=== PATIENT | male | born 1945 | race Caucasian/White ===

== ENCOUNTER 2016-08-04 18:03 | Inpatient (IN) | payer MEDICARE, OTHER ==
[2016-08-04] VITALS (7 sets, daily range): BP systolic 109–143; BP diastolic 49–89
[~2016-08-04] VITALS: Ht 188 cm; Wt 109.8 kg
[~2016-08-04 18:03] MED LIST: AMIO200T50 PO; AMIO400T5 PO; AMOX-355 PO; ASP325TEC PO; ASPI-983 PO; ATOR80TA PO; ATOR80TA76 PO; CALC-787 PO; CALC-9 PO; CEPH500T PO; CLOP75TA PO; CLOP75TA28 PO; DCS100C PO; DIGO250T PO; DIGO250T15 PO; DILT180C84 PO; DLT240CCR PO; DRON400T2 PO; FRSM40T PO; FURO40TA4 PO; FURO80TA3 PO; GLIM2TAB PO; GLIM4TAB PO; HYDR-3720 PO; HYDR-3820 PO; HYDR1TAB86 PO; KCL10CCR PO; KCL20TCR PO; LEVO150T6 PO; LISI-552 PO; LISI10TA PO; LSNP20T PO; LVT.15T PO; MAGN250T7 PO; MAGN400T6 PO; METF-380 PO; METF1000 PO; METF500T8 PO; METFOR850T PO; METH5TAB86 PO; METO-272 PO; METO50TA7 PO; MORP30CA16 PO; NEBI5TAB8 PO; OMEG-109 PO; OMEG100010 PO; PANT40SU PO; PANT40TA PO; PANT40TA3 PO; PGLT30T PO; POTA20TA8 PO; PRAM1.5T4 PO; PRAM1.5T5 PO; PRAM1TAB3 PO; PRAM1TAB5 PO; RIVA20TA2 PO; ROPI2TAB28 PO; ROPI4TAB21 PO; ROPI4TAB3 PO; SITA100T PO; TRAZ-28 PO; VENL37.513 PO; WARF-47 PO; WARF2TAB6 PO; WARF3TAB PO; WARF3TAB6 PO; WARF4TAB PO; WARF4TAB7 PO; WRF2T PO
--- OUTSIDE RECORDS SUMMARY | 2016-08-04 18:08 | XMS REPORT | Continuity of Care Document ---
Author Author [facility] Organization [facility] Address Unknown Phone Unavailable Care Team Providers Care Paramedic Supervisor Name Role Phone DEYA DENNEY MD PCP Insurance Providers Payer Name Policy Number Subscriber Name Relationship [employer] [id number] Lorna Guzman 19 Self / Same As Patient [employer] [id number] Lorna Guzman Self / Same As Patient Advance Directives Directive Response Recorded Date/Time Advance Directives No 07/08/16 9:45am Health Care Power of Assessment Technician No 07/08/16 9:45am Organ Donor No 07/08/16 9:45am Resuscitation Status DNR-Pt Request 07/08/16 9:45am Problems Active Problems Medical Problem Onset Date Status CHF Unknown Acute COPD Unknown Acute Diabetic ulcer of ankle Unknown Acute Hypoxia Unknown Acute Pneumonia Unknown Acute Supratherapeutic INR Unknown Acute atrial fibrillation with rapid ventricular respons Unknown Acute atrial fibrillation with rapid ventricular respons Unknown Acute Medications Current Home Medications Medication Dose Units Route Directions Days/Qty Instructions Start Date Calcium Carbonate/Vitamin D3 1 Each 1 Tab Oral Daily 11/22/12 Sitagliptin Phosphate 100 Mg 100 Mg Oral Bedtime 11/22/12 Lisinopril 20 Mg 20 Mg Oral Daily 02/26/16 Metoprolol Succinate 50 Mg 50 Mg Oral Daily 02/26/16 Glimepiride 4 Mg 4 Mg Oral Daily 02/26/16 [place]-3 Fatty Acids/Fish Oil 1 Each 1,200 Mg Oral Daily 04/07/16 Pantoprazole Sodium 40 Mg 40 Mg Oral Daily 04/07/16 Furosemide 40 Mg 80 Mg Oral Daily TAKES 2 (40 MG) TABLETS 04/07/16 Pramipexole Di-Hcl 1.5 Mg 1.5 Mg Oral Bedtime 04/07/16 Levothyroxine Sodium 150 Mcg 150 Mcg Oral Daily 04/07/16 Potassium Chloride 20 Meq 20 Meq Oral Twice A Day 04/07/16 Atorvastatin Calcium 80 Mg 80 Mg Oral Bedtime 04/07/16 Hydrocodone/Acetaminophen 1 Each 1 Tab Oral Every 6 Hours as needed for Pain 04/07/16 Trazodone Hcl 50 Mg 50 Mg Oral Bedtime 07/03/16 Warfarin Sodium 3 Mg 3 Mg Oral Daily 07/05/16 Aspirin 81 Mg 81 Mg Oral Daily 07/05/16 Metformin Hcl 500 Mg 500 Mg Oral Daily@07 90 07/13/16 Methylphenidate Hcl 5 Mg 5 Mg Oral Twice A Day 60 07/13/16 Past Home Medications Medication Directions Ordered Status Levothyroxine Sodium (Levothroid) 150 Mcg Tablet, 150 Mcg Oral Bedtime Discontinued Warfarin Sodium 2 Mg Tab, 2 Mg Oral Daily 10/07/10 Discontinued Metformin Hcl (Glucophage) 850 Mg Tablet, 1 Each Oral Twice A Day With Meals 10/07/10 Discontinued Furosemide (Lasix) 40 Mg Tablet, 1 Each Oral Daily 10/07/10 Discontinued Potassium Chloride 10 Meq Tablet.sa, 10 Meq Oral Daily 10/07/10 Discontinued Lisinopril (Zestril) 10 Mg Tablet, 10 Mg Oral Daily 10/07/10 Discontinued Furosemide (Lasix) 80 Mg Tablet, 80 Mg Oral Daily 10/12/10 Discontinued Metformin Hcl (Glucophage) 1,000 Mg Tablet, 1000 Mg Oral Twice A Day Discontinued Potassium Chloride 20 Meq Tab, 20 Meq Oral Twice A Day 10/12/10 Discontinued Aspirin 325 Mg Tabec, 325 Mg Oral Daily 10/12/10 Discontinued Atorvastatin Calcium 80 Mg Tablet, 80 Mg Oral Bedtime 10/12/10 Discontinued Clopidogrel Bisulfate 75 Mg Tablet, 75 Mg Oral Daily 10/12/10 Discontinued [place]-3/Dha/Epa/Fish Oil 1,000 Mg Capsule, 1000 Mg Oral Twice A Day 10/12/10 Discontinued Pantoprazole Sodium 40 Mg Suspdr.pkt, 40 Mg Oral Daily 10/12/10 Discontinued Pramipexole Di-Hcl 1 Mg Tablet, 1 Mg Oral Bedtime 10/12/10 Discontinued Sitagliptin Phosphate 100 Mg Tablet, 100 Mg Oral Daily 03/07/11 Discontinued Amiodarone Hcl 200 Mg Tab, 200 Mg Oral Daily 06/28/12 Discontinued Furosemide 40 Mg Tab, 80 Mg Oral Daily 06/28/12 Discontinued Pramipexole Di-Hcl 1 Mg Tablet, 1 Mg Oral Daily 06/28/12 Discontinued Nebivolol Hcl 5 Mg Tablet, 5 Mg Oral Daily 06/28/12 Discontinued Calcium Citrate/Vitamin D3 1 Each Tablet, 600 Mg Oral Twice A Day 06/28/12 Discontinued Lisinopril 20 Mg Tab, 20 Mg Oral Bedtime 11/22/12 Discontinued Potassium Chloride 20 Meq Tabsr, 20 Meq Oral Twice A Day 11/22/12 Discontinued Pantoprazole Sodium 40 Mg Tablet.dr, 40 Mg Oral Bedtime 11/22/12 Discontinued Magnesium Oxide 250 Mg Tablet, 250 Mg Oral Daily 11/22/12 Discontinued Glimepiride 4 Mg Tablet, 4 Mg Oral Daily 11/22/12 Discontinued Pramipexole Di-Hcl 1 Mg Tablet, 1 Mg Oral Daily 11/22/12 Discontinued Acetaminophen/Hydrocodone Bitart (Lortab) 1 Each Tablet, 10-500 Mg Oral Twice A Day as needed 11/22/12 Discontinued Furosemide 40 Mg Tab, 80 Mg Oral Daily 12/14/12 Discontinued Rivaroxaban 20 Mg Tablet, 20 Mg Oral Daily 12/14/12 Discontinued Nebivolol Hcl 5 Mg Tablet, 1 Each Oral Daily 12/14/12 Discontinued Dronedarone Hydrochloride 400 Mg Tablet, 400 Mg Oral Twice A Day 12/14/12 Discontinued Ropinirole Hcl 2 Mg Tab.er.24h, 2 Mg Oral Hsprn 12/14/12 Discontinued Glimepiride 2 Mg Tablet, 4 Mg Oral Bedtime 08/19/13 Discontinued Warfarin Sodium 3 Mg Tablet, 3 Mg Oral Daily 08/19/13 Discontinued Ropinirole Hcl 4 Mg Tab.er.24h, 2 Mg Oral Bedtime 08/19/13 Discontinued Morphine Sulfate 30 Mg Cap.er.pel, 30 Mg Oral Bedtime 08/19/13 Discontinued Venlafaxine Hcl 37.5 Mg Tablet, 37.5 Mg Oral Daily 08/19/13 Discontinued Nebivolol Hcl 5 Mg Tablet, 1 Each Oral Daily 08/20/13 Discontinued Diltiazem Hcl 240 Mg Cap.sr.24h, 240 Mg Oral Daily@0900 08/22/13 Discontinued Digoxin 250 Mcg Tablet, 0.25 Mg Oral Daily 08/22/13 Discontinued Hydrocodone Bit/Acetaminophen 1 Each Tablet, 1 Each Oral Every 6 Hours as needed for Pain 09/01/13 Discontinued Docusate Sodium 100 Mg Capsule, 200 Mg Oral Daily for Shortness Of Breath Discontinued Warfarin Sodium 4 Mg Tablet, 4 Mg Oral Daily 09/04/13 Discontinued Nebivolol Hcl 5 Mg Tablet, 5 Mg Oral Bedtime 10/09/13 Discontinued Digoxin (Lanoxin) 250 Mcg Tablet, 250 Mcg Oral Bedtime 10/09/13 Discontinued Warfarin Sodium 4 Mg Tablet, 4 Mg Oral Bedtime 10/09/13 Discontinued Ropinirole Hcl 4 Mg Tablet, 2-4 Mg Oral Twice A Day as needed for Restlessness 10/17/13 Discontinued Acetaminophen/Hydrocodone Bitart ([place]) 1 Each Tablet, 1 Tab Oral Every 6 Hours as needed for Pain 10/17/13 Discontinued Warfarin Sodium 2 Mg Tablet, 2 Mg Oral Daily 10/17/13 Discontinued Glimepiride 4 Mg Tablet, 4 Mg Oral Bedtime 10/17/13 Discontinued Docusate Sodium 100 Mg Capsule, 200 Mg Oral Twice A Day 10/17/13 Discontinued Magnesium Oxide 400 Mg Tablet, 1 Each Oral Daily 04/13/14 Discontinued Pramipexole Di-Hcl 1.5 Mg Tablet, 1.5 Mg Oral Bedtime 04/13/14 Discontinued Warfarin Sodium 4 Mg Tablet, 4 Mg Oral Daily 04/13/14 Discontinued Warfarin Sodium 2 Mg Tablet, 2 Mg Oral As Directed 04/13/14 Discontinued Warfarin Sodium 3 Mg Tablet, 3 Mg Oral As Directed 04/13/14 Discontinued Warfarin Sodium 3 Mg Tablet, 3 Mg Oral As Directed 04/13/14 Discontinued Nebivolol Hcl 5 Mg Tablet, 10 Mg Oral Bedtime 04/15/14 Discontinued Ropinirole Hcl 4 Mg Tablet, 4 Mg Oral 02/26/16 Discontinued Cephalexin 500 Mg Tablet, 500 Mg Oral Three Times A Day 02/26/16 Discontinued Warfarin Sodium 3 Mg Tablet, 3 Mg Oral Daily 04/07/16 Discontinued Metformin Hcl 1,000 Mg Tablet, 1000 Mg Oral Twice A Day 04/07/16 Discontinued Clopidogrel Bisulfate 75 Mg Tablet, 75 Mg Oral Daily 04/08/16 Discontinued Aspirin 81 Mg Tablet.dr, 81 Mg Oral Daily 04/08/16 Discontinued Warfarin Sodium 2 Mg Tablet, 2 Mg Oral As Directed 07/03/16 Discontinued Metformin Hcl 1,000 Mg Tablet, 1000 Mg Oral Twice Daily After Meals 07/03/16 Discontinued Warfarin Sodium 3 Mg Tablet, 3 Mg Oral Daily 07/03/16 Discontinued Diltiazem Hcl 180 Mg Cap.er.24h, 180 Mg Oral Daily 07/04/16 Discontinued Amoxicillin/Potassium Clav 1 Each Tablet, 1 Each Oral Twice A Day 07/04/16 Discontinued Amoxicillin/Potassium Clav 1 Each Tablet, 1 Tab Oral Twice A Day 07/05/16 Discontinued Clopidogrel Bisulfate 75 Mg Tablet, 75 Mg Oral Daily 07/05/16 Discontinued Diltiazem Hcl 180 Mg Cap.er.24h, 180 Mg Oral Daily 07/05/16 Discontinued Social History Social History Problem Response Recorded Date/Time Alcohol Use Denies Use 02/26/2016 9:35pm Recreational Drug Use No 02/26/2016 9:35pm Recent Foreign Travel No 04/13/2014 6:00am Recent Infectious Disease Exposure No 04/13/2014 6:00am Hospitalization with Isolation Denies 04/15/2014 1:23pm Sexually Transmitted Disease No 07/05/2016 3:29pm HIV/AIDS No 07/05/2016 3:29pm Type Used Cigars 07/13/2016 4:33pm Recent Hopitalizations No 07/05/2016 3:29pm Sexually Transmitted Disease No 07/05/2016 3:29pm Hospitalization with Isolation Denies 04/15/2014 1:23pm Hospital Discharge Instructions No hospital discharge instructions. Plan of Care Discharge Date 07/13/16 4:33pm Disposition 01 HOME, SELF-CARE Instructions/Education Provided COPD Including Emphysema (DC) Exacerbation of COPD Prescriptions See Medication Section Referrals DEYA DENNEY MD (Unspecified) - 07/19/16 Address: [address] [place] [address] [address] [place] [address] [phone] Reason(s) for Referral: CALL DR DENNEY OFFICE FOR APPOINTMENT ON TUESDAY Additional Instructions/Education TAKE FIRST DOSE RITALIN WHEN YOU GET UP, TAKE SECOND DOES 4-5 HOURS LATER CONTINUE OXYGEN AT 3 LITERS PER NC FOLLOW UP TUESDAY Care Plan and Goals Functional Status Query Response Date Recorded Patient Orientation Person Place Time Situation July 12, 2016 2:30pm Patient Orientation Person Place Time Situation July 13, 2016 4:33pm Comprehension Ability Understands Concepts July 13, 2016 8:31am Allergies, Adverse Reactions, Alerts No known allergies. Immunizations No immunization records. Vital Signs Acute Vital Signs Vital Response Date/Time Temperature (Fahrenheit) 97.0 degrees F (97.6 - 99.5) 07/13/2016 4:31pm Temperature (Calculated Celsius) 36.68607 degrees C (36.4 - 37.5) 07/13/2016 8:00am Temperature Source Tympanic 07/13/2016 4:31pm Pulse Rate (adult) 92 bpm (60 - 90) 07/13/2016 4:31pm Respiratory Rate 19 bpm (12 - 24) 07/13/2016 4:31pm O2 Sat by Pulse Oximetry 97 % (88 - 100) 07/13/2016 4:31pm Blood Pressure 131/61 mm Hg 07/13/2016 4:31pm Blood Pressure Mean 84 mm Hg 07/13/2016 8:00am Pain Numeric Pain Scale 0-No Pain 07/13/2016 4:31pm Height (Feet) 6 feet 07/05/2016 3:28pm Height (Inches) 2.00 inches 07/05/2016 3:28pm Height (Calculated Centimeters) 187.103073 cm 07/05/2016 3:28pm Weight (Pounds) 227 pounds 07/05/2016 3:28pm Weight (Ounces) 8.0 oz 07/05/2016 3:28pm Weight (Calculated Grams) 934372.27 gm 07/05/2016 3:28pm Weight (Calculated Kilograms) 103.898885 kilograms 07/05/2016 3:28pm Calculated BMI 29.2 07/05/2016 3:28pm Capillary Refill Capillary Refill Less Than 3 Seconds 07/02/2016 9:03pm Results Laboratory Results Test Name Result Units Flags Reference Collection Date/Time Result Date/ Time Comments White Blood Count 7.6 10^3/uL 4.3-11.0 07/04/2016 5:10am 07/04/2016 5: 22am Red Blood Count 3.27 10^6/uL L 4.35-5.85 07/04/2016 5:10am 07/04/2016 5: 22am Hemoglobin 9.4 G/DL L 13.3-17.7 07/04/2016 5:10am 07/04/2016 5:22am Hematocrit 29 % L 40-54 07/04/2016 5:10am 07/04/2016 5:22am Mean Corpuscular Volume 89 FL 80-99 07/04/2016 5:07/04/2016 5: 22am Mean Corpuscular Hemoglobin 29 PG 25-34 07/04/2016 5:07/04/2016 5: 22am Mean Corpuscular Hemoglobin Concent 32 G/DL 32-36 07/04/2016 5: 5:22am Red Cell Distribution Width 19.0 % H 10.0-14.5 07/04/2016 5:2015 5:22am Platelet Count 212 10^3/uL 130-400 07/04/2016 5:07/04/2016 5:22am Mean Platelet Volume 10.0 FL 7.4-10.4 07/04/2016 5:07/04/2016 5: 22am Neutrophils (%) (Auto) 86 % H 42-75 07/04/2016 5:07/04/2016 5:22am Lymphocytes (%) (Auto) 6 % L 12-44 07/04/2016 5:07/04/2016 5:22am Monocytes (%) (Auto) 7 % 0-12 07/04/2016 5:07/04/2016 5:22am Eosinophils (%) (Auto) 1 % 0-10 07/04/2016 5:07/04/2016 5:22am Basophils (%) (Auto) 0 % 0-10 07/04/2016 5:07/04/2016 5:22am Neutrophils # (Auto) 6.6 X 10^3 1.8-7.8 07/04/2016 5:07/04/2016 5: 22am Lymphocytes # (Auto) 0.4 X 10^3 L 1.0-4.0 07/04/2016 5:07/04/2016 5: 22am Monocytes # (Auto) 0.5 X 10^3 0.0-1.0 07/04/2016 5:07/04/2016 5: 22am Eosinophils # (Auto) 0.1 10^3/uL 0.0-0.3 07/04/2016 5:07/04/2016 5 :22am Basophils # (Auto) 0.0 10^3/uL 0.0-0.1 07/04/2016 5:10am 07/04/2016 5: 22am Neutrophils % (Manual) 84 % 07/02/2016 9:10pm 07/02/2016 9:41pm Band Neutrophils 0 % 07/02/2016 9:10pm 07/02/2016 9:41pm Lymphocytes % (Manual) 74 % 07/02/2016 9:10pm 07/02/2016 9:41pm Monocytes % (Manual) 6 % 07/02/2016 9:10pm 07/02/2016 9:41pm Eosinophils % (Manual) 3 % 07/02/2016 9:10pm 07/02/2016 9:41pm Basophils % (Manual) 0 % 07/02/2016 9:10pm 07/02/2016 9:41pm Blood Morphology Comment NORMAL 07/02/2016 9:10pm 07/02/2016 9: 41pm Prothrombin Time 18.2 SEC H 12.2-14.7 07/04/2016 5:10am 07/04/2016 5: 34am INR Comment 1.5 H 0.8-1.4 07/04/2016 5:10am 07/04/2016 5:34am INTERPRETIVE DATA SUGGESTED THERAPEUTIC RANGE FOR INR'S: VENOUS THROMBOSIS, PULMONARY EMBOLISM, OR PREVENTION OF SYSTEMIC EMBOLISM (EG. IN ATRIAL FIBRILLATION): 2.0 - 3.0 MECHANICAL PROSTHETIC HEART VALVES: 2.5 - 3.5* *NOTE: INR'S UP TO 4.5 MAY BE NECESSARY IN SELECTED GROUPS OF HIGH RISK PATIENTS. [employer] CONSENSUS CONFERENCE ON ANTITHROMBOTIC THERAPY (2000). Activated Partial Thromboplast Time 38 SEC H 24-35 07/02/2016 9:10pm 9:33pm Urine Color YELLOW 07/02/2016 9:03pm 07/02/2016 9:32pm Urine Clarity CLEAR 07/02/2016 9:03pm 07/02/2016 9:32pm Urine pH 6 5-9 07/02/2016 9:03pm 07/02/2016 9:32pm Urine Specific Umbarger 1.015 * 1.016-1.022 07/02/2016 9:03pm 2015 9:32pm Urine Protein NEGATIVE NEGATIVE 07/02/2016 9:03pm 07/02/2016 9:32pm Urine Glucose (UA) NEGATIVE NEGATIVE 07/02/2016 9:03pm 07/02/2016 9: 32pm Urine RBC (Auto) NEGATIVE NEGATIVE 07/02/2016 9:03pm 07/02/2016 9: 32pm Urine Ketones NEGATIVE NEGATIVE 07/02/2016 9:03pm 07/02/2016 9:32pm Urine Nitrite NEGATIVE NEGATIVE 07/02/2016 9:03pm 07/02/2016 9:32pm Urine Bilirubin NEGATIVE NEGATIVE 07/02/2016 9:03pm 07/02/2016 9: 32pm Urine Urobilinogen NORMAL MG/DL NORMAL 07/02/2016 9:03pm 07/02/2016 9: 32pm Urine Leukocyte Esterase NEGATIVE NEGATIVE 07/02/2016 9:03pm 2015 9:32pm Urine RBC NONE /HPF 07/02/2016 9:03pm 07/02/2016 9:32pm Urine WBC NONE /HPF 07/02/2016 9:03pm 07/02/2016 9:32pm Urine Bacteria NONE /HPF 07/02/2016 9:03pm 07/02/2016 9:32pm Urine Squamous Epithelial Cells 0-2 /HPF 07/02/2016 9:03pm 2015 9:32pm Urine Crystals NONE /LPF 07/02/2016 9:03pm 07/02/2016 9:32pm Urine Casts NONE /LPF 07/02/2016 9:03pm 07/02/2016 9:32pm Urine Mucus NEGATIVE /LPF 07/02/2016 9:03pm 07/02/2016 9:32pm Urine Culture Indicated NO 07/02/2016 9:03pm 07/02/2016 9:32pm Sodium Level 135 MMOL/L 135-145 07/04/2016 5:10am 07/04/2016 5:42am Potassium Level 3.7 MMOL/L 3.6-5.0 07/04/2016 5:10am 07/04/2016 5:42am Chloride Level 102 MMOL/L 98-107 07/04/2016 5:10am 07/04/2016 5:42am Carbon Dioxide Level 24 MMOL/L 21-32 07/04/2016 5:10am 07/04/2016 5: 42am Anion Gap 9 MMOL/L 5-14 07/04/2016 5:10am 07/04/2016 5:42am Blood Urea Nitrogen 26 MG/DL H 7-18 07/04/2016 5:10am 07/04/2016 5:42am Creatinine 1.23 MG/DL 0.60-1.30 07/04/2016 5:10am 07/04/2016 5:42am BUN/Creatinine Ratio 21 07/04/2016 5:10am 07/04/2016 5:42am Estimat Glomerular Filtration Rate 58 07/04/2016 5:10am 07/04/2016 5:42am GFR INTERPRETIVE DATA UNITS FOR ESTIMATED GFR (eGFR): mL/min/1.73 M2 REFERENCE RANGE FOR ESTIMATED GFR (eGFR) eGFR NORMAL eGFR >60 MODERATELY DECREASED eGFR 30-59 SEVERLY DECREASED eGFR 15-29 KIDNEY FAILURE <15 (OR DIALYSIS) Glucose Level 212 MG/DL H 70-105 07/04/2016 5:10am 07/04/2016 5:42am Glucometer 173 MG/DL H 70-110 07/03/2016 5:10pm 07/03/2016 5:48pm Calcium Level 8.3 MG/DL L 8.5-10.1 07/04/2016 5:10am 07/04/2016 5:42am Phosphorus Level 3.4 MG/DL 2.3-4.7 07/03/2016 3:40am 07/03/2016 5:02am Magnesium Level 1.8 MG/DL 1.8-2.4 07/03/2016 3:40am 07/03/2016 5:02am Total Bilirubin 0.8 MG/DL 0.1-1.0 07/04/2016 5:10am 07/04/2016 5:42am Alkaline Phosphatase 79 U/L 40-136 07/04/2016 5:10am 07/04/2016 5:42am Aspartate Amino Transf (AST/SGOT) 14 U/L 5-34 07/04/2016 5:10am 2015 5:42am Alanine Aminotransferase (ALT/SGPT) 15 U/L 0-55 07/04/2016 5:10am 07/04 5:42am Total Creatine Kinase 160 U/L 30-200 07/02/2016 9:10pm 07/02/2016 9: 43pm Creatine Kinase MB 4.4 NG/ML <6.6 07/02/2016 9:10pm 07/02/2016 9:55pm Troponin I < 0.30 NG/ML <0.30 07/02/2016 9:10pm 07/02/2016 9:55pm B-Type Natriuretic Peptide 780.4 PG/ML H <100.0 07/02/2016 9:10pm 2015 9:58pm Total Protein 5.7 G/DL L 6.4-8.2 07/04/2016 5:10am 07/04/2016 5:42am Albumin 3.2 G/DL 3.2-4.5 07/04/2016 5:10am 07/04/2016 5:42am Lactic Acid Level 1.4 MMOL/L 0.5-2.0 07/02/2016 9:10pm 07/02/2016 9: 38pm Thyroid Stimulating Hormone (TSH) 1.08 UIU/ML 0.35-4.94 07/04/2016 5: 10am 07/04/2016 6:04am TSH [place] Testing 1.98 UIU/ML 0.35-4.94 07/02/2016 9:10pm 07/02/2016 10:03pm Arterial Blood pH 7.41 7.37-7.43 07/02/2016 10:30pm 07/02/2016 10: 43pm Arterial Blood Partial Pressure CO2 36 MMHG 35-45 07/02/2016 10:30pm 10:43pm Arterial Blood Partial Pressure O2 70 MMHG L 79-93 07/02/2016 10:30pm 10:43pm Arterial Blood HCO3 22 MMOL/L L 23-27 07/02/2016 10:30pm 07/02/2016 10: 43pm Arterial Blood Total CO2 23.4 MMOL/L 21.0-31.0 07/02/2016 10:30pm 07/02 10:43pm Arterial Blood Base Excess -2.2 MMOL/L -2.5-2.5 07/02/2016 10:30pm 10:43pm Arterial Blood Oxygen Saturation 95 % 94-100 07/02/2016 10:30pm 2015 10:43pm Blood Gas Puncture Site RT BRACH 07/02/2016 10:30pm 07/02/2016 10: 43pm Efe Test YES-POS 07/02/2016 10:30pm 07/02/2016 10:43pm Blood Gas Inspired Oxygen 4L 07/02/2016 10:30pm 07/02/2016 10:43pm Blood Gas Ventilator Setting NO 07/02/2016 10:30pm 07/02/2016 10: 43pm Blood Gas Patient Temperature 98.0 07/02/2016 10:30pm 07/02/2016 10 :43pm Pending Laboratory Results Test Name Collection Date/Time Microbiology Results Procedure Source Result Collection Date/Time Result Date/Time Blood Culture Peripheral, Rt Hand No growth 07/02/2016 9:49pm 07/03/2016 4: 27pm Blood Culture Peripheral, Not Otherwise Specified No growth 07/02/2016 9: 10pm 07/03/2016 4:27pm MRSA Screen Nasal MRSA not isolated 07/02/2016 11:35pm 07/04/2016 9:52am Procedures Procedure Status Date Provider(s) Tracing only of electrocardiogram Completed 07/02/16 ALEXANDER PETIT DO Tracing only of electrocardiogram Completed 07/02/16 CHARLA NICOLE DO Color Doppler echocardiography Active 07/03/16 FAWN IRENE MD [facility] FAC CCDS Tracing only of electrocardiogram Completed 07/03/16 FAWN IRENE MD [facility] FACC CCDS Encounters Encounter Location Arrival/Admit Date Discharge/Depart Date Attending Provider Discharged Inpatient [facility] 07/08/16 8:36am 4:33pm DEYA DENNEY MD Discharged Inpatient [facility] 07/05/16 2:45pm 8:36am DEYA DENNEY MD Discharged Inpatient [facility] 07/02/16 10:10pm 4:15pm DEYA DENNEY MD
[2016-08-04] MEDS ORDERED: RT-ALBUTEROL/IPRATROPIUM 3 ML (DUONEB) VIAL ONE (18:11)
[2016-08-04] MEDS ORDERED: methylPREDNISolone 125 MG (Solu-MEDROL) VIAL IVP ONE (18:30)
[2016-08-04] MEDS ORDERED: RT-ALBUTEROL/IPRATROPIUM 3 ML (DUONEB) VIAL INH ONE (18:30)
[2016-08-04] MEDS ORDERED: DILTIAZEM 25 MG/5 ML INJ (CARDIZEM) VIAL IVP ONE (18:30)
[2016-08-04 18:36] LABS: BASOPHILS % (AUTO) 0 % (0-10); EOSINOPHILS % (AUTO) 0 % (0-10); LYMPHOCYTES # (AUTO) 0.4 X 10^3 (1.0-4.0); LYMPHOCYTES % (AUTO) 3 % (12-44); MEAN CORPUSCULAR HEMOGLOBIN 29 PG (25-34); MEAN CORPUSCULAR HGB CONC 31 G/DL (32-36); MEAN CORPUSCULAR VOLUME 92 FL (80-99); MEAN PLATELET VOLUME 10.8 FL (7.4-10.4); MONOCYTES # (AUTO) 0.8 X 10^3 (0.0-1.0); MONOCYTES % (AUTO) 6 % (0-12); NEUTROPHILS # (AUTO) 12.9 X 10^3 (1.8-7.8); NEUTROPHILS % (AUTO) 91 % (42-75); PLATELET COUNT 237 10^3/uL (130-400); RED BLOOD COUNT 3.41 10^6/uL (4.35-5.85); RED CELL DISTRIBUTION WIDTH 19.7 % (10.0-14.5); WHITE BLOOD COUNT 14.3 10^3/uL (4.3-11.0)
[2016-08-04] MEDS: DILTIAZEM DRIP 100 MG in SODIUM CHLORIDE (ADD-VANTAGE) 100 ML IV SCH (18:40)
[2016-08-04 18:50] LABS: INR 2.2 (0.8-1.4); PROTHROMBIN TIME PATIENT 24.6 SEC (12.2-14.7)
[2016-08-04 19:01] LABS: ALBUMIN 3.6 G/DL (3.2-4.5); BILIRUBIN,TOTAL 1.4 MG/DL (0.1-1.0); CALCIUM 8.3 MG/DL (8.5-10.1); CREATININE SERUM 1.46 MG/DL (0.60-1.30); POTASSIUM 4.4 MMOL/L (3.6-5.0); TOTAL PROTEIN 6.6 G/DL (6.4-8.2); hs C REACTIVE PROTEIN 4.31 MG/DL (0.00-0.50)
[2016-08-04 19:08] LABS: BASOPHILS % (MANUAL) 1 %; LYMPHOCYTES % (MANUAL) 4 %; NEUTROPHILS % (MANUAL) 88 %
[2016-08-04 19:09] LABS: CRENATED RBC MODERATE; HYPOCHROMASIA MODERATE; POLYCHROMASIA SLIGHT
[2016-08-04 19:42] LABS: BILIRUBIN,URINE NEGATIVE (NEGATIVE); KETONES,URINE NEGATIVE (NEGATIVE); LEUKOCYTE ESTERASE ,URINE NEGATIVE (NEGATIVE); NITRITE,URINE NEGATIVE (NEGATIVE); PH,URINE 5 (5-9); PROTEIN,URINE NEGATIVE (NEGATIVE); UROBILINOGEN,URINE NORMAL (NORMAL)
--- NOTE | 2016-08-04 19:44 | Diagnostic Imaging Report ---
INDICATION: Difficulty breathing. EXAMINATION: Single view of the chest was obtained. COMPARISON: testicular blood present versus 07/04/16. FINDINGS: Five lobe interstitial edema has progressed from prior. There is mild cardiomegaly, increased. There is distention of the upper lobe pulmonary vessels with small bilateral pleural effusions, greater left. IMPRESSION: Worsened failure pattern with increased edema, venous hypertension and bilateral pleural effusions. Dictated by: Dictated on workstation # [id number]
[2016-08-04 19:52] LABS: SQUAMOUS EPITHELIAL CELL,UR RARE /HPF
[2016-08-04] MEDS ORDERED: FUROSEMIDE 40 MG/4 ML INJ (LASIX) IVP ONE (20:00)
[2016-08-04] MEDS ORDERED: CEFEPIME INJECTION 2,000 MG in NORMAL SALINE (BAXTER MINI) 50 ML IV ONE (20:15)
[2016-08-04] MEDS ORDERED: NORMAL SALINE (BAXTER MINI) 50 ML IV ONE (20:24)
[2016-08-04] MEDS ORDERED: CEFEPIME HCL 2 GM (MAXIPIME) VIAL ONE (20:24)
--- NOTE | 2016-08-04 20:25 | ED General ---
General Stated Complaint: SOA Nursing Triage Note: PT'S STEP-DAUGHTER STATES THAT THE PT GOT A BREATHING MACHINE ABOUT A MONTH AGO , HAS BEEN ON 3 LPM, LAST FEW DAYS HAD TO MOVE IT TO 4 LPM AND THE PT STILL FEELS SOB. LABORED BREATHING ON ARRIVAL. Nursing Sepsis Screen: Possible Sepsis Risk Source of Information: Patient, Family, Old Records Exam Limitations: No Limitations History of Present Illness Time Seen by Provider: 18:10 Initial Comments This 70-year-old gentleman with multiple health problems presents to the emergency room in respiratory distress. He was recently admitted for COPD exacerbation with cor pulmonale. He appears to have atrial fibrillation with RVR and is very tight and wheezing. He denies any recent fever. He has been doing nebulizer treatments at home approximately every 4 hours. He reports severe dyspnea on exertion. His primary care providers Dr. Garcia and his ad operations intern is Dr. Treviño. See prior notes from recent admission for more details. Allergies and Home Medications Allergies Coded Allergies: No Known Drug Allergies (Unverified , 07/05/16) Home Medications Aspirin 81 Mg Tablet.dr 81 MG PO DAILY (Reported) Atorvastatin Calcium 80 Mg Tablet 80 MG PO HS (Reported) Calcium Carbonate/Vitamin D3 1 Each Tablet 1 TAB PO DAILY (Reported) Furosemide 40 Mg Tablet 80 MG PO DAILY (Reported) TAKES 2 (40 MG) TABLETS Glimepiride 4 Mg Tablet 4 MG PO DAILY (Reported) Hydrocodone/Acetaminophen 1 Each Tablet 1 TAB PO Q6H PRN PRN PAIN (Reported) Levothyroxine Sodium 150 Mcg Tablet 150 MCG PO DAILY (Reported) Lisinopril 20 Mg Tablet 20 MG PO DAILY (Reported) Metformin HCl 500 Mg Tab.er.24h #90 500 MG PO DAILY@07 Prescribed by: DEYA GARCIA on 07/13/16 1042 Methylphenidate HCl 5 Mg Tablet #60 5 MG PO BID Prescribed by: DEYA GARCIA on 07/13/16 1042 Metoprolol Succinate 50 Mg Tab.er.24h 50 MG PO DAILY (Reported) [place]-3 Fatty Acids/Fish Oil 1 Each Capsule 1,200 MG PO DAILY (Reported) Pantoprazole Sodium 40 Mg Tablet.dr 40 MG PO DAILY (Reported) Potassium Chloride 20 Meq Tab.er.prt 20 MEQ PO BID (Reported) Pramipexole Di-HCl 1.5 Mg Tablet 1.5 MG PO HS (Reported) Sitagliptin Phosphate 100 Mg Tablet 100 MG PO HS (Reported) Trazodone HCl 50 Mg Tablet 50 MG PO HS (Reported) Warfarin Sodium 3 Mg Tablet 3 MG PO DAILY (Reported) Constitutional: no symptoms reported EENTM: other (congestion) Respiratory: see HPI Cardiovascular: see HPI Gastrointestinal: no symptoms reported Genitourinary: no symptoms reported Musculoskeletal: no symptoms reported Skin: no symptoms reported Psychiatric/Neurological: No Symptoms Reported Hematologic/Lymphatic: No Symptoms Reported Past Qlqpvhs-Urbbwe-Wpowgj Hx Patient Social History Alcohol Use: Denies Use Recreational Drug Use: No Smoking Status: Former Smoker Type Used: Cigars Recent Foreign Travel: No Contact w/Someone Who Travel: No Recent Infectious Disease Expo: No Recent Hopitalizations: Yes (SINUS INFECTION 07/2016) Physical Abuse Screen: No Sexual Abuse: No Immunizations Up To Date Tetanus Booster (TDap): Unknown PED Vaccines UTD: No Date of Pneumonia Vaccine: Jul 22, 2013 Date of Influenza Vaccine: Jun 01, 2016 Seasonal Allergies Seasonal Allergies: No Surgeries HX Surgeries: Yes (HEART STENTS) Surgeries: Coronary Stent Respiratory Hx Respiratory Disorders: Yes Respiratory Disorders: COPD Cardiovascular Hx Cardiac Disorders: Yes (STENTS) Cardiac Disorders: Atrial Fibrillation, Chronic Edema/Swelling, Coronary Artery Disease, High Cholesterol, Hypertension Neurological Hx Neurological Disorders: Yes Neurological Disorders: Dementia Reproductive System Hx Reproductive Disorders: No Sexually Transmitted Disease: No HIV/AIDS: No Genitourinary Hx Genitourinary Disorders: No Gastrointestinal Hx Gastrointestinal Disorders: No Musculoskeletal Hx Musculoskeletal Disorders: Yes (RESTLESS LEG SYNDROME) Endocrine Hx Endocrine Disorders: Yes Endocrine Disorders: Hypothyroidsim, Diabetes, Non-Insulin dep HEENT HX ENT Disorders: Yes (WEARS GLASSES TO READ) Hearing Impairment: Denies Cancer Hx Cancer: No Psychosocial Hx Psychiatric Problems: No Integumentary HX Skin/Integumentary Disorder: No Blood Transfusions Hx Blood Disorders: No Family Medical History Significant Family History: Heart Disease, Diabetes, Hypertension Family Medial History: Congestive heart failure 03 FATHER Family history: Arthritis 03 FATHER 03 MOTHER 09 BROTHER 09 SISTER Family history: Hypertension 03 FATHER History of - respiratory disease 03 FATHER 03 MOTHER 09 SISTER No Family History of: Abdominal aortic aneurysm Alcoholism Cancer Family history: Alzheimer's disease Family history: Asthma Family history: Breast disease Family history: Cardiovascular disease Family history: Diabetes mellitus Family history: Gastrointestinal disease Family history: Thyroid disorder Heart disease Kidney disease Myocardial infarction Parkinson's disease Psychotic disorder Seizure disorder Physical Exam Vital Signs Vital Sign - Last 12Hours 08/04/16 18:19 Temp 98.5 Pulse 133 Resp 26 B/P 135/89 Pulse Ox 91 O2 Delivery Nasal Cannula O2 Flow Rate 4 Capillary Refill : Greater Than 3 Seconds General Appearance: WD/WN Moderate Distress HEENT: PERRL/EOMI Normal ENT Inspection Neck: Normal Inspection Respiratory: Accessory Muscle UseNo Crackles, Respiratory Distress Wheezing ( very tight wheezing throughout) Cardiovascular: Irregularly Irregular Tachycardia Other (pitting edema of the lower extremities) Gastrointestinal: Normal Bowel Sounds Non Tender Soft Extremity: Swelling Other (pitting edema of the lower extremities bilaterally with chronic skin changes) Neurologic/Psychiatric: Alert Oriented x3 No Motor/Sensory Deficits Normal Mood/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 control counselor II-XII Norm as Tested Skin: Normal Color Warm/Dry Progress/Results/Core Measures Results/Orders Lab Results Laboratory Tests Test 08/04/16 18:15 08/04/16 19:24 08/05/16 03:48 Range/Units Acanthocytes SLIGHT Activated Partial Thromboplast Time 40 H 24-35 SEC Alanine Aminotransferase (ALT/SGPT) 25 0-55 U/L Albumin 3.6 3.2-4.5 G/DL Alkaline Phosphatase 93 40-136 U/L Anion Gap 10 5-14 MMOL/L Aspartate Amino Transf (AST/SGOT) 24 5-34 U/L B-Type Natriuretic Peptide 909.8 H <100.0 PG/ML BUN/Creatinine Ratio 18 Basophils # (Auto) 0.0 0.0 0.0-0.1 10^3/uL Basophils % (Manual) 1 % Basophils (%) (Auto) 0 0 0-10 % Blood Urea Nitrogen 27 H 7-18 MG/DL C-Reactive Protein High Sensitivity 4.31 H 0.00-0.50 MG/DL Calcium Level 8.3 L 8.5-10.1 MG/DL Carbon Dioxide Level 20 L 21-32 MMOL/L Chloride Level 102 98-107 MMOL/L Creatinine 1.46 H 0.60-1.30 MG/DL Crenated Cell MODERATE Eosinophils # (Auto) 0.0 0.0 0.0-0.3 10^3/uL Eosinophils (%) (Auto) 0 0 0-10 % Estimat Glomerular Filtration Rate 48 Free Thyroxine 1.16 0.70-1.48 NG/DL Glucose Level 287 H 70-105 MG/DL Hematocrit 31 L 28 L 40-54 % Hemoglobin 9.8 L 8.9 L 13.3-17.7 G/DL Hypochromasia MODERATE INR Comment 2.2 H 0.8-1.4 Lactic Acid Level 1.5 0.5-2.0 MMOL/L Lymphocytes # (Auto) 0.4 L 0.3 L 1.0-4.0 X 10^3 Lymphocytes % (Manual) 4 % Lymphocytes (%) (Auto) 3 L 2 L 12-44 % Mean Corpuscular Hemoglobin 29 29 25-34 PG Mean Corpuscular Hemoglobin Concent 31 L 31 L 32-36 G/DL Mean Corpuscular Volume 92 91 80-99 FL Mean Platelet Volume 10.8 H 11.0 H 7.4-10.4 FL Monocytes # (Auto) 0.8 0.2 0.0-1.0 X 10^3 Monocytes % (Manual) 7 % Monocytes (%) (Auto) 6 2 0-12 % Neutrophils # (Auto) 12.9 H 10.7 H 1.8-7.8 X 10^3 Neutrophils % (Manual) 88 % Neutrophils (%) (Auto) 91 H 96 H 42-75 % Platelet Count 237 216 130-400 10^3/uL Polychromasia SLIGHT Potassium Level 4.4 3.6-5.0 MMOL/L Prothrombin Time 24.6 H 12.2-14.7 SEC Red Blood Count 3.41 L 3.10 L 4.35-5.85 10^6/uL Red Cell Distribution Width 19.7 H 19.4 H 10.0-14.5 % Sodium Level 132 L 135-145 MMOL/L Thyroid Stimulating Hormone (TSH) 2.39 0.35-4.94 UIU/ML Total Bilirubin 1.4 H 0.1-1.0 MG/DL Total Protein 6.6 6.4-8.2 G/DL White Blood Count 14.3 H 11.1 H 4.3-11.0 10^3/uL Urine Bacteria NONE /HPF Urine Bilirubin NEGATIVE NEGATIVE Urine Casts NONE /LPF Urine Clarity CLEAR Urine Color YELLOW Urine Crystals NONE /LPF Urine Culture Indicated NO Urine Glucose (UA) 1+ H NEGATIVE Urine Ketones NEGATIVE NEGATIVE Urine Leukocyte Esterase NEGATIVE NEGATIVE Urine Mucus NEGATIVE /LPF Urine Nitrite NEGATIVE NEGATIVE Urine Protein NEGATIVE NEGATIVE Urine RBC NONE /HPF Urine RBC (Auto) NEGATIVE NEGATIVE Urine Specific [place] 1.010 L 1.016-1.022 Urine Squamous Epithelial Cells RARE /HPF Urine Urobilinogen NORMAL NORMAL MG/DL Urine WBC NONE /HPF Urine pH 5 5-9 My Orders Orders-EM SPANN MD Albuterol/Ipra Inhalation Soln (Duoneb I (08/04/16 18:30) Svn Sm Volume Nebulizer Rt-Rfs (08/04/16 18:17) Methylprednisolone Sod Succ (Solu-Medrol (08/04/16 18:30) Albuterol/Ipra Inhalation Soln (Duoneb I (08/04/16 18:11) Cbc With Automated Diff (08/04/16 18:18) Comprehensive Metabolic Panel (08/04/16 18:18) Lactic Acid Analyzer (08/04/16 18:18) Blood Culture (08/04/16 18:18) Sputum Culture (08/04/16 18:18) Ua Culture If Indicated (08/04/16 18:18) Protime With Inr (08/04/16 18:18) Partial Thromboplastin Time (08/04/16 18:18) Chest 1 View, Ap/Pa Only (08/04/16 18:18) O2 (08/04/16 18:18) Saline Lock/Iv-Start (08/04/16 18:18) Saline Lock/Iv-Start (08/04/16 18:18) Vital Signs Adult Sepsis Patie Q1HR (08/04/16 18:18) BNP (08/04/16 18:18) Hs C Reactive Protein (08/04/16 18:18) Diltiazem Injection (Cardizem Injection) (08/04/16 18:30) Sodium Chloride (Ad... W/Diltiazem Drip (08/04/16 18:30) Manual Differential (08/04/16 18:15) Furosemide Injection (Lasix Injection) (08/04/16 20:00) Cefepime Injection (Maxipime Injection) (08/04/16 20:15) Thyroid Stimulating Hormone (08/04/16 20:18) Free T4 (Free Thyroxine) (08/04/16 20:18) Cefepime Injection (Maxipime Injection) (08/04/16 20:24) Normal Saline ([place] Mini) (Ns ([place] (08/04/16 20:24) Medications Given in ED Current Medications Medications Dose Ordered Sig/Rina Route Start Time Stop Time Status Last Admin Dose Admin Albuterol/ Ipratropium 3 ml ONCE ONCE INH 08/04/16 18:30 08/04/16 18:31 DC 08/04/16 18:50 3 ML Cefepime HCl/ Sodium Chloride 50 ml @ 100 mls/hr ONCE ONCE IV 08/04/16 20:15 08/04/16 20:45 DC 08/04/16 20:33 100 MLS/HR Diltiazem HCl 10 mg ONCE ONCE IVP 08/04/16 18:30 08/04/16 18:31 DC 08/04/16 18:39 10 MG Furosemide 80 mg 80 mg ONCE ONCE IVP 08/04/16 20:00 08/04/16 20:01 DC 08/04/16 20:07 80 MG Methylprednisolone Sodium Succinate 62.5 mg ONCE ONCE IVP 08/04/16 18:30 08/04/16 18:31 DC 08/04/16 18:29 62.5 MG Vital Signs/I&O Vital Sign - Last 12Hours 08/04/16 08/04/16 08/04/16 08/04/16 18:19 18:20 18:40 18:45 Temp 98.5 98.5 Pulse 133 122 Resp B/P 135/89 Pulse Ox 91 91 91 O2 Delivery Nasal Cannula Nasal Cannula Nasal Cannula O2 Flow Rate 4 4 5.00 4 08/04/16 08/04/16 08/04/16 08/04/16 19:05 19:30 19:45 20:15 Temp 98.5 98.5 98.5 97.9 Pulse 114 124 121 121 Resp B/P 122/72 116/65 119/72 110/68 Pulse Ox 94 94 94 95 O2 Flow Rate 4 4 4 4 08/04/16 08/04/16 08/04/16 08/04/16 20:30 20:45 21:10 21:15 Temp 97.9 98.5 99.0 Pulse 132 113 105 Resp B/P 119/77 128/82 Pulse Ox 94 95 91 94 O2 Delivery Nasal Cannula Nasal Cannula Nasal Cannula O2 Flow Rate 2 3 6 8.00 08/04/16 08/04/16 08/04/16 08/04/16 21:29 21:30 21:30 21:45 Pulse 113 112 Resp 20 27 B/P 124/85 117/75 Pulse Ox 95 94 94 94 O2 Delivery High Flow N/C High Flow N/C Nasal Cannula Nasal Cannula O2 Flow Rate 8.00 8.00 8.00 8.00 08/04/16 08/04/16 08/04/16 08/04/16 21:49 22:00 22:15 22:30 Pulse 111 138 93 114 Resp 23 19 20 B/P 140/89 143/83 123/78 Pulse Ox 86 93 91 O2 Delivery Nasal Cannula Nasal Cannula Nasal Cannula O2 Flow Rate 8.00 8.00 8.00 08/04/16 08/04/16 08/05/16 08/05/16 22:37 23:00 00:00 00:00 Temp 98.0 Pulse 97 105 Resp 26 22 B/P 109/49 108/75 Pulse Ox 95 94 93 92 O2 Delivery High Flow N/C Nasal Cannula High Flow NC Nasal Cannula O2 Flow Rate 8.00 8.00 8.00 6.00 08/05/16 08/05/16 08/05/16 08/05/16 01:00 01:00 02:00 02:25 Pulse 125 122 110 Resp 25 35 B/P 124/77 110/67 Pulse Ox 91 94 94 O2 Delivery Nasal Cannula Nasal Cannula High Flow N/C O2 Flow Rate 6.00 6.00 8.00 08/05/16 08/05/16 08/05/16 03:22 04:00 04:00 Temp 98.0 99.0 Pulse 110 88 Resp 20 21 B/P 110/67 120/74 Pulse Ox 94 94 95 O2 Delivery High Flow NC High Flow NC O2 Flow Rate 8.00 8.00 8.00 Intake and Output 08/05/16 00:00 Intake Total 0 ml Output Total 600 ml Balance -600 ml Blood Pressure Mean: 104 Progress Note : Progress Note Patient was immediately given a DuoNeb treatment with BiPAP on standby. Solu- Medrol 62.5 mg was administered. Chest x-ray revealed worsening edema and congestion. Atrial fibrillation with RVR was likely contributing. A Cardizem bolus of 10 mg followed by a drip at 10 mg per hour was initiated. Heart rate improved nicely to the one teens. Blood pressure was stable. Patient was found to have an elevated WBC and CRP. There is concern for pneumonia. Broad- spectrum antibiotic coverage was initiated with cefepime. Blood cultures and lactic acid were processed. I had multiple discussions about CODE STATUS with the patient. After discussion with patient and family, it was determined he wishes to be full code at this time but does not want to be dependent on life support for a prolonged period of time. ECG Initial ECG Impression Date: Aug 04, 2016 Initial ECG Impression Time: 18:16 Initial ECG Rate: 129 Initial ECG Rhythm: A Fib/Flutter Initial ECG Impression: Atrial Fibrillation w/RVR Comment Atrial fibrillation with rapid ventricular rate. No significant ST elevation or depression. Diagnostic Imaging Diagonstic Imaging: Xray Plain Films/CT/US/NM/MRI: chest Comments chest x-ray viewed by me and report reviewed. See report below: NAME: YULIANA TOPETE [facility] REC#: [id number] PT STATUS: REG ER : 1945 PHYSICIAN: EM SPANN MD ADMIT DATE: 08/04/16/ER Draft Date of Exam:08/04/16 CHEST 1 VIEW, AP/PA ONLY INDICATION: Difficulty breathing. EXAMINATION: Single view of the chest was obtained. COMPARISON: testicular blood present versus 07/04/16. FINDINGS: Five lobe interstitial edema has progressed from prior. There is mild cardiomegaly, increased. There is distention of the upper lobe pulmonary vessels with small bilateral pleural effusions, greater left. IMPRESSION: Worsened failure pattern with increased edema, venous hypertension and bilateral pleural effusions. Dictated on workstation # [id number] Dict: 08/04/161932 Trans: 08/04/161943 [facility] [id number] Interpreted by: VICENTE JAEGER Departure Communication Time/Spoke to Admitting Phy: 20:05 Communication Case was reviewed with Dr. Patel who would like to patient admitted to the ICU with a cardiology consult. Steroids and broad-spectrum antibiotics will be continued. Time/Spoke to Consulting Physi: 20:15 Communication/Consulting Dr. Hoang was consulted for the atrial fibrillation with RVR. He will be continued on Cardizem drip for the time being. Impression Impression: Primary Impression: Respiratory failure Qualified Code: J96.21 - Acute and chronic respiratory failure with hypoxia Additional Impressions: Atrial fibrillation with RVR COPD exacerbation Pneumonia Qualified Code: J18.9 - Pneumonia, unspecified organism Disposition: ADMITTED INPATIENT Condition: Improved Decision to Admit Reason: Admit from ER (General) Decision to Admit/Date: Aug 04, 2016 Time/Decision to Admit Time: 18:10 Departure-Patient Inst. Referrals: DEYA GARCIA MD (PCP/Family) Primary Care Physician EM SPANN MD Aug 04, 2016 20:25
[2016-08-04 20:55] LABS: THYROID STIMULATING HORMONE 2.39 UIU/ML (0.35-4.94)
[2016-08-04] MEDS ORDERED: DILTIAZEM DRIP 100 MG/NS 100 ML IV SCH ×2 (21:30)
[2016-08-04] MEDS ORDERED: RT-ALBUTEROL/IPRATROPIUM 3 ML (DUONEB) VIAL INH PRN (21:30)
[2016-08-04] MEDS ORDERED: methylPREDNISolone 40 MG/ML (Solu-MEDROL) VIAL IV SCH (22:00)
[2016-08-04] MEDS: LEVOFLOXACIN 750 MG/D5W 150 ML PRE-MIX IV SCH (22:16)
[2016-08-04] MEDS: RT-ALBUTEROL/IPRATROPIUM 3 ML (DUONEB) VIAL INH SCH (22:37)
[2016-08-04] MEDS ORDERED: PHARMACY TO DOSE IV SCH (22:45)
[2016-08-04] MEDS ORDERED: VANCOMYCIN 1 GM ADD-VANTAGE VIAL IV ONE (23:49)
[2016-08-04] MEDS ORDERED: SODIUM CHLORIDE (ADD-VANTAGE) 250 ML ONE (23:49)
[2016-08-05] VITALS (24 sets, daily range): BP systolic 90–149; BP diastolic 35–77
[2016-08-05] MEDS: VANCOMYCIN 1 GM/NS 250 ML IVPB IV SCH ×4 (00:05→00:09)
[2016-08-05] MEDS: RT-ALBUTEROL/IPRATROPIUM 3 ML (DUONEB) VIAL INH SCH ×6 (02:25→22:25)
[2016-08-05] MEDS ORDERED: morphine INJ 4 MG/ML 1 ML (VIAL/SYRINGE) IVP PRN (02:30)
[2016-08-05] MEDS ORDERED: ALPRAZolam 0.25 MG (XANAX) TAB PO ONE (02:30)
[2016-08-05] MEDS: methylPREDNISolone 40 MG/ML (Solu-MEDROL) VIAL IV SCH ×3 (02:36→18:13)
[2016-08-05] MEDS: DILTIAZEM DRIP 100 MG in SODIUM CHLORIDE (ADD-VANTAGE) 100 ML IV SCH ×2 (03:22→20:48)
[2016-08-05 03:59] LABS: BASOPHILS % (AUTO) 0 % (0-10); EOSINOPHILS % (AUTO) 0 % (0-10); LYMPHOCYTES # (AUTO) 0.3 X 10^3 (1.0-4.0); LYMPHOCYTES % (AUTO) 2 % (12-44); MEAN CORPUSCULAR HEMOGLOBIN 29 PG (25-34); MEAN CORPUSCULAR HGB CONC 31 G/DL (32-36); MEAN CORPUSCULAR VOLUME 91 FL (80-99); MONOCYTES # (AUTO) 0.2 X 10^3 (0.0-1.0); MONOCYTES % (AUTO) 2 % (0-12); NEUTROPHILS # (AUTO) 10.7 X 10^3 (1.8-7.8); NEUTROPHILS % (AUTO) 96 % (42-75); PLATELET COUNT 216 10^3/uL (130-400); RED CELL DISTRIBUTION WIDTH 19.4 % (10.0-14.5); WHITE BLOOD COUNT 11.1 10^3/uL (4.3-11.0)
[2016-08-05 04:30] LABS: ALBUMIN 3.2 G/DL (3.2-4.5); BILIRUBIN,TOTAL 1.1 MG/DL (0.1-1.0); CREATININE SERUM 1.55 MG/DL (0.60-1.30); MAGNESIUM 1.9 MG/DL (1.8-2.4); POTASSIUM 4.2 MMOL/L (3.6-5.0); TOTAL PROTEIN 6.1 G/DL (6.4-8.2)
[2016-08-05] MEDS: inSUlin (REGULAR) HUMAN 1 UNIT/0.01 ML (CHARGE PER UNIT) SC SCH ×5 (05:50→21:21)
[2016-08-05] MEDS ORDERED: inSUlin (REGULAR) HUMAN 1 UNIT/0.01 ML (CHARGE PER UNIT) SC SCH (06:00)
--- NOTE | 2016-08-05 07:04 | Pulmonary Consultation ---
History of Present Illness History of Present Illness Date of Consultation 08/05/16 06:59 Date of Admission History of Present Illness 70yo with hx of COPD and cor pulmonale and recent hospitalization presented to ED secondary to acute respiratory distress worse with even little exertion . Upon admission he was noted to be in Afib RVR and was very wheezy. He was using Home SVN treatments without much relief. I am consulted for pulmonary/CC management. Allergies and Home Medications Allergies Coded Allergies: No Known Drug Allergies (Unverified , 07/05/16) Home Medications Aspirin 81 Mg Tablet.dr 81 MG PO DAILY (Reported) Atorvastatin Calcium 80 Mg Tablet 80 MG PO HS (Reported) Calcium Carbonate/Vitamin D3 1 Each Tablet 1 TAB PO DAILY (Reported) Furosemide 40 Mg Tablet 80 MG PO DAILY (Reported) TAKES 2 (40 MG) TABLETS Glimepiride 4 Mg Tablet 4 MG PO DAILY (Reported) Hydrocodone/Acetaminophen 1 Each Tablet 1 TAB PO Q6H PRN PRN PAIN (Reported) Levothyroxine Sodium 150 Mcg Tablet 150 MCG PO DAILY (Reported) Lisinopril 20 Mg Tablet 20 MG PO DAILY (Reported) Metformin HCl 500 Mg Tab.er.24h #90 500 MG PO DAILY@07 Prescribed by: DEYA DENNEY on 07/13/16 1042 Methylphenidate HCl 5 Mg Tablet #60 5 MG PO BID Prescribed by: DEYA DENNEY on 07/13/16 1042 Metoprolol Succinate 50 Mg Tab.er.24h 50 MG PO DAILY (Reported) [place]-3 Fatty Acids/Fish Oil 1 Each Capsule 1,200 MG PO DAILY (Reported) Pantoprazole Sodium 40 Mg Tablet.dr 40 MG PO DAILY (Reported) Potassium Chloride 20 Meq Tab.er.prt 20 MEQ PO BID (Reported) Pramipexole Di-HCl 1.5 Mg Tablet 1.5 MG PO HS (Reported) Sitagliptin Phosphate 100 Mg Tablet 100 MG PO HS (Reported) Trazodone HCl 50 Mg Tablet 50 MG PO HS (Reported) Warfarin Sodium 3 Mg Tablet 3 MG PO DAILY (Reported) Past Kifcijf-Nhyrcw-Xeodww Hx Patient Social History Alcohol Use: Denies Use Recreational Drug Use: No Smoking Status: Former Smoker Type Used: Cigars Recent Foreign Travel: No Contact w/Someone Who Travel: No Recent Infectious Disease Expo: No Recent Hopitalizations: Yes (SINUS INFECTION 07/2016) Physical Abuse Screen: No Sexual Abuse: No Immunizations Up To Date Tetanus Booster (TDap): Unknown PED Vaccines UTD: No Date of Pneumonia Vaccine: Jul 22, 2013 Date of Influenza Vaccine: Jun 01, 2016 Seasonal Allergies Seasonal Allergies: No Surgeries HX Surgeries: Yes (HEART STENTS, LEG STENTS ) Surgeries: Coronary Stent Respiratory Hx Respiratory Disorders: Yes Respiratory Disorders: COPD Cardiovascular Hx Cardiac Disorders: Yes (STENTS) Cardiac Disorders: Atrial Fibrillation, Chronic Edema/Swelling, Coronary Artery Disease, High Cholesterol, Hypertension Neurological Hx Neurological Disorders: Yes Neurological Disorders: Dementia Reproductive System Hx Reproductive Disorders: No Sexually Transmitted Disease: No HIV/AIDS: No Genitourinary Hx Genitourinary Disorders: No Gastrointestinal Hx Gastrointestinal Disorders: No Musculoskeletal Hx Musculoskeletal Disorders: Yes (RESTLESS LEG SYNDROME) Endocrine Hx Endocrine Disorders: Yes Endocrine Disorders: Hypothyroidsim, Diabetes, Non-Insulin dep HEENT HX ENT Disorders: Yes (WEARS GLASSES TO READ) Hearing Impairment: Denies Cancer Hx Cancer: No Psychosocial Hx Psychiatric Problems: No Integumentary HX Skin/Integumentary Disorder: No Blood Transfusions Hx Blood Disorders: No Adverse Reaction to a Blood Tr: No Family Medical History Significant Family History: Heart Disease, Diabetes, Hypertension Family Medial History: Congestive heart failure 03 FATHER Family history: Arthritis 03 FATHER 03 MOTHER 09 BROTHER 09 SISTER Family history: Hypertension 03 FATHER History of - respiratory disease 03 FATHER 03 MOTHER 09 SISTER No Family History of: Abdominal aortic aneurysm Alcoholism Cancer Family history: Alzheimer's disease Family history: Asthma Family history: Breast disease Family history: Cardiovascular disease Family history: Diabetes mellitus Family history: Gastrointestinal disease Family history: Thyroid disorder Heart disease Kidney disease Myocardial infarction Parkinson's disease Psychotic disorder Seizure disorder Review of Systems Constitutional: : Malaise: Sweats: WeaknessNo: Chills, Fever, Other Respiratory: : Cough: Dry: SOB with excertion: Shortness of breath: WheezingNo : Hemoptysis Cardiovascular: : Edema: Lt Headedness: Orthopnea: Paroxysmal Noc. DyspneaNo: Chest Pain Gastrointestinal: No: Abdominal Pain, Constipation, Diarrhea, Hematochezia, Melena, Nausea, Other, Vomiting Genitourinary: No Dysuria, No Frequency, No Incontinence, No Hematuria, No Retention, No Other Musculoskeletal: No: arm pain, back pain, foot pain, hand pain, leg pain, neck pain, other, shoulder pain Skin: No: Bruising, Jaundice, Lesions, Other, Rash Neurological: : Confusion: Incoordination: Weakness Exam Exam Vital Signs Date Time Temp Pulse Resp B/P Pulse Ox O2 Delivery O2 Flow Rate FiO2 08/05/16 06:30 92 High Flow N/C 8.00 08/05/16 06:00 100 22 116/58 94 High Flow NC 8.00 08/05/16 05:00 93 26 98/72 98 High Flow NC 8.00 08/05/16 04:00 99.0 88 21 120/74 95 High Flow NC 8.00 08/05/16 04:00 94 High Flow NC 8.00 08/05/16 03:22 98.0 110 20 110/67 94 8.00 08/05/16 03:00 86 23 119/35 95 Nasal Cannula 6.00 08/05/16 02:25 94 High Flow N/C 8.00 08/05/16 02:00 110 35 110/67 94 Nasal Cannula 6.00 08/05/16 01:00 122 25 124/77 91 Nasal Cannula 6.00 08/05/16 01:00 125 08/05/16 00:00 98.0 105 22 108/75 92 Nasal Cannula 6.00 08/05/16 00:00 93 High Flow NC 8.00 08/04/16 23:00 97 26 109/49 94 Nasal Cannula 8.00 08/04/16 22:37 95 High Flow N/C 8.00 08/04/16 22:30 114 20 123/78 91 Nasal Cannula 8.00 08/04/16 22:15 93 19 143/83 93 Nasal Cannula 8.00 08/04/16 22:00 138 23 140/89 86 Nasal Cannula 8.00 08/04/16 21:49 111 08/04/16 21:45 112 27 117/75 94 Nasal Cannula 8.00 08/04/16 21:30 113 20 124/85 94 Nasal Cannula 8.00 08/04/16 21:30 94 High Flow N/C 8.00 08/04/16 21:29 95 High Flow N/C 8.00 08/04/16 21:15 99.0 105 24 128/82 94 Nasal Cannula 8.00 08/04/16 21:10 98.5 113 26 91 Nasal Cannula 6 08/04/16 20:45 97.9 132 25 119/77 95 3 08/04/16 20:30 94 Nasal Cannula 2 08/04/16 20:15 97.9 121 26 110/68 95 4 08/04/16 19:45 98.5 121 26 119/72 94 4 08/04/16 19:30 98.5 124 24 116/65 94 4 08/04/16 19:05 98.5 114 24 122/73 94 4 08/04/16 18:45 91 Nasal Cannula 4 08/04/16 18:40 98.5 122 26 5.00 08/04/16 18:20 91 Nasal Cannula 4 08/04/16 18:19 98.5 133 26 135/89 91 Nasal Cannula 4 I & O 08/05/16 07:00 Intake Total 1050 ml Output Total 1300 ml Balance -250 ml General Appearance: WD/WN Mild Distress HEENT: PERRL/EOMI Normal ENT Inspection Neck: Normal Inspection Respiratory: Accessory Muscle UseNo Crackles, Decreased Breath Sounds Respiratory Distress Cardiovascular: Irregularly Irregular Tachycardia Other (pitting edema of the lower extremities) Capillary Refill: Greater Than 3 Seconds Extremity: Swelling Other (pitting edema of the lower extremities bilaterally with chronic skin changes) Neurologic/Psychiatric: Alert Oriented x3 No Motor/Sensory Deficits 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 Norm as Tested Skin: Normal Color Warm/Dry Results Lab Laboratory Tests 08/04/16 18:15 08/05/16 03:48 Assessment/Plan Assessment/Plan Pneumonia with sepsis -Almanza culture -continue broad spectrum abx for now COPDAE with pulmonary HTN -SVNs Q4 -add advair Acute on chronic diastolic CHF last echo December 2014 showed EF of 50% -hep lock IVF -repeat echo -Restart lasix Hx of Afib - not well controlled -currently on Cardizem gtt -cardiology consulted -PT has been on Coumadin therapy hx of SUNDAY-- pt states he has never had a CPAP machine -Even if mild SUNDAY is present pt need CPAP therapy especially secondary to comorbidities -Pt will need PSG in lab as out patient. Tobacco dependance Clinical Quality Measures DVT/VTE Risk/Contraindication: Risk Factor Score Per Nursin RFS Level Per Nursing on Admit: 4+=Very High BASSAM MCKEON DO Aug 05, 2016 07:04
[2016-08-05] MEDS: RT-ADVAIR HFA 115/21 MCG PER PUFF IH SCH ×2 (07:59→18:20)
[2016-08-05] MEDS ORDERED: NORMAL SALINE (BAXTER MINI) 50 ML IV ONE (08:49)
[2016-08-05] MEDS ORDERED: CEFEPIME HCL 2 GM (MAXIPIME) VIAL ONE (08:49)
[2016-08-05] MEDS: VANCOMYCIN 1500 MG/NS 500 ML IVPB IV SCH ×4 (09:00→20:02)
[2016-08-05] MEDS: FUROSEMIDE 40 MG/4 ML INJ (LASIX) IVP SCH (09:00)
[2016-08-05] MEDS: CEFEPIME 2 GM/NS 50 ML IVPB IV SCH ×2 (09:00)
[2016-08-05] MEDS ORDERED: METF500T8 PO (09:51)
[2016-08-05] MEDS ORDERED: OXYM15MI4 NS (09:51)
[2016-08-05] MEDS ORDERED: DILT180C PO (09:51)
[2016-08-05] MEDS ORDERED: SODI126M NS (09:51)
--- NOTE | 2016-08-05 12:52 | Diagnostic Imaging Report ---
EXAMINATION: Portable upright radiograph of the chest. INDICATION: Respiratory failure. COMPARISON: 08/04/2016. FINDINGS: There is cardiomegaly with interstitial pulmonary edema and suggestion of alveolar components of edema developing in the bases. There is also bilateral small effusions. The heart size is enlarged. No pneumothorax. The mediastinum and tamika appear unchanged. IMPRESSION: Developing bibasilar infiltrates probably related to worsening pulmonary edema. Dictated by: Dictated on workstation # [id number]
[2016-08-05] MEDS ORDERED: FUROSEMIDE 40 MG/4 ML INJ (LASIX) IVP NR (15:14)
[2016-08-05] MEDS: HYDROcodone/APAP 10 MG/325 MG (LORTAB) TAB PO PRN (16:19)
--- NOTE | 2016-08-05 17:10 | History & Physical-Hospitalist ---
HPI History of Present Illness: HPI/Chief Complaint Kristal is a 70-year-old white male with end-stage COPD and secondary cor pulmonale who noted increased shortness of breath over really unknown period of time. He is a very poor historian. Family report that for the past several days minimal activity was causing desaturation at home despite turning his oxygen level up from 3-5 L. He denied increased swelling over baseline but despite using his nebulizer every 4 hours still wheezing significantly on presentation to the emergency room. There he had a questionable basilar infiltrate but definite evidence for increased pulmonary vascularity bilateral pleural effusions and early pulmonary edema. His chronic atrial fibrillation and under stress his heart rate goes up and so he was also in A. fib with RVR. He denied chills fever but has increasing cough nonproductive. Overnight this is improved receiving Lasix with significant urine output. Date Seen 08/05/16 Attending Physician Mar Patel DO PCP Anthony Garcia MD Referring Physician Date of Admission Aug 04, 2016 at 20:31 Home Medications & Allergies Home Medications Reviewed patient Home Medication Reconciliation Form Allergies Coded Allergies: No Known Drug Allergies (Unverified , 07/05/16) Past Cwzuaye-Dsuywe-Ceetrc Hx Patient Social History Alcohol Use: Denies Use Recreational Drug Use: No Smoking Status: Former Smoker Type Used: Cigars Physical Abuse Screen: No Sexual Abuse: No Recent Foreign Travel: No Contact w/other who traveled: No Recent Hopitalizations: Yes (SINUS INFECTION 07/2016) Recent Infectious Disease Expo: No Immunizations Up To Date Tetanus Booster (TDap): Unknown Date of Pneumonia Vaccine: Jul 22, 2013 Date of Influenza Vaccine: Jun 01, 2016 Seasonal Allergies Seasonal Allergies: No Surgeries HX Surgeries: Yes (HEART STENTS, LEG STENTS ) Surgeries: Coronary Stent Respiratory Hx Respiratory Disorders: Yes Respiratory Disorders: COPD, Emphysema, Pneumonia Cardiovascular Hx Cardiovascular Disorders: Yes (STENTS) Cardiac Disorders: Atrial Fibrillation, Chronic Edema/Swelling, Coronary Artery Disease, High Cholesterol, Hypertension Neurological Hx Neurological Disorders: Yes Neurological Disorders: Dementia Reproductive System Hx Reproductive Disorders: No Sexually Transmitted Disease: No HIV/AIDS: No Genitourinary Hx Genitourinary Disorders: No Gastrointestinal Hx Gastrointestinal Disorders: No Musculoskeletal Hx Musculoskeletal Disorders: Yes (RESTLESS LEG SYNDROME) Endocrine Hx Endocrine Disorders: Yes Endocrine Disorders: Hypothyroidsim, Diabetes, Non-Insulin dep HEENT HX ENT Disorders: Yes (WEARS GLASSES TO READ) Hearing Impairment: Denies Cancer Hx Cancer: No Psychosocial Hx Psychiatric Problems: No Integumentary HX Skin/Integumentary Disorder: No Blood Transfusions Hx Blood Disorders: No Adverse Reaction to a Blood Tr: No Family Medical History Significant Family History: Heart Disease, Diabetes, Hypertension Family Hx: Congestive heart failure 03 FATHER Family history: Arthritis 03 FATHER 03 MOTHER 09 BROTHER 09 SISTER Family history: Hypertension 03 FATHER History of - respiratory disease 03 FATHER 03 MOTHER 09 SISTER No Family History of: Abdominal aortic aneurysm Alcoholism Cancer Family history: Alzheimer's disease Family history: Asthma Family history: Breast disease Family history: Cardiovascular disease Family history: Diabetes mellitus Family history: Gastrointestinal disease Family history: Thyroid disorder Heart disease Kidney disease Myocardial infarction Parkinson's disease Psychotic disorder Seizure disorder Review of Systems Constitutional: weakness Respiratory: cough dyspnea on exertion orthopnea short of breath wheezing Physical Exam Physical Exam Vital Signs Vital Sign - Last 12Hours 08/04/16 18:19 Temp 98.5 Pulse 133 Resp 26 B/P 135/89 Pulse Ox 91 O2 Delivery Nasal Cannula O2 Flow Rate 4 Capillary Refill : Greater Than 3 Seconds General Appearance: Chronically ill Mild Distress Respiratory: Other (so than a few rales in the bases that clear with deep inspiration is clear although breath sounds are diminished posteriorly. Anteriorly no wheezing was noted an apparent significant improvement from last night on admission) Cardiovascular: No Gallop No Murmur Irregularly Irregular Gastrointestinal: Normal Bowel Sounds No Organomegaly No Pulsatile Mass Non Tender Soft Extremity: Other (2+ brawny edema to the mid tibia are noted violaceous changes of venous insufficiency with scaling but no ulceration are noted bilaterally. Extremities are warm but unable to appreciate dorsalis pedis or posterior tibial pulses. No cyanosis is noted.) Neurologic/Psychiatric: Other (fatigue somnolent white male oriented 2 this is pretty much his baseline) Comments Laboratory Tests Test 08/04/16 18:15 08/04/16 19:24 08/05/16 03:48 08/05/16 09:31 Range/Units Acanthocytes SLIGHT Activated Partial Thromboplast Time 40 H 24-35 SEC Alanine Aminotransferase (ALT/SGPT) 25 23 0-55 U/L Albumin 3.6 3.2 3.2-4.5 G/DL Alkaline Phosphatase 93 87 40-136 U/L Anion Gap 10 10 5-14 MMOL/L Aspartate Amino Transf (AST/SGOT) 24 17 5-34 U/L B-Type Natriuretic Peptide 909.8 H 589.3 H <100.0 PG/ML BUN/Creatinine Ratio 18 18 Basophils # (Auto) 0.0 0.0 0.0-0.1 10^3/uL Basophils % (Manual) 1 % Basophils (%) (Auto) 0 0 0-10 % Blood Urea Nitrogen 27 H 28 H 7-18 MG/DL C-Reactive Protein High Sensitivity 4.31 H 0.00-0.50 MG/DL Calcium Level 8.3 L 8.0 L 8.5-10.1 MG/DL Carbon Dioxide Level 20 L 22 21-32 MMOL/L Chloride Level 102 99 98-107 MMOL/L Creatinine 1.46 H 1.55 H 0.60-1.30 MG/DL Crenated Cell MODERATE Eosinophils # (Auto) 0.0 0.0 0.0-0.3 10^3/uL Eosinophils (%) (Auto) 0 0 0-10 % Estimat Glomerular Filtration Rate 48 45 Free Thyroxine 1.16 0.70-1.48 NG/DL Glucose Level 287 H 530 *H 70-105 MG/DL Hematocrit 31 L 28 L 40-54 % Hemoglobin 9.8 L 8.9 L 13.3-17.7 G/DL Hypochromasia MODERATE INR Comment 2.2 H 0.8-1.4 Lactic Acid Level 1.5 0.5-2.0 MMOL/L Lymphocytes # (Auto) 0.4 L 0.3 L 1.0-4.0 X 10^3 Lymphocytes % (Manual) 4 % Lymphocytes (%) (Auto) 3 L 2 L 12-44 % Mean Corpuscular Hemoglobin 29 29 25-34 PG Mean Corpuscular Hemoglobin Concent 31 L 31 L 32-36 G/DL Mean Corpuscular Volume 92 91 80-99 FL Mean Platelet Volume 10.8 H 11.0 H 7.4-10.4 FL Monocytes # (Auto) 0.8 0.2 0.0-1.0 X 10^3 Monocytes % (Manual) 7 % Monocytes (%) (Auto) 6 2 0-12 % Neutrophils # (Auto) 12.9 H 10.7 H 1.8-7.8 X 10^3 Neutrophils % (Manual) 88 % Neutrophils (%) (Auto) 91 H 96 H 42-75 % Platelet Count 237 216 130-400 10^3/uL Polychromasia SLIGHT Potassium Level 4.4 4.2 3.6-5.0 MMOL/L Prothrombin Time 24.6 H 12.2-14.7 SEC Red Blood Count 3.41 L 3.10 L 4.35-5.85 10^6/uL Red Cell Distribution Width 19.7 H 19.4 H 10.0-14.5 % Sodium Level 132 L 131 L 135-145 MMOL/L Thyroid Stimulating Hormone (TSH) 2.39 0.35-4.94 UIU/ML Total Bilirubin 1.4 H 1.1 H 0.1-1.0 MG/DL Total Protein 6.6 6.1 L 6.4-8.2 G/DL White Blood Count 14.3 H 11.1 H 4.3-11.0 10^3/uL Urine Bacteria NONE /HPF Urine Bilirubin NEGATIVE NEGATIVE Urine Casts NONE /LPF Urine Clarity CLEAR Urine Color YELLOW Urine Crystals NONE /LPF Urine Culture Indicated NO Urine Glucose (UA) 1+ H NEGATIVE Urine Ketones NEGATIVE NEGATIVE Urine Leukocyte Esterase NEGATIVE NEGATIVE Urine Mucus NEGATIVE /LPF Urine Nitrite NEGATIVE NEGATIVE Urine Protein NEGATIVE NEGATIVE Urine RBC NONE /HPF Urine RBC (Auto) NEGATIVE NEGATIVE Urine Specific [place] 1.010 L 1.016-1.022 Urine Squamous Epithelial Cells RARE /HPF Urine Urobilinogen NORMAL NORMAL MG/DL Urine WBC NONE /HPF Urine pH 5 5-9 Magnesium Level 1.9 1.8-2.4 MG/DL Phosphorus Level 4.0 2.3-4.7 MG/DL Glucometer 431 *H 70-110 MG/DL Test 08/05/16 12:00 08/05/16 16:16 Range/Units Glucometer 388 H 426 *H 70-110 MG/DL Results Results/Procedures Lab Laboratory Tests 08/04/16 18:15 08/05/16 03:48 Assessment/Plan Admission Diagnosis 1. Acute exacerbation of COPD with cor pulmonale and secondary hypoxia without past history of hypercapnia. Normal CO2 levels speak against hypercapnia as well as the patient is significantly improved we'll not obtain an ABG at this time but continue diuretics and IV Cardizem for now. 2. Pneumonia and sepsis are doubtful that for today continue antibiotics confer with Dr. Verduzco. Likely repeat chest x-ray tomorrow. 3. chronic Atrial fibrillation with RVR brought on by number 1 improved likely more so by diuretic therapy than IV Cartia we'll defer to Dr. Hoang conversion to by mouth. 4. Acute exacerbation of chronic diastolic heart failure secondary to above improving continue IV diuretics. 5. CODE STATUS was discussed with the patient and his family he does not wish to undergo mechanical ventilation but at this time still requests CPR will indicate as such. His prognosis is poor as is his quality of life and I do not expect significant future improvement. Lastly he had undergone sleep study I believe 2 years ago at which time only mild sleep apnea was noted. As I recall he refused CPAP at that time. Clinical Quality Measures DVT/VTE Risk/Contraindication: Risk Factor Score Per Nursin RFS Level Per Nursing on Admit: 4+=Very High ANTHONY GARCIA MD Aug 05, 2016 17:10
--- NOTE | 2016-08-05 17:57 | Consultation-Cardiology ---
HPI-Cardiology Cardiology Consultation: Date of Consultation 08/05/16 Date of Admission Attending Physician Mar Patel DO Admitting Physician Anthony Garcia MD Consulting Physician Moses HOANG MD HPI: Chief Complaint: shortness of breath this is a 70-year-old gentleman whose primary donor processor is Dr. Aguero. he has history of coronary artery disease, peripheral artery disease, chronic diastolic heart failure, COPD, atrial fibrillation. He presents with shortness of breath and has been diagnosed with COPD, pneumonia and acute diastolic heart failure. The patient complains of shortness of breath with mild exertion. He had mild orthopnea. However he denies PND. He denies any palpitations or chest pain. Review of Systems-Cardiology Review of Systems Constitutional: No As described under HPI, No no symptoms reported, No chills, No fever, No lightheadedness, No malaise, No tiredness, No weight loss, No weight gain, No other Eyes: No As described under HPI, No no symptoms reported, No blindness, No blurred vision, No contact lenses, No drainage, No decreased acuity, No foreign body sensation, No glasses, No inflammation, No pain, No photophobia, No previous injury, No shadows, No tunnel vision, No other, No vision change Ears/Nose/Throat: No As described under HPI, No no symptoms reported, No chronic hearing loss, No epistaxis, No ear discharge, No ear pain, No loose teeth, No mouth pain, No mouth swelling, No nasal drainage, No nose pain, No recent hearing loss, No throat pain, No throat swelling, No ulcerations, No other Respiratory: orthopnea shortness of breath Cardiovascular: No no symptoms reported, No As described under HPI, No chest pain, No edema, No irregular heart rate, No lightheadedness, No palpitations, No syncope, No other Gastrointestinal: No no symptoms reported, No As described under HPI, No abdomen distended, No abdominal pain, No blood streaked bowels, No constipation , No diarrhea, No difficulty swallowing, No nausea, No poor appetite, No poor fluid intake, No rectal bleeding, No vomiting, No other, No nausea/vomiting/ diarrhea, No stool coloration changes Genitourinary: No no symptoms reported, No As described under HPI, No burning, No dysuria, No discharge, No frequency, No flank pain, No hematuria, No incontinence, No pain, No urgency, No other, No urine frequency changes, No urine coloration changes Musculoskeletal: No no symptoms reported, No As describe under HPI, No back pain, No gout, No joint pain, No joint swelling, No muscle pain, No muscle stiffness, No neck pain, No other Skin: No no symptoms reported, No As described under HPI, No change in color, No change in hair/nails, No dryness, No lesions, No lumps, No rash, No other, No skin related problems, No ulcerations, No rash on exposed areas, No ulcerations on exposed areas Psychiatric/Neurological: No As described under HPI, No anxiety, No depression , No emotional problems, No focal weakness, No headache, No no symptoms reported , No numbness, No other, No pre-existing deficit, No seizure, No syncope, No tingling, No tremors, No weakness Hematologic: No no symptoms reported, No As described under HPI, No anemia, No blood clots, No easy bleeding, No easy bruising, No swollen glands, No other, No bleeding abnormalities OSP-Fopuip-Iuipyd Hx Patient Social History Alcohol Use: Denies Use Recreational Drug Use: No Smoking Status: Former Smoker Type Used: Cigars Recent Foreign Travel: No Recent Infectious Disease Expo: No Physical Abuse Screen: No Sexual Abuse: No Immunizations Up To Date Tetanus Booster (TDap): Unknown Date of Pneumonia Vaccine: Jul 22, 2013 Date of Influenza Vaccine: Jun 01, 2016 Past Medical History PMH As described under Assessment. Family Medical History Family History: Congestive heart failure 03 FATHER Family history: Arthritis 03 FATHER 03 MOTHER 09 BROTHER 09 SISTER Family history: Hypertension 03 FATHER History of - respiratory disease 03 FATHER 03 MOTHER 09 SISTER No Family History of: Abdominal aortic aneurysm Alcoholism Cancer Family history: Alzheimer's disease Family history: Asthma Family history: Breast disease Family history: Cardiovascular disease Family history: Diabetes mellitus Family history: Gastrointestinal disease Family history: Thyroid disorder Heart disease Kidney disease Myocardial infarction Parkinson's disease Psychotic disorder Seizure disorder Allergies and Home Medications Allergies Coded Allergies: No Known Drug Allergies (Unverified , 07/05/16) Home Medications Atorvastatin Calcium 80 Mg Tablet 40 MG PO HS (Reported) TAKES 1/2 OF A (80 MG) TABLET Calcium Carbonate/Vitamin D3 1 Each Tablet 1 TAB PO BID (Reported) Diltiazem HCl 180 Mg Cap.er.24h 180 MG PO DAILY (Reported) Furosemide 40 Mg Tablet 80 MG PO DAILY (Reported) TAKES 2 (40 MG) TABLETS Glimepiride 4 Mg Tablet 4 MG PO HS (Reported) Hydrocodone/Acetaminophen 1 Each Tablet 1 TAB PO Q6H PRN PRN PAIN (Reported) Levothyroxine Sodium 150 Mcg Tablet 150 MCG PO HS (Reported) Lisinopril 20 Mg Tablet 20 MG PO DAILY (Reported) LAST FILLED 05/10/16 #30 Metformin HCl 500 Mg Tab.er.24h 500 MG PO BID (Reported) Metoprolol Succinate 50 Mg Tab.er.24h 50 MG PO HS (Reported) Kirvin-3 Fatty Acids/Fish Oil 1 Each Capsule 1,200 MG PO BID (Reported) Oxymetazoline HCl 15 Ml Mist 1 SPRAY NS DAILY PRN PRN PRN CONGESTION (Reported) Pantoprazole Sodium 40 Mg Tablet.dr 40 MG PO HS (Reported) Potassium Chloride 20 Meq Tab.er.prt 20 MEQ PO BID (Reported) Pramipexole Di-HCl 1.5 Mg Tablet 1.5 MG PO HS (Reported) Sitagliptin Phosphate 100 Mg Tablet 100 MG PO HS (Reported) Sodium Chloride 126 Ml Mist 1 SPRAY NS DAILY PRN PRN PRN CONGESTION (Reported) Trazodone HCl 50 Mg Tablet 50 MG PO HS PRN PRN SLEEP (Reported) Warfarin Sodium 3 Mg Tablet 3 MG PO DAILY (Reported) Physical Exam-Cardiology Physical Exam Vital Signs/I&O Vital Sign - Last 12Hours 08/05/16 08/05/16 08/05/16 08/05/16 06:00 06:30 07:00 07:00 Pulse 100 105 106 Resp 22 17 B/P 116/58 113/72 Pulse Ox 94 92 96 O2 Delivery High Flow NC High Flow N/C High Flow NC O2 Flow Rate 8.00 8.00 8.00 08/05/16 08/05/16 08/05/16 08/05/16 08:00 08:00 08:00 08:00 Temp 97.8 Pulse 102 Resp 7 B/P 90/64 Pulse Ox 96 96 95 O2 Delivery High Flow NC High Flow N/C High Flow NC O2 Flow Rate 7.00 8.00 8.00 08/05/16 08/05/16 08/05/16 08/05/16 09:00 09:57 12:13 12:13 Temp 96.9 Pulse 101 Resp 24 B/P 130/44 Pulse Ox 94 97 96 O2 Delivery High Flow NC High Flow N/C High Flow NC O2 Flow Rate 8.00 5.00 7.00 08/05/16 08/05/16 08/05/16 08/05/16 13:00 14:09 16:00 16:00 Temp 97.9 Pulse 106 Pulse Ox 97 96 O2 Delivery High Flow N/C High Flow NC O2 Flow Rate 5.00 7.00 Intake and Output 08/05/16 00:00 Intake Total 200 ml Output Total 600 ml Balance -400 ml Capillary Refill : Greater Than 3 Seconds Constitutional: No appears stated age, No AAO x 3, No apparent distress, No PERRL, No well-developed, No well-nourished, No other HEENT: No PERRL, No normal ENT inspection, No TMs normal, No pharynx normal, No scleral icterus (R), No scleral icterus (L), No pale conjunctivae (R), No pale conjunctivae (L), No photophobia, No TM abnormal (R), No TM abnormal (L), No pharyngeal erythema, No tonsillar exudate, No other, No discharge, No EOMI, No hearing is well preserved, No hard of hearing, No oral hygience is good, No ulceration, No xanthelasmas are seen Neck: No non-tender, No full range of motion, No supple, No normal inspection, No carotid bruit, No limited range of motion, No lymphadenopathy (R), No lymphadenopathy (L), No tender lateral, No tender midline, No thyromegaly, No other, No carotid pulses are 2 + bilaterally, No with good upstrokes Respiratory: chest expansion is symmetric chest is bilaterally symmetric crackles Cardiovascular: No regular rate-rhythm, irregularly irregularNo extra beats, No parasternal heave is noted, No JVD, No edema, No bradycardia, No tachycardia , No point of maximal impulse, No cardiac thrills are palpable, No S1 and S2, No gallop/S3, No gallop/S4, No diastolic murmur, No systolic murmur, No friction rub, No click, No other Gastrointestinal: No tender, No soft, No round, No distended, No pulsatile mass , No organomegaly, No guarding, No rebound, No tenderness, No hernia, No mass, No audible bowel sounds, No abnormal bowel sounds, No abdominal bruits, No spleenomegaly, No other Rectal: deferred Extremities: No normal range of motion, No non-tender, No normal inspection, No pedal edema, No calf tenderness, No normal capillary refill, No pelvis stable , No calf tenderness, No inflammation, No pedal edema, No slow capillary refill , No swelling, No other, No abrasion, No clubbing, No cyanosis, No ecchymosis, No laceration, No no lower extremity edema bilateral, No significant edema, No tenderness, No wound Neurologic/Psychiatric: No taker out II-XII nml as tested, No no motor/sensory deficits, No alert, No normal mood/affect, No oriented x 3, No abnormal cerebellar tests, No abnormal taker out II-XII, No abnormal gait, No aphasia, No EOM palsy, No facial droop, No motor weakness, No sensory deficit, No depressed affect, No disoriented x 3, No other, No grossly intact, No power is 5/5 both on sides Skin: No normal color, No warm/dry, No cyanosis, No cool, No diaphoresis, No damp, No ecchymosis, No jaundice, No mottled, No pallor, No rash, No tattoos/ piercings, No ulcerations, No rash on exposed areas, No ulcerations on exposed areas, No other Data Review Labs Laboratory Tests 08/04/16 18:15: Acanthocytes SLIGHT, Activated Partial Thromboplast Time 40H, Alanine Aminotransferase (ALT/SGPT) 25, Albumin 3.6, Alkaline Phosphatase 93, Anion Gap 10, Aspartate Amino Transf (AST/SGOT) 24, B-Type Natriuretic Peptide 909.8H, BUN /Creatinine Ratio 18, Basophils # (Auto) 0.0, Basophils % (Manual) 1, Basophils (%) (Auto) 0, Blood Urea Nitrogen 27H, C-Reactive Protein High Sensitivity 4.31H , Calcium Level 8.3L, Carbon Dioxide Level 20L, Chloride Level 102, Creatinine 1.46H, Crenated Cell MODERATE, Eosinophils # (Auto) 0.0, Eosinophils (%) (Auto) 0, Estimat Glomerular Filtration Rate 48, Free Thyroxine 1.16, Glucose Level 287H, Hematocrit 31L, Hemoglobin 9.8L, Hypochromasia MODERATE, INR Comment 2.2H , Lactic Acid Level 1.5, Lymphocytes # (Auto) 0.4L, Lymphocytes % (Manual) 4, Lymphocytes (%) (Auto) 3L, Mean Corpuscular Hemoglobin 29, Mean Corpuscular Hemoglobin Concent 31L, Mean Corpuscular Volume 92, Mean Platelet Volume 10.8H, Monocytes # (Auto) 0.8, Monocytes % (Manual) 7, Monocytes (%) (Auto) 6, Neutrophils # (Auto) 12.9H, Neutrophils % (Manual) 88, Neutrophils (%) (Auto) 91H, Platelet Count 237, Polychromasia SLIGHT, Potassium Level 4.4, Prothrombin Time 24.6H, Red Blood Count 3.41L, Red Cell Distribution Width 19.7H, Sodium Level 132L, Thyroid Stimulating Hormone (TSH) 2.39, Total Bilirubin 1.4H, Total Protein 6.6, White Blood Count 14.3H 08/04/16 19:24: Urine Bacteria NONE, Urine Bilirubin NEGATIVE, Urine Casts NONE, Urine Clarity CLEAR, Urine Color YELLOW, Urine Crystals NONE, Urine Culture Indicated NO, Urine Glucose (UA) 1+H, Urine Ketones NEGATIVE, Urine Leukocyte Esterase NEGATIVE, Urine Mucus NEGATIVE, Urine Nitrite NEGATIVE, Urine Protein NEGATIVE, Urine RBC NONE, Urine RBC (Auto) NEGATIVE, Urine Specific [place] 1.010L, Urine Squamous Epithelial Cells RARE, Urine Urobilinogen NORMAL, Urine WBC NONE, Urine pH 5 08/05/16 03:48: Alanine Aminotransferase (ALT/SGPT) 23, Albumin 3.2, Alkaline Phosphatase 87, Anion Gap 10, Aspartate Amino Transf (AST/SGOT) 17, B-Type Natriuretic Peptide 589.3H, BUN/Creatinine Ratio 18, Basophils # (Auto) 0.0, Basophils (%) (Auto) 0 , Blood Urea Nitrogen 28H, Calcium Level 8.0L, Carbon Dioxide Level 22, Chloride Level 99, Creatinine 1.55H, Eosinophils # (Auto) 0.0, Eosinophils (%) ( Auto) 0, Estimat Glomerular Filtration Rate 45, Glucose Level 530*H, Hematocrit 28L, Hemoglobin 8.9L, Lymphocytes # (Auto) 0.3L, Lymphocytes (%) (Auto) 2L, Mean Corpuscular Hemoglobin 29, Mean Corpuscular Hemoglobin Concent 31L, Mean Corpuscular Volume 91, Mean Platelet Volume 11.0H, Monocytes # (Auto) 0.2, Monocytes (%) (Auto) 2, Neutrophils # (Auto) 10.7H, Neutrophils (%) (Auto) 96H, Platelet Count 216, Potassium Level 4.2, Red Blood Count 3.10L, Red Cell Distribution Width 19.4H, Sodium Level 131L, Total Bilirubin 1.1H, Total Protein 6.1L, White Blood Count 11.1H, Magnesium Level 1.9, Phosphorus Level 4.0 08/05/16 09:31: Glucometer 431*H 08/05/16 12:00: Glucometer 388H 08/05/16 16:16: Glucometer 426*H Microbiology 08/04/16 Blood Culture - Preliminary, Resulted No growth 08/04/16 Gram Stain - Final, Resulted 08/04/16 Sputum Culture - Preliminary, Resulted Usual/normal amish isolated. A/P-Cardiology Assessment/Admission Diagnosis 1. Shortness of breath, 2. Coronary artery disease, 3. PAD, 4. Atrial fibrillation, 5. Diastolic heart failure, 6. Pneumonia, 7. COPD Plan Acute on chronic diastolic CHF. continue IV Lasix. Strict input and output, 1 L fluid restriction.Most recent 2-D echocardiogram in December 2014 revealed EF of 50 percent, diastolic dysfunction Permanent atrial fibrillation, rate is not well controlled. increase Cardizem dose to 10 mg per hour. Start home dose of Toprol. [id number] score is 5. Is on stroke prophylaxis with oral warfarin Coronary artery disease, history of 2.5x18 mm Henderson stent to the circumflex artery, 2 stents to the right coronary artery using Promus stent 3.0x15 mm and 3.5x15 mm done in 2010. Had a cardiac catheterization on April 07, 2016 showing moderate coronary artery disease, moderate in-stent restenosis in the circumflex artery, mild to moderate disease in the right coronary artery, treated conservatively. Peripheral arterial disease, successful PCI to chronic total occlusion of the L SFA on 04/07/16 Carotid artery stenosis-left moderate ICA stenosis, 40-59 percent, right mild ICA stenosis less than 40 percent per most recent carotid duplex done in March 2016 Chronic tobacco use - he quit 8 weeks ago. I congratulated him on smoking cessation. COPD managed by pcp Hypertension, well controlled on the current medications, continue to monitor blood pressure Hyperlipidemia Diabetes mellitus, managed by pcp Pulmonary hypertension secondary to COPD Hypothyroidism, followed and managed by pcp Thank you for your consultation. Please call me if you have any questions. Renata Hoang MD, FACP, FACC, FSCAI, FHRS, CCDS Interventional Cardiology Cardiac Electrophysiology Vascular Medicine and Endovascular Interventions Clinical Quality Measures DVT/VTE Risk/Contraindication: Risk Factor Score Per Nursin RFS Level Per Nursing on Admit: 4+=Very High Moses HOANG MD Aug 05, 2016 5:57 pm
[2016-08-05] MEDS: meTOproloL SUCCINATE 50 MG (TOPROL XL) TAB PO SCH (21:00)
[2016-08-05] MEDS: LEVOFLOXACIN 750 MG/D5W 150 ML PRE-MIX IV SCH (21:21)
[2016-08-06] VITALS (14 sets, daily range): BP systolic 91–141; BP diastolic 55–77
[2016-08-06] MEDS ORDERED: NORMAL SALINE (BAXTER MINI) 50 ML IV ONE (00:03)
[2016-08-06] MEDS ORDERED: CEFEPIME HCL 2 GM (MAXIPIME) VIAL ONE (00:03)
[2016-08-06] MEDS: CEFEPIME 2 GM/NS 50 ML IVPB IV SCH ×2 (00:16)
[2016-08-06] MEDS: inSUlin (REGULAR) HUMAN 1 UNIT/0.01 ML (CHARGE PER UNIT) SC SCH ×4 (00:39→20:27)
[2016-08-06] MEDS ORDERED: inSUlin REGULAR TPN/DRIP ONLY 250 UNITS in NORMAL SALINE 247.5 ML IV SCH (01:30)
[2016-08-06] MEDS ORDERED: NS (IVPB) 250 ML ONE (01:51)
[2016-08-06] MEDS ORDERED: inSUlin (REGULAR) HUMAN 1 UNIT/0.01 ML (CHARGE PER UNIT) ONE (01:52)
[2016-08-06] MEDS ORDERED: NS IV 1000 ML 1,000 ML IV SCH (02:00)
[2016-08-06] MEDS: methylPREDNISolone 40 MG/ML (Solu-MEDROL) VIAL IV SCH (02:31)
[2016-08-06] MEDS: RT-ALBUTEROL/IPRATROPIUM 3 ML (DUONEB) VIAL INH SCH ×6 (02:33→21:54)
[2016-08-06 04:24] LABS: BASOPHILS % (AUTO) 0 % (0-10); EOSINOPHILS % (AUTO) 0 % (0-10); LYMPHOCYTES # (AUTO) 0.3 X 10^3 (1.0-4.0); LYMPHOCYTES % (AUTO) 2 % (12-44); MEAN CORPUSCULAR HEMOGLOBIN 29 PG (25-34); MEAN CORPUSCULAR HGB CONC 31 G/DL (32-36); MEAN CORPUSCULAR VOLUME 92 FL (80-99); MEAN PLATELET VOLUME 10.7 FL (7.4-10.4); MONOCYTES # (AUTO) 0.3 X 10^3 (0.0-1.0); MONOCYTES % (AUTO) 2 % (0-12); NEUTROPHILS # (AUTO) 14.6 X 10^3 (1.8-7.8); NEUTROPHILS % (AUTO) 97 % (42-75); PLATELET COUNT 219 10^3/uL (130-400); RED BLOOD COUNT 2.96 10^6/uL (4.35-5.85); RED CELL DISTRIBUTION WIDTH 19.1 % (10.0-14.5); WHITE BLOOD COUNT 15.1 10^3/uL (4.3-11.0)
[2016-08-06 05:03] LABS: ALBUMIN 3.3 G/DL (3.2-4.5); BILIRUBIN,TOTAL 0.7 MG/DL (0.1-1.0); CALCIUM 7.9 MG/DL (8.5-10.1); CREATININE SERUM 1.36 MG/DL (0.60-1.30); MAGNESIUM 2.1 MG/DL (1.8-2.4); PHOSPHORUS 3.5 MG/DL (2.3-4.7); POTASSIUM 3.9 MMOL/L (3.6-5.0); TOTAL PROTEIN 6.1 G/DL (6.4-8.2)
[2016-08-06] MEDS ORDERED: TROUGH ORDER-PHARMACY XX ONE (07:00)
--- NOTE | 2016-08-06 07:00 | Pulmonary Progress Note ---
Subjective Subjective/Events-last exam Pt is doing better less SOB. now on insulin gtt. Exam Exam Vital Signs Date Time Temp Pulse Resp B/P Pulse Ox O2 Delivery O2 Flow Rate FiO2 08/06/16 05:00 100 11 103/62 100 High Flow NC 8.00 08/06/16 04:00 99 High Flow NC 8.00 08/06/16 04:00 96.7 72 20 125/72 99 High Flow NC 8.00 08/06/16 03:00 77 24 94/69 97 High Flow NC 8.00 08/06/16 02:33 97 Nasal Cannula 5.00 08/06/16 02:00 85 13 113/58 99 High Flow NC 8.00 08/06/16 01:00 80 21 100/58 98 High Flow NC 8.00 08/06/16 01:00 105 08/06/16 00:00 95 High Flow NC 8.00 08/06/16 00:00 96.2 84 20 91/60 98 High Flow NC 8.00 08/05/16 23:00 76 16 112/59 97 High Flow NC 8.00 08/05/16 22:26 97 Nasal Cannula 5.00 08/05/16 22:00 74 17 112/58 96 High Flow NC 8.00 08/05/16 21:00 75 15 91/55 94 High Flow NC 8.00 08/05/16 20:48 96.9 73 22 105/62 96 8.00 08/05/16 20:00 86 18 105/62 94 High Flow NC 8.00 08/05/16 20:00 95 High Flow NC 8.00 08/05/16 19:58 96.9 73 22 105/62 96 High Flow NC 8.00 08/05/16 19:00 105 19 114/77 97 High Flow NC 8.00 08/05/16 19:00 77 08/05/16 18:20 95 Nasal Cannula 5.00 08/05/16 18:00 88 23 97/72 99 High Flow NC 8.00 08/05/16 17:00 85 21 98/61 97 High Flow NC 8.00 08/05/16 16:00 97.9 08/05/16 16:00 96 High Flow NC 7.00 08/05/16 15:00 89 14 106/63 95 High Flow NC 8.00 08/05/16 14:09 97 High Flow N/C 5.00 08/05/16 14:00 87 16 108/71 99 High Flow NC 8.00 08/05/16 13:00 94 26 149/71 97 High Flow NC 8.00 08/05/16 13:00 106 08/05/16 12:13 96 High Flow NC 7.00 08/05/16 12:13 96.9 08/05/16 12:00 107 38 111/68 96 High Flow NC 8.00 08/05/16 11:00 96 22 118/57 96 High Flow NC 8.00 08/05/16 10:00 100 16 110/66 100 High Flow NC 8.00 08/05/16 09:57 97 High Flow N/C 5.00 08/05/16 09:00 101 24 130/44 94 High Flow NC 8.00 08/05/16 08:00 102 7 90/64 95 High Flow NC 8.00 08/05/16 08:00 96 High Flow N/C 8.00 08/05/16 08:00 96 High Flow NC 7.00 08/05/16 08:00 97.8 08/05/16 07:00 106 17 113/72 96 High Flow NC 8.00 08/05/16 07:00 105 I & O 08/06/16 07:00 Intake Total 3100 ml Output Total 3000 ml Balance 100 ml General Appearance: No Apparent Distress Chronically ill HEENT: PERRL/EOMI Normal ENT Inspection Neck: Normal Inspection Respiratory: Other (so than a few rales in the bases that clear with deep inspiration is clear although breath sounds are diminished posteriorly. Anteriorly no wheezing was noted an apparent significant improvement from last night on admission) Cardiovascular: No Gallop No Murmur Irregularly Irregular Capillary Refill: Greater Than 3 Seconds Extremity: Other (2+ brawny edema to the mid tibia are noted violaceous changes of venous insufficiency with scaling but no ulceration are noted bilaterally. Extremities are warm but unable to appreciate dorsalis pedis or posterior tibial pulses. No cyanosis is noted.) Neurologic/Psychiatric: Other (fatigue somnolent white male oriented 2 this is pretty much his baseline) Skin: Normal Color Warm/Dry Results Lab Laboratory Tests 08/04/16 18:15 08/05/16 03:48 08/06/16 03:50 Assessment/Plan Assessment/Plan Pneumonia with sepsis -Almanza culture -Change Abx to Levaquin only COPDAE with pulmonary HTN -SVNs Q4 - advair Hyperglycemia -D/C solumedrol -D/C insulin gtt Acute on chronic diastolic CHF last echo December 2014 showed EF of 50% -hep lock IVF -repeat echo -continue lasix Hx of Afib - not well controlled -currently on Cardizem gtt -cardiology consulted -PT has been on Coumadin therapy hx of SUNDAY-- pt states he has never had a CPAP machine -Pt will need PSG in lab as out patient. -I would not recommend stimulants loyd wit Afib. Need to get him a CPAP machine so he can lay in bed without obstructing and get proper sleep. Tobacco dependance Pt is ok to 4th floor with tele once off Cardizem gtt Clinical Quality Measures DVT/VTE Risk/Contraindication: Risk Factor Score Per Nursin RFS Level Per Nursing on Admit: 4+=Very High BASSAM MCKEON DO Aug 06, 2016 07:00
[2016-08-06] MEDS: RT-ADVAIR HFA 115/21 MCG PER PUFF IH SCH ×2 (07:04→19:01)
--- NOTE | 2016-08-06 07:05 | Diagnostic Imaging Report ---
INDICATION: Respiratory failure. Pneumonia. COMPARISON: 08/05/2016 FINDINGS: Single frontal radiographic view of the chest was obtained and again demonstrates cardiomegaly and pulmonary vascular congestion. Lungs continue to show diffuse interstitial opacities. Both hemidiaphragms remain obscured. There is no pneumothorax. Overall, aeration is stable compared to prior exam. IMPRESSION: 1. Stable exam of the chest showing cardiomegaly with sequela of CHF. 2. Bibasilar consolidations suspicious for effusions. Underlying bibasilar pneumonia or edema cannot be excluded. Dictated by: Dictated on workstation # [id number]
[2016-08-06] MEDS: warFARin 3 MG (COUMADIN) TAB PO SCH (08:34)
[2016-08-06] MEDS: FUROSEMIDE 40 MG/4 ML INJ (LASIX) IVP SCH (08:34)
[2016-08-06] MEDS: metFORMIN XR 500 MG (GLUCOPHAGE XR) TAB PO SCH ×2 (08:34→16:34)
[2016-08-06] MEDS: DILTIAZEM DRIP 100 MG in SODIUM CHLORIDE (ADD-VANTAGE) 100 ML IV SCH (08:35)
--- NOTE | 2016-08-06 09:02 | Cardiology Progress Note ---
Cardiology SOAP Progress Note Subjective: mild shortness of breath. Objective: I&O/Vital Signs Vital Sign - Last 12Hours 08/06/16 08/06/16 08/06/16 08/06/16 08:35 09:00 10:52 11:12 Temp 97.9 Pulse 96 98 Resp 9 B/P 124/35 101/55 Pulse Ox 91 91 O2 Delivery High Flow NC Nasal Cannula O2 Flow Rate 8.00 6.00 08/06/16 08/06/16 08/06/16 08/06/16 11:12 14:00 14:00 14:41 Temp 97.1 97.1 Pulse 116 91 Resp 21 21 B/P 141/72 141/72 Pulse Ox 99 91 91 O2 Delivery High Flow NC Nasal Cannula Nasal Cannula High Flow NC O2 Flow Rate 8.00 5.00 8.00 8.00 08/06/16 08/06/16 08/06/16 15:40 18:54 19:01 Temp 98.8 Pulse 118 Resp 22 B/P 128/77 Pulse Ox 92 95 O2 Delivery High Flow NC Nasal Cannula Nasal Cannula O2 Flow Rate 8.00 8.00 8.00 Intake and Output 08/05/16 23:59 Intake Total 2100 ml Output Total 1800 ml Balance 300 ml Weight (Pounds): 231 Weight (Ounces): 1.0 Weight (Calculated Kilograms): 104.752723 Constitutional: No appears stated age, No AAO x 3, No apparent distress, No PERRL, No well-developed, No well-nourished, No other Respiratory: chest expansion is symmetric chest is bilaterally symmetric crackles Cardiovascular: No regular rate-rhythm, irregularly irregularNo extra beats, No parasternal heave is noted, No JVD, No edema, No bradycardia, No tachycardia , No point of maximal impulse, No cardiac thrills are palpable, No S1 and S2, No gallop/S3, No gallop/S4, No diastolic murmur, No systolic murmur, No friction rub, No click, No other Gastrointestional: No tender, No soft, No round, No distended, No pulsatile mass, No organomegaly, No guarding, No rebound, No tenderness, No hernia, No mass, No audible bowel sounds, No abnormal bowel sounds, No abdominal bruits, No spleenomegaly, No other Extremities: No normal range of motion, No non-tender, No normal inspection, No pedal edema, No calf tenderness, No normal capillary refill, No pelvis stable , No calf tenderness, No inflammation, No pedal edema, No slow capillary refill , No swelling, No other, No abrasion, No clubbing, No cyanosis, No ecchymosis, No laceration, No no lower extremity edema bilateral, No significant edema, No tenderness, No wound Neurologic/Psychiatric: No coagulation operator II-XII nml as tested, No no motor/sensory deficits, No alert, No normal mood/affect, No oriented x 3, No abnormal cerebellar tests, No abnormal coagulation operator II-XII, No abnormal gait, No aphasia, No EOM palsy, No facial droop, No motor weakness, No sensory deficit, No depressed affect, No disoriented x 3, No other, No grossly intact, No power is 5/5 both on sides Skin: No normal color, No warm/dry, No cyanosis, No cool, No diaphoresis, No damp, No ecchymosis, No jaundice, No mottled, No pallor, No rash, No tattoos/ piercings, No ulcerations, No rash on exposed areas, No ulcerations on exposed areas, No other Results/Procedures: Labs Laboratory Tests 08/06/16 00:15: Glucometer 458*H 08/06/16 02:16: Glucometer 358H 08/06/16 03:13: Glucometer 298H 08/06/16 03:50: Alanine Aminotransferase (ALT/SGPT) 31, Albumin 3.3, Alkaline Phosphatase 86, Anion Gap 11, Aspartate Amino Transf (AST/SGOT) 24, BUN/Creatinine Ratio 23, Basophils # (Auto) 0.0, Basophils (%) (Auto) 0, Blood Urea Nitrogen 31H, Calcium Level 7.9L, Carbon Dioxide Level 20L, Chloride Level 105, Creatinine 1.36H, Eosinophils # (Auto) 0.0, Eosinophils (%) (Auto) 0, Estimat Glomerular Filtration Rate 52, Glucose Level 181H, Hematocrit 27L, Hemoglobin 8.5L, Lymphocytes # (Auto) 0.3L, Lymphocytes (%) (Auto) 2L, Magnesium Level 2.1, Mean Corpuscular Hemoglobin 29, Mean Corpuscular Hemoglobin Concent 31L, Mean Corpuscular Volume 92, Mean Platelet Volume 10.7H, Monocytes # (Auto) 0.3, Monocytes (%) (Auto) 2, Neutrophils # (Auto) 14.6H, Neutrophils (%) (Auto) 97H, Phosphorus Level 3.5, Platelet Count 219, Potassium Level 3.9, Red Blood Count 2.96L, Red Cell Distribution Width 19.1H, Sodium Level 136, Total Bilirubin 0.7 , Total Protein 6.1L, White Blood Count 15.1H 08/06/16 04:18: Glucometer 188H 08/06/16 05:25: Glucometer 116H 08/06/16 06:58: Vancomycin Level Trough 23.1H 08/06/16 11:07: Glucometer 345H 08/06/16 14:48: Glucometer 423*H 08/06/16 19:54: Glucometer 462*H Microbiology 08/04/16 Blood Culture - Preliminary, Resulted No growth 08/04/16 MRSA Screen - Final, Complete MRSA not isolated A/P: Assessment/Dx: Acute on chronic diastolic CHF, AF COPD Plan: Acute on chronic diastolic CHF. continue IV Lasix. Strict input and output, 1 L fluid restriction.Most recent 2-D echocardiogram in December 2014 revealed EF of 50 percent, diastolic dysfunction Permanent atrial fibrillation, rate is not well controlled. start PO cardizem and dc infusion. Start home dose of Toprol. [id number] score is 5. Is on stroke prophylaxis with oral warfarin Coronary artery disease, history of 2.5x18 mm [place] stent to the circumflex artery, 2 stents to the right coronary artery using Promus stent 3.0x15 mm and 3.5x15 mm done in 2010. Had a cardiac catheterization on April 07, 2016 showing moderate coronary artery disease, moderate in-stent restenosis in the circumflex artery, mild to moderate disease in the right coronary artery, treated conservatively. Peripheral arterial disease, successful PCI to chronic total occlusion of the L SFA on 04/07/16 Carotid artery stenosis-left moderate ICA stenosis, 40-59 percent, right mild ICA stenosis less than 40 percent per most recent carotid duplex done in March 2016 Chronic tobacco use - he quit 8 weeks ago. I congratulated him on smoking cessation. COPD managed by pcp Hypertension, well controlled on the current medications, continue to monitor blood pressure Hyperlipidemia Diabetes mellitus, managed by pcp Pulmonary hypertension secondary to COPD Hypothyroidism, followed and managed by pcp Thank you for your consultation. Please call me if you have any questions. Renata Hoang MD, FACP, FACC, FSCAI, FHRS, CCDS Interventional Cardiology Cardiac Electrophysiology Vascular Medicine and Endovascular Interventions Moses HOANG MD Aug 06, 2016 9:02 am ICA stenosis less than 40 percent per most recent carotid duplex done in March 2016 Chronic tobacco use - he quit 8 weeks ago. I congratulated him on smoking cessation. COPD managed by pcp Hypertension, well controlled on the current medications, continue to monitor blood pressure Hyperlipidemia Diabetes mellitus, managed by pcp Pulmonary hypertension secondary to COPD Hypothyroidism, followed and managed by pcp Thank you for your consultation. Please call me if you have any questions. Renata Hoang MD, FACP, FACC, FSCAI, FHRS, CCDS Interventional Cardiology Cardiac Electrophysiology Vascular Medicine and Endovascular Interventions Moses HOANG MD Aug 06, 2016 9:02 am
[2016-08-06] MEDS ORDERED: DILTIAZEM 180 MG (CARDIZEM CD) CAP PO ONE (09:19)
[2016-08-06] MEDS: DILTIAZEM 180 MG (CARDIZEM CD) CAP PO SCH (09:26)
--- NOTE | 2016-08-06 10:03 | Progress Note-Hospitalist ---
Subjective HPI/CC On Admission Kristal is a 70-year-old white male with end-stage COPD and secondary cor pulmonale who noted increased shortness of breath over really unknown period of time. He is a very poor historian. Family report that for the past several days minimal activity was causing desaturation at home despite turning his oxygen level up from 3-5 L. He denied increased swelling over baseline but despite using his nebulizer every 4 hours still wheezing significantly on presentation to the emergency room. There he had a questionable basilar infiltrate but definite evidence for increased pulmonary vascularity bilateral pleural effusions and early pulmonary edema. His chronic atrial fibrillation and under stress his heart rate goes up and so he was also in A. fib with RVR. He denied chills fever but has increasing cough nonproductive. Overnight this is improved receiving Lasix with significant urine output. 08/06/16 progress note: Patient reports feeling less short of breath is more alert this morning. He is asking about discharge. He reports mild cough nonproductive and is had no chills or fever. He denies chest pain Date Seen 08/06/16 Objective Exam Vital Signs Vital Sign - Last 12Hours 08/04/16 18:19 Temp 98.5 Pulse 133 Resp 26 B/P 135/89 Pulse Ox 91 O2 Delivery Nasal Cannula O2 Flow Rate 4 Capillary Refill : Greater Than 3 Seconds General Appearance: No Apparent Distress Chronically ill Respiratory: Chest Non Tender Lungs Clear Other (breast sounds diminished throughout posteriorly this patient's baseline no wheezing is noted) Cardiovascular: Irregularly Irregular (without murmur S3 or S4) Extremity: Pedal Edema (1-2+ bilaterally to the mid tibia little less than yesterday.) Results/Procedures Lab Laboratory Tests 08/06/16 03:50 Assessment/Plan Assessment and Plan Assess & Plan/Chief Complaint 1. Acute COPD exacerbation with cor pulmonale. 2. Acute on chronic diastolic heart failure secondary to number 1 and history of ischemic heart disease without evidence for acute coronary syndrome continue diuretic therapy 3. Type II diabetes mellitus aggravated by steroids. Methylprednisolone is been discontinued we'll DC insulin drip started by eICU last night and resume home oral therapy. Transfer to the floor is okay with me after the patient's Cardizem drip is discontinued. DEYA DENNEY MD Aug 06, 2016 10:03
--- NOTE | 2016-08-06 14:18 | Physician Query-General Query ---
Physician Query-General Query to Physician: For clarification: 1. Was acute on chronic respiratory failure with hypoxia ruled in or out? 2. Was sepsis ruled in or out after study? 3. If sepsis was the acute on chronic respiratory failure related to sepsis? 4. Was pneumonia documented by Dr. Verduzco ruled in or out? PHYSICIAN RESPONSE: Based on the clinical findings in the record, please respond to the query above on this document as an addendum. Possible, probable, or questionable diagnosis can be coded for INPATIENTS ONLY. Physician Response: Physician Response Would code acute on chronic respiratory failure due to pneumonia without sepsis as well as acute on chronic diastolic Chf. If you have questions please contact: [employer]:Navya Bowers CCS,CCDS Ext:[phone] Thank you for your time and cooperation. Clinical Senior Graduate Advisor/[employer] This is a permanent part of the medical record NAVYA BOWERS Aug 06, 2016 14:18 DEYA DENNEY MD Aug 13, 2016 11:45
[2016-08-06] MEDS: GLIMEPIRIDE 4 MG (AMARYL) TAB PO SCH (20:27)
[2016-08-06] MEDS: sitaGLIPtin 50 MG (JANUVIA) TAB PO SCH (20:27)
[2016-08-06] MEDS: LEVOTHYROXINE 150 MCG (LEVOTHROID) TAB PO SCH (20:27)
[2016-08-06] MEDS: meTOproloL SUCCINATE 50 MG (TOPROL XL) TAB PO SCH (20:28)
[2016-08-06] MEDS: LEVOFLOXACIN 750 MG/D5W 150 ML PRE-MIX IV SCH (20:30)
[2016-08-06] MEDS: HYDROcodone/APAP 10 MG/325 MG (LORTAB) TAB PO PRN (23:38)
[2016-08-07] VITALS: BP 106/65
[2016-08-07] MEDS: RT-ALBUTEROL/IPRATROPIUM 3 ML (DUONEB) VIAL INH SCH ×6 (01:56→22:18)
[2016-08-07 04:00] VITALS: BP 114/54
[2016-08-07 06:03] LABS: BASOPHILS % (AUTO) 0 % (0-10); EOSINOPHILS % (AUTO) 0 % (0-10); LYMPHOCYTES # (AUTO) 0.4 X 10^3 (1.0-4.0); LYMPHOCYTES % (AUTO) 2 % (12-44); MEAN CORPUSCULAR HEMOGLOBIN 29 PG (25-34); MEAN CORPUSCULAR HGB CONC 31 G/DL (32-36); MEAN CORPUSCULAR VOLUME 93 FL (80-99); MEAN PLATELET VOLUME 10.5 FL (7.4-10.4); MONOCYTES # (AUTO) 1.2 X 10^3 (0.0-1.0); MONOCYTES % (AUTO) 6 % (0-12); NEUTROPHILS # (AUTO) 17.2 X 10^3 (1.8-7.8); NEUTROPHILS % (AUTO) 92 % (42-75); PLATELET COUNT 261 10^3/uL (130-400); RED BLOOD COUNT 3.12 10^6/uL (4.35-5.85); RED CELL DISTRIBUTION WIDTH 19.3 % (10.0-14.5); WHITE BLOOD COUNT 18.7 10^3/uL (4.3-11.0)
[2016-08-07] MEDS: metFORMIN XR 500 MG (GLUCOPHAGE XR) TAB PO SCH ×2 (06:07→17:03)
[2016-08-07] MEDS: inSUlin (REGULAR) HUMAN 1 UNIT/0.01 ML (CHARGE PER UNIT) SC SCH ×4 (06:08→21:39)
[2016-08-07 06:28] LABS: ALBUMIN 3.4 G/DL (3.2-4.5); BILIRUBIN,TOTAL 0.6 MG/DL (0.1-1.0); CALCIUM 8.4 MG/DL (8.5-10.1); CREATININE SERUM 1.6 MG/DL (0.60-1.30); MAGNESIUM 2.3 MG/DL (1.8-2.4); PHOSPHORUS 3.7 MG/DL (2.3-4.7); POTASSIUM 4.3 MMOL/L (3.6-5.0); TOTAL PROTEIN 6.3 G/DL (6.4-8.2)
[2016-08-07] MEDS: RT-ADVAIR HFA 115/21 MCG PER PUFF IH SCH ×2 (07:24→18:57)
[2016-08-07 08:25] VITALS: BP 131/58
--- NOTE | 2016-08-07 09:38 | Diagnostic Imaging Report ---
EXAMINATION: Chest radiograph, portable AP view. DATE: August 07, 2016, at 0457 hours. INDICATION: 70-year-old male, respiratory failure. COMPARISON: August 06, 2016. FINDINGS: Stable overall appearance of the cardiomediastinal silhouette. There are aortic calcifications. There is no identified pneumothorax. There are bilateral interstitial opacities and alveolar opacities in the lung bases. There are likely bilateral pleural effusions. IMPRESSION: Unchanged bilateral predominantly interstitial opacities with bibasilar alveolar consolidation and probable bilateral pleural effusions. Dictated by: Dictated on workstation # [id number]
[2016-08-07] MEDS: FUROSEMIDE 40 MG/4 ML INJ (LASIX) IVP SCH (09:50)
[2016-08-07] MEDS: DILTIAZEM 180 MG (CARDIZEM CD) CAP PO SCH (09:50)
[2016-08-07] MEDS: HYDROcodone/APAP 10 MG/325 MG (LORTAB) TAB PO PRN (09:51)
[2016-08-07] MEDS: warFARin 3 MG (COUMADIN) TAB PO SCH (09:51)
[2016-08-07 12:20] VITALS: BP 115/57
--- NOTE | 2016-08-07 13:09 | Progress Note-Hospitalist ---
Progress Note HPI/CC on Admission Kristal is a 70-year-old white male with end-stage COPD and secondary cor pulmonale who noted increased shortness of breath over really unknown period of time. He is a very poor historian. Family report that for the past several days minimal activity was causing desaturation at home despite turning his oxygen level up from 3-5 L. He denied increased swelling over baseline but despite using his nebulizer every 4 hours still wheezing significantly on presentation to the emergency room. There he had a questionable basilar infiltrate but definite evidence for increased pulmonary vascularity bilateral pleural effusions and early pulmonary edema. His chronic atrial fibrillation and under stress his heart rate goes up and so he was also in A. fib with RVR. He denied chills fever but has increasing cough nonproductive. Overnight this is improved receiving Lasix with significant urine output. 08/06/16 progress note: Patient reports feeling less short of breath is more alert this morning. He is asking about discharge. He reports mild cough nonproductive and is had no chills or fever. He denies chest pain Progress Notes/Assess & Plan Date Seen 08/07/16 Admission Dx/Process Patient feels better but very constipated for the past 4 days so we need to resolve that before going home Patient has home oxygen at home set up already PCP had told me that he could go over the weekend and he was to tentatively think about that for tomorrow Reviewed labs creatinine 1.6 and the rest appear to be stable No fever vitals stable, pleasant, oriented 3, chronically ill Sitting in chair, irregular rhythm, clear to auscultation bilaterally but distant breath sounds Chronic lower extremity edema noted Laboratory Tests 08/07/16 05:15 Assessment: 1. Acute COPD exacerbation with cor pulmonale. 2. Acute on chronic diastolic heart failure secondary #1 and history of ischemic heart disease without evidence for acute coronary syndrome continue diuretic therapy 3. Type II diabetes mellitus aggravated by steroids. 4. Atrial fibrillation with rapid ventricular response requiring ICU admission transfer to floor yesterday 5. Constipation 6. Chronic renal insufficiency 7. Anemia of chronic disease and kidney disease Lactulose Monitor labs Maintain oxygen Nebs Monitor sugar Poor prognosis CHARLA NICOLE DO Aug 07, 2016 13:09
[2016-08-07] MEDS: LACTULOSE SYRUP 10GM/15ML (ENULOSE) 30ML UDC PO SCH ×2 (13:27→21:39)
[2016-08-07] MEDS: SENNA W/DOCUSATE (SENOKOT S) TABLET PO SCH ×2 (13:27→21:39)
--- NOTE | 2016-08-07 16:17 | Cardiology Progress Note ---
Cardiology SOAP Progress Note Subjective: no cardiac symptoms Objective: I&O/Vital Signs Vital Sign - Last 12Hours 08/07/16 08/07/16 08/07/16 08/07/16 07:21 07:21 08:25 09:00 Temp 98.6 Pulse 104 Resp 22 B/P 131/58 Pulse Ox 95 95 97 O2 Delivery Nasal Cannula High Flow NC Nasal Cannula O2 Flow Rate 7.00 8.00 8.00 08/07/16 08/07/16 08/07/16 08/07/16 11:02 12:20 13:00 14:49 Temp 98.2 Pulse 117 127 Resp 20 B/P 115/57 Pulse Ox 96 93 95 O2 Delivery Nasal Cannula High Flow NC High Flow N/C O2 Flow Rate 7.00 8.00 7.00 Intake and Output 08/07/16 00:00 Intake Total 620 ml Output Total 1350 ml Balance -730 ml Weight (Pounds): 243 Weight (Ounces): 0.0 Weight (Calculated Kilograms): 110.926805 Constitutional: No appears stated age, No AAO x 3, No apparent distress, No PERRL, No well-developed, No well-nourished, No other Respiratory: chest expansion is symmetric chest is bilaterally symmetric crackles Cardiovascular: No regular rate-rhythm, irregularly irregularNo extra beats, No parasternal heave is noted, No JVD, No edema, No bradycardia, No tachycardia , No point of maximal impulse, No cardiac thrills are palpable, No S1 and S2, No gallop/S3, No gallop/S4, No diastolic murmur, No systolic murmur, No friction rub, No click, No other Gastrointestional: No tender, No soft, No round, No distended, No pulsatile mass, No organomegaly, No guarding, No rebound, No tenderness, No hernia, No mass, No audible bowel sounds, No abnormal bowel sounds, No abdominal bruits, No spleenomegaly, No other Extremities: No normal range of motion, No non-tender, No normal inspection, No pedal edema, No calf tenderness, No normal capillary refill, No pelvis stable , No calf tenderness, No inflammation, No pedal edema, No slow capillary refill , No swelling, No other, No abrasion, No clubbing, No cyanosis, No ecchymosis, No laceration, No no lower extremity edema bilateral, No significant edema, No tenderness, No wound Neurologic/Psychiatric: No event coordinator marketing and sales II-XII nml as tested, No no motor/sensory deficits, No alert, No normal mood/affect, No oriented x 3, No abnormal cerebellar tests, No abnormal event coordinator marketing and sales II-XII, No abnormal gait, No aphasia, No EOM palsy, No facial droop, No motor weakness, No sensory deficit, No depressed affect, No disoriented x 3, No other, No grossly intact, No power is 5/5 both on sides Skin: No normal color, No warm/dry, No cyanosis, No cool, No diaphoresis, No damp, No ecchymosis, No jaundice, No mottled, No pallor, No rash, No tattoos/ piercings, No ulcerations, No rash on exposed areas, No ulcerations on exposed areas, No other Results/Procedures: Labs Laboratory Tests 08/06/16 19:54: Glucometer 462*H 08/06/16 22:45: Glucometer 458*H 08/07/16 05:15: Alanine Aminotransferase (ALT/SGPT) 41, Albumin 3.4, Alkaline Phosphatase 89, Anion Gap 9, Aspartate Amino Transf (AST/SGOT) 30, BUN/Creatinine Ratio 27, Basophils # (Auto) 0.0, Basophils (%) (Auto) 0, Blood Urea Nitrogen 43H, Calcium Level 8.4L, Carbon Dioxide Level 22, Chloride Level 104, Creatinine 1.60H, Eosinophils # (Auto) 0.0, Eosinophils (%) (Auto) 0, Estimat Glomerular Filtration Rate 43, Glucose Level 241H, Hematocrit 29L, Hemoglobin 9.0L, Lymphocytes # (Auto) 0.4L, Lymphocytes (%) (Auto) 2L, Magnesium Level 2.3, Mean Corpuscular Hemoglobin 29, Mean Corpuscular Hemoglobin Concent 31L, Mean Corpuscular Volume 93, Mean Platelet Volume 10.5H, Monocytes # (Auto) 1.2H, Monocytes (%) (Auto) 6, Neutrophils # (Auto) 17.2H, Neutrophils (%) (Auto) 92H, Phosphorus Level 3.7, Platelet Count 261, Potassium Level 4.3, Red Blood Count 3.12L, Red Cell Distribution Width 19.3H, Sodium Level 135, Total Bilirubin 0.6 , Total Protein 6.3L, White Blood Count 18.7H 08/07/16 05:47: Glucometer 240H 08/07/16 10:26: Glucometer 278H Microbiology 08/04/16 Blood Culture - Preliminary, Resulted No growth 08/04/16 MRSA Screen - Final, Complete MRSA not isolated A/P: Assessment/Dx: Acute on chronic diastolic CHF, AF COPD Plan: Acute on chronic diastolic CHF. continue Lasix. Strict input and output, 1 L fluid restriction.Most recent 2-D echocardiogram in December 2014 revealed EF of 50 percent, diastolic dysfunction Permanent atrial fibrillation, rate is not well controlled. increase dose of by mouth Cardizem. continue Toprol. [id number] score is 5. Is on stroke prophylaxis with oral warfarin Coronary artery disease, history of 2.5x18 mm [place] stent to the circumflex artery, 2 stents to the right coronary artery using Promus stent 3.0x15 mm and 3.5x15 mm done in 2010. Had a cardiac catheterization on April 07, 2016 showing moderate coronary artery disease, moderate in-stent restenosis in the circumflex artery, mild to moderate disease in the right coronary artery, treated conservatively. Peripheral arterial disease, successful PCI to chronic total occlusion of the L SFA on 04/07/16 Carotid artery stenosis-left moderate ICA stenosis, 40-59 percent, right mild ICA stenosis less than 40 percent per most recent carotid duplex done in March 2016 Chronic tobacco use - he quit 8 weeks ago. I congratulated him on smoking cessation. COPD managed by pcp Hypertension, well controlled on the current medications, continue to monitor blood pressure Hyperlipidemia Diabetes mellitus, managed by pcp Pulmonary hypertension secondary to COPD Hypothyroidism, followed and managed by pcp Moses CHIRINOS MD Aug 07, 2016 4:17 pm
[2016-08-07 16:46] VITALS: BP 108/56
[2016-08-07 20:29] VITALS: BP 131/63
[2016-08-07] MEDS: sitaGLIPtin 50 MG (JANUVIA) TAB PO SCH (21:39)
[2016-08-07] MEDS: LEVOTHYROXINE 150 MCG (LEVOTHROID) TAB PO SCH (21:39)
[2016-08-07] MEDS: GLIMEPIRIDE 4 MG (AMARYL) TAB PO SCH (21:39)
[2016-08-07] MEDS: meTOproloL SUCCINATE 50 MG (TOPROL XL) TAB PO SCH (21:40)
[2016-08-07] MEDS: LEVOFLOXACIN 750 MG/D5W 150 ML PRE-MIX IV SCH (21:40)
[2016-08-08] VITALS (7 sets, daily range): BP systolic 123–145; BP diastolic 57–71
[2016-08-08] MEDS: RT-ALBUTEROL/IPRATROPIUM 3 ML (DUONEB) VIAL INH SCH ×6 (02:02→21:15)
[2016-08-08 04:50] LABS: BASOPHILS % (AUTO) 0 % (0-10); EOSINOPHILS % (AUTO) 0 % (0-10); LYMPHOCYTES # (AUTO) 0.5 X 10^3 (1.0-4.0); LYMPHOCYTES % (AUTO) 4 % (12-44); MEAN CORPUSCULAR HEMOGLOBIN 29 PG (25-34); MEAN CORPUSCULAR HGB CONC 31 G/DL (32-36); MEAN CORPUSCULAR VOLUME 93 FL (80-99); MEAN PLATELET VOLUME 10.4 FL (7.4-10.4); MONOCYTES % (AUTO) 7 % (0-12); NEUTROPHILS # (AUTO) 11.7 X 10^3 (1.8-7.8); NEUTROPHILS % (AUTO) 89 % (42-75); PLATELET COUNT 269 10^3/uL (130-400); RED BLOOD COUNT 3.15 10^6/uL (4.35-5.85); RED CELL DISTRIBUTION WIDTH 19.3 % (10.0-14.5); WHITE BLOOD COUNT 13.1 10^3/uL (4.3-11.0)
[2016-08-08 05:18] LABS: ALBUMIN 3.4 G/DL (3.2-4.5); CALCIUM 8.3 MG/DL (8.5-10.1); CREATININE SERUM 1.46 MG/DL (0.60-1.30); MAGNESIUM 2.1 MG/DL (1.8-2.4); PHOSPHORUS 3.5 MG/DL (2.3-4.7); POTASSIUM 4.1 MMOL/L (3.6-5.0); TOTAL PROTEIN 6.1 G/DL (6.4-8.2)
[2016-08-08] MEDS: inSUlin (REGULAR) HUMAN 1 UNIT/0.01 ML (CHARGE PER UNIT) SC SCH ×4 (06:00→22:16)
[2016-08-08] MEDS: metFORMIN XR 500 MG (GLUCOPHAGE XR) TAB PO SCH ×2 (06:11→16:41)
--- NOTE | 2016-08-08 08:10 | Diagnostic Imaging Report ---
INDICATION: Renal failure. Portable chest 4:41 AM. There is pulmonary vascular congestion with interstitial edema. There are small effusions. IMPRESSION: Pulmonary venous hypertension versus uremia. Findings appear similar to the previous day. Dictated by: Dictated on workstation # [id number]
[2016-08-08] MEDS: LACTULOSE SYRUP 10GM/15ML (ENULOSE) 30ML UDC PO SCH ×2 (08:53→20:46)
[2016-08-08] MEDS: SENNA W/DOCUSATE (SENOKOT S) TABLET PO SCH ×3 (08:53→20:47)
[2016-08-08] MEDS: warFARin 3 MG (COUMADIN) TAB PO SCH (08:53)
[2016-08-08] MEDS: FUROSEMIDE 40 MG/4 ML INJ (LASIX) IVP SCH (08:53)
[2016-08-08] MEDS: DILTIAZEM 240 MG (CARDIZEM CD) CAP PO SCH ×2 (08:54→12:46)
[2016-08-08] MEDS ORDERED: DILTIAZEM 180 MG (CARDIZEM CD) CAP PO SCH (09:00)
[2016-08-08] MEDS: HYDROcodone/APAP 10 MG/325 MG (LORTAB) TAB PO PRN ×2 (10:27→20:47)
--- NOTE | 2016-08-08 13:39 | Progress Note-Hospitalist ---
Progress Note HPI/CC on Admission Kristal is a 70-year-old white male with end-stage COPD and secondary cor pulmonale who noted increased shortness of breath over really unknown period of time. He is a very poor historian. Family report that for the past several days minimal activity was causing desaturation at home despite turning his oxygen level up from 3-5 L. He denied increased swelling over baseline but despite using his nebulizer every 4 hours still wheezing significantly on presentation to the emergency room. There he had a questionable basilar infiltrate but definite evidence for increased pulmonary vascularity bilateral pleural effusions and early pulmonary edema. His chronic atrial fibrillation and under stress his heart rate goes up and so he was also in A. fib with RVR. He denied chills fever but has increasing cough nonproductive. Overnight this is improved receiving Lasix with significant urine output. 08/06/16 progress note: Patient reports feeling less short of breath is more alert this morning. He is asking about discharge. He reports mild cough nonproductive and is had no chills or fever. He denies chest pain Progress Notes/Assess & Plan Date Seen 08/08/16 Admission Dx/Process Patient did have a bowel movement so that issue is resolved now at the bedside Patient really wants to go home but is still requiring high flow oxygen of which at home the only have the capability of 4 L so will hold discharge since we cannot arrange that on a Tuesday and a . I was required to have an in-depth end-of-life conversation with the patient and his together and then outside the room because of his overall decline status and poor and low functioning ability prior to admission and having multiple admissions the last couple of months each resulting in a major decline in status. Although professional I had to be very clear with the outside the room when it appeared that he was in such a declined status that I was unsure that he would be able to comprehend any significant details I had state about his end-of-life status. The was very against hospice and informed me that they will be taking him home but she is very debilitated herself and requires a wheelchair so I'm unclear how that is actually going to be arranged upon discharge anyway. He slept in a chair last night and undoubtably experiencing CO2 retention in the position he was with his head down and he continues to be a DO NOT INTUBATE but full resuscitation which on my assessment today patient is no doubt hospice candidate and only has a few months may be less to live. I tried to be as supportive and empathetic as possible in talking to her and the patient but it appears that they have significant denial even after I stated that we likely would not be able to make anything better of his medical conditions she still stated that she didn't wanting to go home yet because if that was arranged today he would just be right back and admitted again but I don't think that that is beneficial for the patient to be readmitted over and over again like recently since he is end-of- life care in my medical opinion. I talked to the nurse who stated that he refused to take his Cardizem and his heart rate was elevated at that time so she encouraged him to rethink that but he reluctantly took his Coumadin and Lasix. I have no doubt that he is so debilitated that if I removed all supportive care and placed him on morphine for comfort care and kept him comfortable that he would undoubtedly pass quickly so I'm very concerned that he will be somewhat resuscitated which is not in his best interest but and able to explain this to his in any type of manner. No fever vitals stable, \oriented 3, chronically ill, sitting in chair, drowsy irregular rhythm, clear to auscultation bilaterally but distant breath sounds Chronic lower extremity edema noted Laboratory Tests 08/08/16 04:12 Assessment: 1. Acute COPD exacerbation with cor pulmonale. 2. Acute on chronic diastolic heart failure secondary #1 and history of ischemic heart disease without evidence for acute coronary syndrome continue diuretic therapy 3. Type II diabetes mellitus aggravated by steroids. 4. Atrial fibrillation with rapid ventricular response requiring ICU admission transfer to floor yesterday 5. Constipation 6. Chronic renal insufficiency 7. Anemia of chronic disease and kidney disease 8. end-of-life status in my medical opinion supportive care but prognosis is getting more poor as the days progress Palliative care consultation as needed We'll attempt to counseled the patient and his regarding end-of-life status more tomorrow but I believe that he will declined further as the hours progress Poor prognosis CHARLA NICOLE DO Aug 08, 2016 13:39
[2016-08-08] MEDS: RT-ADVAIR HFA 115/21 MCG PER PUFF IH SCH ×2 (15:13→18:27)
[2016-08-08] MEDS: LEVOTHYROXINE 150 MCG (LEVOTHROID) TAB PO SCH (20:46)
[2016-08-08] MEDS: GLIMEPIRIDE 4 MG (AMARYL) TAB PO SCH (20:46)
[2016-08-08] MEDS: sitaGLIPtin 50 MG (JANUVIA) TAB PO SCH (20:47)
[2016-08-08] MEDS: LEVOFLOXACIN 750 MG/D5W 150 ML PRE-MIX IV SCH (20:47)
[2016-08-08] MEDS: meTOproloL SUCCINATE 50 MG (TOPROL XL) TAB PO SCH (20:47)
[2016-08-09] MEDS: RT-ALBUTEROL/IPRATROPIUM 3 ML (DUONEB) VIAL INH SCH ×6 (02:16→23:07)
[2016-08-09 04:00] VITALS: BP 128/80
[2016-08-09 06:05] LABS: BASOPHILS % (AUTO) 0 % (0-10); EOSINOPHILS # (AUTO) 0.1 10^3/uL (0.0-0.3); EOSINOPHILS % (AUTO) 1 % (0-10); LYMPHOCYTES # (AUTO) 0.5 X 10^3 (1.0-4.0); LYMPHOCYTES % (AUTO) 5 % (12-44); MEAN CORPUSCULAR HEMOGLOBIN 29 PG (25-34); MEAN CORPUSCULAR HGB CONC 31 G/DL (32-36); MEAN CORPUSCULAR VOLUME 93 FL (80-99); MEAN PLATELET VOLUME 10.4 FL (7.4-10.4); MONOCYTES # (AUTO) 0.8 X 10^3 (0.0-1.0); MONOCYTES % (AUTO) 8 % (0-12); NEUTROPHILS # (AUTO) 8.1 X 10^3 (1.8-7.8); NEUTROPHILS % (AUTO) 86 % (42-75); PLATELET COUNT 276 10^3/uL (130-400); RED BLOOD COUNT 3.14 10^6/uL (4.35-5.85); RED CELL DISTRIBUTION WIDTH 19.4 % (10.0-14.5); WHITE BLOOD COUNT 9.4 10^3/uL (4.3-11.0)
[2016-08-09] MEDS: metFORMIN XR 500 MG (GLUCOPHAGE XR) TAB PO SCH ×2 (06:12→17:54)
[2016-08-09] MEDS: inSUlin (REGULAR) HUMAN 1 UNIT/0.01 ML (CHARGE PER UNIT) SC SCH ×4 (06:12→21:56)
[2016-08-09 06:32] LABS: ALBUMIN 3.2 G/DL (3.2-4.5); BILIRUBIN,TOTAL 0.9 MG/DL (0.1-1.0); CALCIUM 8.4 MG/DL (8.5-10.1); CREATININE SERUM 1.33 MG/DL (0.60-1.30); MAGNESIUM 2.3 MG/DL (1.8-2.4); PHOSPHORUS 3.6 MG/DL (2.3-4.7); POTASSIUM 4.3 MMOL/L (3.6-5.0); TOTAL PROTEIN 5.8 G/DL (6.4-8.2)
[2016-08-09] MEDS: RT-ADVAIR HFA 115/21 MCG PER PUFF IH SCH ×2 (07:11→18:39)
--- NOTE | 2016-08-09 08:12 | Diagnostic Imaging Report ---
INDICATION: Respiratory failure. Compared 06/08/2017. FINDINGS: Bilateral effusions greater left but decreased. Five-lobe interstitial opacities and mild central vascular congestion are unchanged. IMPRESSION: Increased pleural fluid volume. Vascular congestion unchanged. Five-lobe interstitial-type infiltrates unchanged. Dictated by: Dictated on workstation # [id number]
[2016-08-09 08:25] VITALS: BP 131/83
--- NOTE | 2016-08-09 08:37 | Pulmonary Progress Note ---
Subjective Subjective/Events-last exam No complications noted Exam Exam Vital Signs Date Time Temp Pulse Resp B/P Pulse Ox O2 Delivery O2 Flow Rate FiO2 08/09/16 07:14 93 High Flow N/C 8.00 08/09/16 07:11 93 High Flow N/C 8.00 08/09/16 04:00 97.1 95 20 128/80 Nasal Cannula 7.00 08/09/16 02:17 96 High Flow N/C 8.00 08/09/16 01:00 107 08/08/16 23:21 98.3 103 20 132/60 98 Nasal Cannula 7.00 08/08/16 22:04 108 21 96 50.00 08/08/16 21:17 High Flow N/C 8.00 08/08/16 21:00 Nasal Cannula 7.00 08/08/16 20:30 98.6 102 20 131/57 91 Nasal Cannula 7.00 08/08/16 19:48 92 08/08/16 18:33 High Flow N/C 8.00 08/08/16 18:27 94 High Flow N/C 8.00 08/08/16 16:00 97.6 112 16 142/60 97 Nasal Cannula 7.00 08/08/16 15:14 92 High Flow N/C 7.00 08/08/16 12:56 98 08/08/16 12:32 98.7 103 24 132/69 97 Nasal Cannula 7.00 08/08/16 09:33 91 High Flow N/C 8.00 08/08/16 09:00 Nasal Cannula 7.00 I & O 08/09/16 07:00 Intake Total 1180 ml Output Total 2850 ml Balance -1670 ml General Appearance: No Apparent Distress Chronically ill HEENT: PERRL/EOMI Normal ENT Inspection Neck: Normal Inspection Respiratory: Chest Non Tender Lungs Clear Other (breast sounds diminished throughout posteriorly this patient's baseline no wheezing is noted) Cardiovascular: Irregularly Irregular (without murmur S3 or S4) Capillary Refill: Greater Than 3 Seconds Gastrointestinal: non tender soft no organomegaly Extremity: Pedal Edema (1-2+ bilaterally to the mid tibia little less than yesterday.) Neurologic/Psychiatric: Other (fatigue somnolent white male oriented 2 this is pretty much his baseline) Skin: Normal Color Warm/Dry Results Lab Laboratory Tests 08/08/16 04:12 08/09/16 05:10 Assessment/Plan Assessment/Plan Pneumonia with sepsis - Levaquin COPDAE with pulmonary HTN -SVNs Q4 - advair Diastolic CHF -lasix -cardio following Hx of Afib - not well controlled -cardiology consulted -PT has been on Coumadin therapy hx of SUNDAY-- pt states he has never had a CPAP machine -Pt will need PSG in lab as out patient. -I would not recommend stimulants loyd wit Afib. Need to get him a CPAP machine so he can lay in bed without obstructing and get proper sleep. Tobacco dependance PT HAS PSG SCHEDULED ON TUE AT 8PM Clinical Quality Measures DVT/VTE Risk/Contraindication: Risk Factor Score Per Nursin RFS Level Per Nursing on Admit: 4+=Very High BASSAM MCKEON DO Aug 09, 2016 08:37 BASSAM MCKEON DO Aug 09, 2016 08:37
[2016-08-09] MEDS: LACTULOSE SYRUP 10GM/15ML (ENULOSE) 30ML UDC PO SCH ×2 (09:41→21:58)
[2016-08-09] MEDS: FUROSEMIDE 40 MG/4 ML INJ (LASIX) IVP SCH (09:41)
[2016-08-09] MEDS: SENNA W/DOCUSATE (SENOKOT S) TABLET PO SCH ×2 (09:41→21:57)
[2016-08-09] MEDS: DILTIAZEM 240 MG (CARDIZEM CD) CAP PO SCH (09:41)
--- NOTE | 2016-08-09 11:11 | Progress Note-Hospitalist ---
Subjective HPI/CC On Admission Kristal was found sleeping upright in his chair somnolent this morning. This is not unusual for him and he has been sleeping upright intermittently in his chair at night reporting that even the recliner is uncomfortable. There were conflicting stories about how long he was able to keep BiPAP on he does not recall claustrophobia his didn't think this was the case but nursing staff report he only wore BiPAP for about an hour and they ask about something to help him relax. He did receive morphine dose last night and they felt that it improved his breathing. The patient notes chest tightness and uncomfortable sensation after receiving Levaquin his cough is nonproductive mild when he is not having any chills or fever. Date Seen 08/09/16 Objective Exam Vital Signs Vital Sign - Last 12Hours 08/04/16 18:19 Temp 98.5 Pulse 133 Resp 26 B/P 135/89 Pulse Ox 91 O2 Delivery Nasal Cannula O2 Flow Rate 4 Capillary Refill : Greater Than 3 Seconds General Appearance: Chronically ill Mild Distress Respiratory: Chest Non Tender Other (faint expiratory wheeze on the left no rhonchi are appreciated occasional by basilar rales fine are noted there are markedly diminished breath sounds posteriorly. Anteriorly chest is clear there is short slight prolongation of the expiratory phase unchanged) Cardiovascular: Irregularly Irregular (heart rate in the 90s no murmur S3 or S4 appreciated.) Extremity: Other (he now has a small amount of weeping from the left leg chronic venous insufficiency changes are noted with violaceous color and dimpling of the skin there are some scabs and cross but no ulcerations are noted. Chronic venous insufficiency is keeping his legs from attaining a larger girth. This is worsens my evaluation on Tuesday) Neurologic/Psychiatric: Other (mildly somnolent but arousable and answers questions appropriately no agitation) Results/Procedures Lab Laboratory Tests 08/09/16 05:10 Assessment/Plan Assessment and Plan Assess & Plan/Chief Complaint 1. Acute COPD exacerbation with cor pulmonale. 2. Acute on chronic diastolic heart failure secondary to number 1 and history of ischemic heart disease without evidence for acute coronary syndrome continue diuretic therapy 3. Type II diabetes mellitus aggravated by steroids. 4. Likely sleep apnea aggravating number [address] Verduzco and staff he has been bumped up tubes obtain sleep study in the lab on Tuesday. We will likely need to keep him here hospitalized discharge him to the sleep lab as he represents high likelihood of early readmission especially if he has suspected significant sleep apnea before we can get him set up for home CPAP. Discussed the importance of using BiPAP at night we will try Xanax tonight and also is imperative that he sleep in bed with his legs propped up due to worsening 4+ pedal edema. This is a complex medical management case. DEYA DENNEY MD Aug 09, 2016 11:11
[2016-08-09 11:12] LABS: INR 2.7 (0.8-1.4); PROTHROMBIN TIME PATIENT 28.9 SEC (12.2-14.7)
[2016-08-09 12:00] VITALS: BP 127/78
--- NOTE | 2016-08-09 13:43 | Cardiology Progress Note ---
Cardiology SOAP Progress Note Subjective: drowsy Objective: I&O/Vital Signs Vital Sign - Last 12Hours 08/09/16 08/09/16 08/09/16 08/09/16 09:00 10:38 12:00 13:00 Temp 98.6 Pulse 111 103 Resp 16 B/P 127/78 Pulse Ox 92 93 O2 Delivery Nasal Cannula High Flow N/C Nasal Cannula O2 Flow Rate 7.00 8.00 7.00 08/09/16 08/09/16 08/09/16 08/09/16 14:25 16:05 17:10 18:39 Temp 98.4 Pulse 106 Resp 16 B/P 131/65 Pulse Ox 93 85 92 90 O2 Delivery High Flow N/C Nasal Cannula Vapotherm Vapotherm O2 Flow Rate 8.00 7.00 15.00 15.00 FiO2 50 60 08/09/16 18:49 Pulse Ox 90 O2 Delivery Vapotherm O2 Flow Rate 15.00 FiO2 60 Intake and Output 08/09/16 00:00 Intake Total 980 ml Output Total 1850 ml Balance -870 ml Weight (Pounds): 243 Weight (Ounces): 0.0 Weight (Calculated Kilograms): [id number] Constitutional: No appears stated age, No AAO x 3, No apparent distress, No PERRL, No well-developed, No well-nourished, No other Respiratory: chest expansion is symmetric chest is bilaterally symmetric crackles Cardiovascular: No regular rate-rhythm, irregularly irregularNo extra beats, No parasternal heave is noted, No JVD, No edema, No bradycardia, No tachycardia , No point of maximal impulse, No cardiac thrills are palpable, No S1 and S2, No gallop/S3, No gallop/S4, No diastolic murmur, No systolic murmur, No friction rub, No click, No other Gastrointestional: No tender, No soft, No round, No distended, No pulsatile mass, No organomegaly, No guarding, No rebound, No tenderness, No hernia, No mass, No audible bowel sounds, No abnormal bowel sounds, No abdominal bruits, No spleenomegaly, No other Extremities: No normal range of motion, No non-tender, No normal inspection, No pedal edema, No calf tenderness, No normal capillary refill, No pelvis stable , No calf tenderness, No inflammation, No pedal edema, No slow capillary refill , No swelling, No other, No abrasion, No clubbing, No cyanosis, No ecchymosis, No laceration, No no lower extremity edema bilateral, No significant edema, No tenderness, No wound Neurologic/Psychiatric: No cashier checker II-XII nml as tested, No no motor/sensory deficits, No alert, No normal mood/affect, No oriented x 3, No abnormal cerebellar tests, No abnormal cashier checker II-XII, No abnormal gait, No aphasia, No EOM palsy, No facial droop, No motor weakness, No sensory deficit, No depressed affect, No disoriented x 3, No other, No grossly intact, No power is 5/5 both on sides Skin: No normal color, No warm/dry, No cyanosis, No cool, No diaphoresis, No damp, No ecchymosis, No jaundice, No mottled, No pallor, No rash, No tattoos/ piercings, No ulcerations, No rash on exposed areas, No ulcerations on exposed areas, No other Results/Procedures: Labs Laboratory Tests 08/08/16 21:46: Glucometer 277H 08/09/16 05:10: Alanine Aminotransferase (ALT/SGPT) 32, Albumin 3.2, Alkaline Phosphatase 74, Anion Gap 7, Aspartate Amino Transf (AST/SGOT) 21, BUN/Creatinine Ratio 24, Basophils # (Auto) 0.0, Basophils (%) (Auto) 0, Blood Urea Nitrogen 32H, Calcium Level 8.4L, Carbon Dioxide Level 26, Chloride Level 106, Creatinine 1.33H, Eosinophils # (Auto) 0.1, Eosinophils (%) (Auto) 1, Estimat Glomerular Filtration Rate 53, Glucose Level 160H, Hematocrit 29L, Hemoglobin 9.0L, INR Comment 2.7H, Lymphocytes # (Auto) 0.5L, Lymphocytes (%) (Auto) 5L, Magnesium Level 2.3, Mean Corpuscular Hemoglobin 29, Mean Corpuscular Hemoglobin Concent 31L, Mean Corpuscular Volume 93, Mean Platelet Volume 10.4, Monocytes # (Auto) 0.8, Monocytes (%) (Auto) 8, Neutrophils # (Auto) 8.1H, Neutrophils (%) (Auto) 86H, Phosphorus Level 3.6, Platelet Count 276, Potassium Level 4.3, Prothrombin Time 28.9H, Red Blood Count 3.14L, Red Cell Distribution Width 19.4H, Sodium Level 139, Total Bilirubin 0.9, Total Protein 5.8L, White Blood Count 9.4 08/09/16 05:59: Glucometer 161H 08/09/16 11:49: Glucometer 245H 08/09/16 16:06: Glucometer 267H Microbiology 08/04/16 Blood Culture - Preliminary, Resulted No growth 08/04/16 MRSA Screen - Final, Complete MRSA not isolated A/P: Assessment/Dx: Acute on chronic diastolic CHF, AF COPD Plan: Shortness of breath is likely pulmonary. His EF is normal, he has been negative 4-5 liters since admission and BNP was mildly elevated. All suggest mild CHF. He is drowsy everytime i seem him, He may have hypercapnic respiratory failure with COPD. Acute on chronic diastolic CHF. Strict input and output, 1 L fluid restriction.Most recent 2-D echocardiogram in December 2014 revealed EF of 50 percent , diastolic dysfunction Permanent atrial fibrillation, rate is not well controlled. increase dose of by mouth Cardizem. continue Toprol. [id number] score is 5. Is on stroke prophylaxis with oral warfarin Coronary artery disease, history of 2.5x18 mm [place] stent to the circumflex artery, 2 stents to the right coronary artery using Promus stent 3.0x15 mm and 3.5x15 mm done in 2010. Had a cardiac catheterization on April 07, 2016 showing moderate coronary artery disease, moderate in-stent restenosis in the circumflex artery, mild to moderate disease in the right coronary artery, treated conservatively. Peripheral arterial disease, successful PCI to chronic total occlusion of the L SFA on 04/07/16 Carotid artery stenosis-left moderate ICA stenosis, 40-59 percent, right mild ICA stenosis less than 40 percent per most recent carotid duplex done in March 2016 Chronic tobacco use - he quit 8 weeks ago. I congratulated him on smoking cessation. COPD managed by pcp Hypertension, well controlled on the current medications, continue to monitor blood pressure Hyperlipidemia Diabetes mellitus, managed by pcp Pulmonary hypertension secondary to COPD Hypothyroidism, followed and managed by pcp Moses CHIRINOS MD Aug 09, 2016 1:43 pm
[2016-08-09] MEDS: warFARin 3 MG (COUMADIN) TAB PO SCH (14:58)
[2016-08-09 16:05] VITALS: BP 131/65
[2016-08-09] MEDS: HYDROcodone/APAP 10 MG/325 MG (LORTAB) TAB PO PRN (18:27)
[2016-08-09 20:48] VITALS: BP 133/65
[2016-08-09 21:55] VITALS: BP 136/70
[2016-08-09] MEDS: ALPRAZolam 0.5 MG (XANAX) TAB PO SCH (21:57)
[2016-08-09] MEDS: meTOproloL SUCCINATE 50 MG (TOPROL XL) TAB PO SCH (21:57)
[2016-08-09] MEDS: sitaGLIPtin 50 MG (JANUVIA) TAB PO SCH (21:57)
[2016-08-09] MEDS: LEVOTHYROXINE 150 MCG (LEVOTHROID) TAB PO SCH (21:57)
[2016-08-09] MEDS: GLIMEPIRIDE 4 MG (AMARYL) TAB PO SCH (21:57)
[2016-08-10] VITALS: BP 129/77
[2016-08-10] MEDS: HYDROcodone/APAP 10 MG/325 MG (LORTAB) TAB PO PRN (02:07)
[2016-08-10] MEDS: RT-ALBUTEROL/IPRATROPIUM 3 ML (DUONEB) VIAL INH SCH ×6 (02:14→22:37)
[2016-08-10 04:00] VITALS: BP 117/75
[2016-08-10] MEDS: RT-ADVAIR HFA 115/21 MCG PER PUFF IH SCH ×2 (06:47→18:36)
[2016-08-10] MEDS: metFORMIN XR 500 MG (GLUCOPHAGE XR) TAB PO SCH ×2 (06:50→17:23)
[2016-08-10] MEDS: inSUlin (REGULAR) HUMAN 1 UNIT/0.01 ML (CHARGE PER UNIT) SC SCH ×4 (06:50→23:18)
--- NOTE | 2016-08-10 07:47 | Pulmonary Progress Note ---
Subjective Subjective/Events-last exam NO complications noted. Exam Exam Vital Signs Date Time Temp Pulse Resp B/P Pulse Ox O2 Delivery O2 Flow Rate FiO2 08/10/16 06:52 High Flow N/C 7.00 08/10/16 04:02 92 17 93 50.00 08/10/16 02:14 96 20 93 50.00 08/10/16 00:39 98 21 94 50.00 08/10/16 00:00 97.0 86 19 129/77 97 NIV/Bilevel 08/09/16 23:07 97 19 94 50.00 08/09/16 21:55 90 20 136/70 08/09/16 21:00 Nasal Cannula 08/09/16 20:48 98.5 91 16 133/65 92 Nasal Cannula 7.00 08/09/16 18:49 90 Vapotherm 15.00 60 08/09/16 18:39 90 Vapotherm 15.00 60 08/09/16 17:10 92 Vapotherm 15.00 50 08/09/16 16:05 98.4 106 16 131/65 85 Nasal Cannula 7.00 08/09/16 14:25 93 High Flow N/C 8.00 08/09/16 13:00 103 08/09/16 12:00 98.6 111 16 127/78 93 Nasal Cannula 7.00 08/09/16 10:38 92 High Flow N/C 8.00 08/09/16 09:00 Nasal Cannula 7.00 08/09/16 08:25 98.7 96 18 131/83 95 Nasal Cannula 7.00 I & O 08/10/16 07:00 Intake Total 1125 ml Output Total 1320 ml Balance -195 ml General Appearance: Chronically ill Mild Distress HEENT: PERRL/EOMI Normal ENT Inspection Neck: Normal Inspection Respiratory: Chest Non Tender Other (faint expiratory wheeze on the left no rhonchi are appreciated occasional by basilar rales fine are noted there are markedly diminished breath sounds posteriorly. Anteriorly chest is clear there is short slight prolongation of the expiratory phase unchanged) Cardiovascular: Irregularly Irregular (heart rate in the 90s no murmur S3 or S4 appreciated.) Capillary Refill: Greater Than 3 Seconds Gastrointestinal: non tender soft no organomegaly Extremity: Other (he now has a small amount of weeping from the left leg chronic venous insufficiency changes are noted with violaceous color and dimpling of the skin there are some scabs and cross but no ulcerations are noted. Chronic venous insufficiency is keeping his legs from attaining a larger girth. This is worsens my evaluation on Tuesday) Neurologic/Psychiatric: Other (mildly somnolent but arousable and answers questions appropriately no agitation) Skin: Normal Color Warm/Dry Results Lab Laboratory Tests 08/09/16 05:10 Assessment/Plan Assessment/Plan Pneumonia with sepsis - Levaquin COPDAE with pulmonary HTN -SVNs Q4 - advair Diastolic CHF -lasix -cardio following Hx of Afib - not well controlled -cardiology consulted -PT has been on Coumadin therapy hx of SNUDAY-- pt states he has never had a CPAP machine -Pt will need PSG in lab as out patient. -Pt is scheduled for PSG tomorrow at 8pm after discharge Tobacco dependance Clinical Quality Measures DVT/VTE Risk/Contraindication: Risk Factor Score Per Nursin RFS Level Per Nursing on Admit: 4+=Very High BASSAM MCKEON DO Aug 10, 2016 07:47
[2016-08-10 08:00] VITALS: BP 135/62
[2016-08-10] MEDS: FUROSEMIDE 40 MG/4 ML INJ (LASIX) IVP SCH (08:43)
[2016-08-10] MEDS: warFARin 3 MG (COUMADIN) TAB PO SCH (08:44)
[2016-08-10] MEDS: SENNA W/DOCUSATE (SENOKOT S) TABLET PO SCH ×2 (08:44→20:19)
[2016-08-10] MEDS: LACTULOSE SYRUP 10GM/15ML (ENULOSE) 30ML UDC PO SCH ×2 (08:44→20:17)
[2016-08-10] MEDS: DILTIAZEM 240 MG (CARDIZEM CD) CAP PO SCH (08:47)
--- NOTE | 2016-08-10 11:44 | Progress Note-Hospitalist ---
Subjective HPI/CC On Admission Kristal was found sleeping upright in his chair somnolent this morning. 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 When he sits up with his feet on the floor symptoms improved.. . No chest tightness or discomfort was reported. Date Seen 08/10/16 Objective Exam Vital Signs Vital Sign - Last 12Hours 08/04/16 08/09/16 18:19 17:10 Temp 98.5 Pulse 133 Resp 26 B/P 135/89 Pulse Ox 91 O2 Delivery Nasal Cannula O2 Flow Rate 4 FiO2 50 Capillary Refill : Greater Than 3 Seconds General Appearance: No Apparent Distress Respiratory: Chest Non Tender Lungs Clear Normal Breath Sounds No Accessory Muscle Use No Respiratory Distress Other (The patient sleeping in the upright position there is no evidence for obstruction diminished breath sounds are noted posteriorly unchanged from baseline there is mild prolongation of expiratory phase.) Cardiovascular: No Edema No Gallop No JVD No Murmur Irregularly Irregular Comments Laboratory Tests 08/09/16 05:10 Assessment/Plan Assessment and Plan Assess & Plan/Chief Complaint 1. Acute COPD exacerbation with cor pulmonale. 2. Acute on chronic diastolic heart failure secondary to number 1 and history of ischemic heart disease without evidence for acute coronary syndrome continue diuretic therapy 3. Type II diabetes mellitus aggravated by steroids. 4. Likely sleep apnea aggravating number [address] Verduzco and staff he has been bumped up tubes obtain sleep study in the lab on Tuesday. We will likely need to keep him here hospitalized discharge him to the sleep lab as he represents high likelihood of early readmission especially if he has suspected significant sleep apnea before we can get him set up for home CPAP. Discussed the importance of using BiPAP at night 5. Nocturnal myoclonus will give 0.5 mg Mirapex tonight the patient has utilized this in the past without reported side effect. We'll plan discharge tomorrow evening with readmission to sleep lab. Discussed with RT attempting to decrease O2 levels to maintain saturations greater than 88 percent. DEYA DENNEY MD Aug 10, 2016 11:44
[2016-08-10] MEDS ORDERED: CATHETER FLUSH 10 ML SYR IV PRN (14:00)
[2016-08-10] MEDS: CATHETER FLUSH 10 ML SYR IV SCH ×2 (17:23→23:17)
[2016-08-10 20:00] VITALS: BP 118/71
[2016-08-10] MEDS: meTOproloL SUCCINATE 50 MG (TOPROL XL) TAB PO SCH (20:17)
[2016-08-10] MEDS: PRAMIPEXOLE 0.5 MG TAB (MIRAPEX) PO SCH (20:17)
[2016-08-10] MEDS: LEVOTHYROXINE 150 MCG (LEVOTHROID) TAB PO SCH (20:17)
[2016-08-10] MEDS: ALPRAZolam 0.5 MG (XANAX) TAB PO SCH (20:18)
[2016-08-10] MEDS: GLIMEPIRIDE 4 MG (AMARYL) TAB PO SCH (20:18)
[2016-08-10] MEDS: sitaGLIPtin 50 MG (JANUVIA) TAB PO SCH (20:33)
[2016-08-11 01:38] VITALS: BP 153/73
[2016-08-11] MEDS: RT-ALBUTEROL/IPRATROPIUM 3 ML (DUONEB) VIAL INH SCH ×6 (01:51→22:01)
[2016-08-11 06:05] VITALS: BP 139/68
[2016-08-11] MEDS: metFORMIN XR 500 MG (GLUCOPHAGE XR) TAB PO SCH ×2 (06:13→16:58)
[2016-08-11] MEDS: CATHETER FLUSH 10 ML SYR IV SCH ×3 (06:32→22:46)
[2016-08-11] MEDS: inSUlin (REGULAR) HUMAN 1 UNIT/0.01 ML (CHARGE PER UNIT) SC SCH ×4 (06:32→22:41)
[2016-08-11 07:36] VITALS: BP 136/64
[2016-08-11] MEDS ORDERED: UMEC1BLS IH (08:03)
--- NOTE | 2016-08-11 08:23 | Pulmonary Progress Note ---
Subjective Subjective/Events-last exam Pt is now requiring High flow oxygen Exam Exam Vital Signs Date Time Temp Pulse Resp B/P Pulse Ox O2 Delivery O2 Flow Rate FiO2 08/11/16 07:36 98.1 104 32 136/64 88 High Flow NC 60.00 20.00 08/11/16 07:25 99 Vapotherm 20.00 60 08/11/16 06:51 105 20 99 60.00 08/11/16 06:05 97.5 83 20 139/68 98 NIV/Bilevel 08/11/16 04:25 29 92 50.00 08/11/16 01:51 84 19 89 50.00 08/11/16 01:38 97.6 90 22 153/73 91 NIV/Bilevel 08/10/16 23:51 91 21 99 50.00 08/10/16 22:38 95 Vapotherm 20.00 60 08/10/16 21:00 Nasal Cannula 50.00 08/10/16 20:00 97.8 88 20 118/71 96 Nasal Cannula 08/10/16 18:43 Vapotherm 20.00 60 08/10/16 18:36 95 Vapotherm 20.00 60 08/10/16 16:09 91 Vapotherm 20.00 60 08/10/16 15:00 92 High Flow N/C 6.00 08/10/16 11:13 90 High Flow N/C 6.00 08/10/16 11:10 86 High Flow N/C 5.00 08/10/16 09:23 92 08/10/16 09:00 Nasal Cannula 7.00 I & O 08/11/16 07:00 Intake Total 410 ml Output Total 1770 ml Balance -1360 ml General Appearance: No Apparent Distress HEENT: PERRL/EOMI Normal ENT Inspection Neck: Normal Inspection Respiratory: Chest Non Tender Lungs Clear Normal Breath Sounds No Accessory Muscle Use No Respiratory Distress Other (The patient sleeping in the upright position there is no evidence for obstruction diminished breath sounds are noted posteriorly unchanged from baseline there is mild prolongation of expiratory phase.) Cardiovascular: No Edema No Gallop No JVD No Murmur Irregularly Irregular Capillary Refill: Greater Than 3 Seconds Gastrointestinal: non tender soft no organomegaly Extremity: Other (he now has a small amount of weeping from the left leg chronic venous insufficiency changes are noted with violaceous color and dimpling of the skin there are some scabs and cross but no ulcerations are noted. Chronic venous insufficiency is keeping his legs from attaining a larger girth. This is worsens my evaluation on Tuesday) Neurologic/Psychiatric: Other (mildly somnolent but arousable and answers questions appropriately no agitation) Skin: Normal Color Warm/Dry Assessment/Plan Assessment/Plan Pneumonia with sepsis - Levaquin -repeat labs COPDAE with pulmonary HTN -SVNs Q4 - advair Diastolic CHF -lasix -cardio following Hx of Afib - not well controlled -cardiology consulted -PT has been on Coumadin therapy hx of SUNDAY-- pt states he has never had a CPAP machine -Pt will need PSG in lab as out patient. -Pt is scheduled for PSG today at 8pm after discharge Tobacco dependance Clinical Quality Measures DVT/VTE Risk/Contraindication: Risk Factor Score Per Nursin RFS Level Per Nursing on Admit: 4+=Very High BASSAM MCKEON DO Aug 11, 2016 08:23
[2016-08-11] MEDS ORDERED: FUROSEMIDE 40 MG/4 ML INJ (LASIX) IVP ONE (08:30)
--- NOTE | 2016-08-11 08:36 | Cardiology Progress Note ---
Subjective Subjective/Events-last exam Patient sitting up in chair, eating breakfast. Continues to complain of dyspnea. Denies any CP or palpitations. Review of Systems General: No Night Sweats, No Fatigue, No Malaise HEENT: No Visual Changes, No Dysphasia, No Sore Throat Pulmonary: Dyspnea CoughNo Pleuritic Chest Pain Cardiovascular: : EdemaNo: Chest Pain, Orthopnea, Palpitations, Paroxysmal Noc. Dyspnea Gastrointestinal: No: Abdominal Pain, Nausea, Vomiting Genitourinary: No Dysuria, No Frequency Musculoskeletal: No: back pain, neck pain Neurological: No: Numbness, Weakness Objective-Cardiology Exam Last Set of Vital Signs Vital Signs 08/11/16 08/11/16 14:18 16:00 Temp 98.4 Pulse 96 Resp 22 B/P 132/64 Pulse Ox 92 O2 Delivery Nasal Cannula O2 Flow Rate 60.00 20.00 FiO2 60 Capillary Refill : Greater Than 3 Seconds I&O Intake and Output 08/10/16 23:59 Intake Total 370 ml Output Total 1270 ml Balance -900 ml Intake Oral 370 ml Output Urine Total 1270 ml # Voids 8 # Bowel Movements 1 General: Alert, Oriented X3 HEENT: Atraumatic, PERRLA Lungs: Other (diminished breath sounds) Heart: Other (irregularly irregular, slightly tachycardic) Abdomen: Soft, No Tenderness, No Hepatosplenomegaly Extremities: No Clubbing, Normal Pulses, Other (+1 edema BLE.) Skin: No Rashes, No Breakdown Neuro: Normal Speech, Cranial Nerves 3-12 NL Psych/Mental Status: Mental Status NL, Mood NL Results Lab Laboratory Tests 08/11/16 09:00 A/P-Cardiology Admission Diagnosis AE COPD Pneumonia Chronic afib Diastolic dysfunction Assessment/Plan Pneumonia/AE COPD- managed by Dr. Verduzco. Continue antibiotics Acute on chronic diastolic CHF. Strict input and output, 1 L fluid restriction.Most recent 2-D echocardiogram in December 2014 revealed EF of 50 percent , diastolic dysfunction. Continue to diurese. Permanent atrial fibrillation, HR in the 100's this morning. Continue Cardizem and Toprol XL and continue to monitor. [id number] score is 5. Is on stroke prophylaxis with oral warfarin. INR therapeutic. Coronary artery disease, history of 2.5x18 mm [place] stent to the circumflex artery, 2 stents to the right coronary artery using Promus stent 3.0x15 mm and 3.5x15 mm done in 2010. Had a cardiac catheterization on April 07, 2016 showing moderate coronary artery disease, moderate in-stent restenosis in the circumflex artery, mild to moderate disease in the right coronary artery, treated conservatively. Peripheral arterial disease, successful PCI to chronic total occlusion of the L SFA on 04/07/16. Carotid artery stenosis-left moderate ICA stenosis, 40-59 percent, right mild ICA stenosis less than 40 percent per most recent carotid duplex done in March 2016 Chronic tobacco use - he quit 8 weeks ago. Encouraged continuation of smoking cessation. COPD managed by PCP Hypertension, well controlled on the current medications, continue to monitor blood pressure Hyperlipidemia- continue to monitor. Diabetes mellitus, managed by PCP Pulmonary hypertension secondary to COPD Hypothyroidism, followed and managed by PCP Patient was seen and evaluated with Jessica, he is a 70-year-old gentleman admitted for shortness of breath and pneumonia with acute exacerbation of COPD. He has history of diastolic heart failure, ejection fraction 50 percent. On examination patient has bilateral rhonchi, heart is irregular. Known to have atrial fibrillation with controlled rate. Continue on antibiotic, continue to monitor intake and output closely, monitor electrolytes. Maintained on Coumadin to reduce the risk of stroke. No changes are recommended Clinical Quality Measures DVT/VTE Risk/Contraindication: Risk Factor Score Per Nursin RFS Level Per Nursing on Admit: 4+=Very High JESSICA MURDOCK Aug 11, 2016 8:36 am JAVI WALTER MD Aug 11, 2016 5:44 pm
[2016-08-11] MEDS: DILTIAZEM 240 MG (CARDIZEM CD) CAP PO SCH (08:54)
[2016-08-11] MEDS: warFARin 3 MG (COUMADIN) TAB PO SCH (08:54)
[2016-08-11] MEDS: FUROSEMIDE 40 MG/4 ML INJ (LASIX) IVP SCH (08:54)
[2016-08-11] MEDS: SENNA W/DOCUSATE (SENOKOT S) TABLET PO SCH ×2 (08:54→22:46)
[2016-08-11] MEDS: LACTULOSE SYRUP 10GM/15ML (ENULOSE) 30ML UDC PO SCH ×2 (08:54→22:39)
[2016-08-11 09:09] LABS: BASOPHILS % (AUTO) 0 % (0-10); EOSINOPHILS # (AUTO) 0.1 10^3/uL (0.0-0.3); EOSINOPHILS % (AUTO) 1 % (0-10); LYMPHOCYTES # (AUTO) 0.5 X 10^3 (1.0-4.0); LYMPHOCYTES % (AUTO) 5 % (12-44); MEAN CORPUSCULAR HEMOGLOBIN 29 PG (25-34); MEAN CORPUSCULAR HGB CONC 31 G/DL (32-36); MEAN CORPUSCULAR VOLUME 93 FL (80-99); MEAN PLATELET VOLUME 9.9 FL (7.4-10.4); MONOCYTES # (AUTO) 0.7 X 10^3 (0.0-1.0); MONOCYTES % (AUTO) 7 % (0-12); NEUTROPHILS # (AUTO) 9.4 X 10^3 (1.8-7.8); NEUTROPHILS % (AUTO) 87 % (42-75); PLATELET COUNT 303 10^3/uL (130-400); RED BLOOD COUNT 3.46 10^6/uL (4.35-5.85); RED CELL DISTRIBUTION WIDTH 19.3 % (10.0-14.5); WHITE BLOOD COUNT 10.7 10^3/uL (4.3-11.0)
[2016-08-11 09:42] LABS: ANION GAP 8 MMOL/L (5-14); BLOOD UREA NITROGEN 23 MG/DL (7-18); BUN/CREATININE RATIO 21; CARBON DIOXIDE 30 MMOL/L (21-32); CHLORIDE 104 MMOL/L (98-107); CREATININE SERUM 1.12 MG/DL (0.60-1.30); GFR ESTIMATED > 60; GLUCOSE 145 MG/DL (70-105); MAGNESIUM 2.3 MG/DL (1.8-2.4); PHOSPHORUS 3.5 MG/DL (2.3-4.7); POTASSIUM 3.8 MMOL/L (3.6-5.0); SODIUM 142 MMOL/L (135-145)
[2016-08-11 09:53] LABS: ANISOCYTOSIS SLIGHT; BAND NEUTROPHILS 1 %; BASOPHILS % (MANUAL) 0 %; EOSINOPHILS % (MANUAL) 1 %; LYMPHOCYTES % (MANUAL) 8 %; NEUTROPHILS % (MANUAL) 88 %; POIKILOCYTOSIS SLIGHT
[2016-08-11] MEDS: RT-ADVAIR HFA 115/21 MCG PER PUFF IH SCH ×2 (10:30→18:33)
[2016-08-11 12:00] VITALS: BP 144/81
[2016-08-11 16:00] VITALS: BP 132/64
[2016-08-11 19:30] VITALS: BP 119/79
[2016-08-11] MEDS: sitaGLIPtin 50 MG (JANUVIA) TAB PO SCH (22:39)
[2016-08-11] MEDS: PRAMIPEXOLE 0.5 MG TAB (MIRAPEX) PO SCH (22:40)
[2016-08-11] MEDS: GLIMEPIRIDE 4 MG (AMARYL) TAB PO SCH (22:40)
[2016-08-11] MEDS: meTOproloL SUCCINATE 50 MG (TOPROL XL) TAB PO SCH (22:40)
[2016-08-11] MEDS: LEVOTHYROXINE 150 MCG (LEVOTHROID) TAB PO SCH (22:40)
[2016-08-11] MEDS: ALPRAZolam 0.5 MG (XANAX) TAB PO SCH (22:40)
[2016-08-12 00:59] VITALS: BP 140/66
[2016-08-12] MEDS: RT-ALBUTEROL/IPRATROPIUM 3 ML (DUONEB) VIAL INH SCH ×6 (02:17→22:42)
[2016-08-12 04:52] VITALS: BP 128/62
[2016-08-12] MEDS: inSUlin (REGULAR) HUMAN 1 UNIT/0.01 ML (CHARGE PER UNIT) SC SCH ×4 (05:58→19:30)
[2016-08-12] MEDS: metFORMIN XR 500 MG (GLUCOPHAGE XR) TAB PO SCH ×2 (05:58→17:41)
[2016-08-12] MEDS: CATHETER FLUSH 10 ML SYR IV SCH ×3 (05:58→22:28)
[2016-08-12] MEDS: RT-ADVAIR HFA 115/21 MCG PER PUFF IH SCH ×2 (06:31→19:25)
[2016-08-12 06:48] LABS: BASOPHILS % (AUTO) 0 % (0-10); EOSINOPHILS # (AUTO) 0.1 10^3/uL (0.0-0.3); EOSINOPHILS % (AUTO) 1 % (0-10); LYMPHOCYTES # (AUTO) 0.6 X 10^3 (1.0-4.0); LYMPHOCYTES % (AUTO) 5 % (12-44); MEAN CORPUSCULAR HEMOGLOBIN 28 PG (25-34); MEAN CORPUSCULAR HGB CONC 30 G/DL (32-36); MEAN CORPUSCULAR VOLUME 93 FL (80-99); MEAN PLATELET VOLUME 10.5 FL (7.4-10.4); MONOCYTES # (AUTO) 0.9 X 10^3 (0.0-1.0); MONOCYTES % (AUTO) 8 % (0-12); NEUTROPHILS # (AUTO) 9.8 X 10^3 (1.8-7.8); NEUTROPHILS % (AUTO) 85 % (42-75); PLATELET COUNT 279 10^3/uL (130-400); RED BLOOD COUNT 3.19 10^6/uL (4.35-5.85); RED CELL DISTRIBUTION WIDTH 19.1 % (10.0-14.5); WHITE BLOOD COUNT 11.5 10^3/uL (4.3-11.0)
[2016-08-12 07:19] LABS: ANION GAP 9 MMOL/L (5-14); BLOOD UREA NITROGEN 23 MG/DL (7-18); BUN/CREATININE RATIO 21; CALCIUM 8.4 MG/DL (8.5-10.1); CARBON DIOXIDE 27 MMOL/L (21-32); CHLORIDE 105 MMOL/L (98-107); GFR ESTIMATED > 60; GLUCOSE 207 MG/DL (70-105); MAGNESIUM 2.2 MG/DL (1.8-2.4); POTASSIUM 4.1 MMOL/L (3.6-5.0); SODIUM 141 MMOL/L (135-145)
[2016-08-12 08:00] VITALS: BP 146/90
[2016-08-12] MEDS ORDERED: PHARMACY TO DOSE IV SCH (09:15)
--- NOTE | 2016-08-12 09:24 | Pulmonary Progress Note ---
Subjective Subjective/Events-last exam Pt's WBC is increasing and he is requiring high flow oxygen. Exam Exam Vital Signs Date Time Temp Pulse Resp B/P Pulse Ox O2 Delivery O2 Flow Rate FiO2 08/12/16 06:30 Vapotherm 20.00 60 08/12/16 04:52 97.6 101 24 128/62 92 60.00 20.00 08/12/16 02:17 93 Vapotherm 20.00 55 08/12/16 00:59 98.9 100 24 140/66 95 60.00 20.00 08/11/16 22:01 86 Vapotherm 20.00 55 08/11/16 19:30 98.5 94 30 119/79 93 Nasal Cannula 55.00 20.00 08/11/16 18:41 92 Vapotherm 20.00 55 08/11/16 18:33 95 Vapotherm 20.00 60 08/11/16 16:00 98.4 96 22 132/64 92 Nasal Cannula 60.00 20.00 08/11/16 14:18 97 Vapotherm 20.00 60 08/11/16 12:00 97.9 100 18 144/81 99 High Flow NC 60.00 20.00 08/11/16 10:33 Vapotherm 20.00 60 08/11/16 10:25 88 Vapotherm 15.00 50 I & O 08/12/16 07:00 Intake Total 1162 ml Output Total 2325 ml Balance -1163 ml General Appearance: No Apparent Distress HEENT: PERRL/EOMI Normal ENT Inspection Neck: Normal Inspection Respiratory: Chest Non Tender Lungs Clear Normal Breath Sounds No Accessory Muscle Use No Respiratory Distress Other (The patient sleeping in the upright position there is no evidence for obstruction diminished breath sounds are noted posteriorly unchanged from baseline there is mild prolongation of expiratory phase.) Cardiovascular: No Edema No Gallop No JVD No Murmur Irregularly Irregular Capillary Refill: Greater Than 3 Seconds Gastrointestinal: non tender soft no organomegaly Extremity: Other (he now has a small amount of weeping from the left leg chronic venous insufficiency changes are noted with violaceous color and dimpling of the skin there are some scabs and cross but no ulcerations are noted. Chronic venous insufficiency is keeping his legs from attaining a larger girth. This is worsens my evaluation on Tuesday) Neurologic/Psychiatric: Other (mildly somnolent but arousable and answers questions appropriately no agitation) Skin: Normal Color Warm/Dry Results Lab Laboratory Tests 08/11/16 09:00 08/12/16 05:21 Assessment/Plan Assessment/Plan Pneumonia with sepsis - Levaquin5/5-vano /5 -cefepime 02/11 -add vanco Zosyn -repeat labs and cultures COPDAE with pulmonary HTN -SVNs Q4 - advair Diastolic CHF -lasix -cardio following Hx of Afib - not well controlled -cardiology consulted -PT has been on Coumadin therapy hx of SUNDAY-- pt states he has never had a CPAP machine -Pt will need PSG in lab as out patient. -Pt is scheduled for PSG today at 8pm after discharge Tobacco dependance Clinical Quality Measures DVT/VTE Risk/Contraindication: Risk Factor Score Per Nursin RFS Level Per Nursing on Admit: 4+=Very High BASSAM MCKEON DO Aug 12, 2016 09:24
[2016-08-12] MEDS: LACTULOSE SYRUP 10GM/15ML (ENULOSE) 30ML UDC PO SCH ×2 (09:49→20:38)
[2016-08-12] MEDS: warFARin 3 MG (COUMADIN) TAB PO SCH (09:49)
[2016-08-12] MEDS: DILTIAZEM 240 MG (CARDIZEM CD) CAP PO SCH (09:50)
[2016-08-12] MEDS: SENNA W/DOCUSATE (SENOKOT S) TABLET PO SCH ×2 (09:50→20:39)
[2016-08-12] MEDS: FUROSEMIDE 40 MG/4 ML INJ (LASIX) IVP SCH ×2 (09:58→20:38)
[2016-08-12] MEDS ORDERED: PIPERACILLIN SODIUM/TAZOBACTAM 4.5 GM in NS (BAXTER MINI) 100 ML IV NR (10:00)
[2016-08-12] MEDS ORDERED: VANCOMYCIN 1,750 MG/NS 500 ML IVPB IV NR ×2 (10:30)
[2016-08-12 12:00] VITALS: BP 126/60
--- NOTE | 2016-08-12 13:20 | Cardiology Progress Note ---
Subjective Subjective/Events-last exam Patient is feeling better today. States dyspnea is somewhat improved. Denies any CP or palpitations. Review of Systems General: No Night Sweats, No Fatigue, No Malaise HEENT: No Visual Changes, No Dysphasia, No Sore Throat Pulmonary: Dyspnea Cough Cardiovascular: No: Chest Pain, Palpitations Gastrointestinal: No: Abdominal Pain, Nausea, Vomiting Genitourinary: No Dysuria, No Frequency Musculoskeletal: No: back pain, neck pain Neurological: No: Change in speech, Confusion, Numbness, Weakness Objective-Cardiology Exam Last Set of Vital Signs Vital Signs 08/12/16 08/12/16 08/12/16 06:30 08:00 10:32 Temp 97.4 Pulse 89 Resp 18 B/P 146/90 Pulse Ox 97 O2 Delivery Vapotherm O2 Flow Rate 20.00 FiO2 60 Capillary Refill : Greater Than 3 Seconds I&O Intake and Output 08/12/16 00:00 Intake Total 1162 ml Output Total 2025 ml Balance -863 ml Intake Oral 1162 ml Output Urine Total 2025 ml # Bowel Movements 1 General: Alert, Oriented X3 HEENT: Atraumatic, PERRLA Lungs: Other (diminished breath sounds) Heart: Other (irregularly irregular) Abdomen: Soft, No Tenderness, No Hepatosplenomegaly Extremities: No Clubbing, Normal Pulses, Other (trace edema BLE) Skin: No Rashes, No Breakdown Neuro: Normal Speech, Cranial Nerves 3-12 NL Psych/Mental Status: Mental Status NL, Mood NL Results Lab Laboratory Tests 08/12/16 05:21 A/P-Cardiology Admission Diagnosis AE COPD Pneumonia Chronic afib Diastolic dysfunction Assessment/Plan Pneumonia/AE COPD- managed by Dr. Verduzco. Continue antibiotics Acute on chronic diastolic CHF. Strict input and output, 1 L fluid restriction.Most recent 2-D echocardiogram in December 2014 revealed EF of 50 percent , diastolic dysfunction. Continue to diurese. Permanent atrial fibrillation, HR better controlled today. Continue Cardizem and Toprol XL and continue to monitor. [id number] score is 5. Is on stroke prophylaxis with oral warfarin. INR therapeutic. Continue to monitor. Coronary artery disease, history of 2.5x18 mm [place] stent to the circumflex artery, 2 stents to the right coronary artery using Promus stent 3.0x15 mm and 3.5x15 mm done in 2010. Had a cardiac catheterization on April 07, 2016 showing moderate coronary artery disease, moderate in-stent restenosis in the circumflex artery, mild to moderate disease in the right coronary artery, treated conservatively. Peripheral arterial disease, successful PCI to chronic total occlusion of the L SFA on 04/07/16. Carotid artery stenosis-left moderate ICA stenosis, 40-59 percent, right mild ICA stenosis less than 40 percent per most recent carotid duplex done in March 2016 Chronic tobacco use - he quit 8 weeks ago. Encouraged continuation of smoking cessation. COPD managed by PCP Hypertension, well controlled on the current medications, continue to monitor blood pressure Hyperlipidemia- continue to monitor. Diabetes mellitus, managed by PCP Pulmonary hypertension secondary to COPD Hypothyroidism, followed and managed by PCP Clinical Quality Measures DVT/VTE Risk/Contraindication: Risk Factor Score Per Nursin RFS Level Per Nursing on Admit: 4+=Very High RAVINDER MURDOCK Aug 12, 2016 13:20
[2016-08-12 13:28] LABS: BILIRUBIN,URINE NEGATIVE (NEGATIVE); KETONES,URINE NEGATIVE (NEGATIVE); LEUKOCYTE ESTERASE ,URINE NEGATIVE (NEGATIVE); NITRITE,URINE NEGATIVE (NEGATIVE); PH,URINE 6 (5-9); PROTEIN,URINE NEGATIVE (NEGATIVE); UROBILINOGEN,URINE NORMAL (NORMAL)
[2016-08-12 13:39] LABS: SQUAMOUS EPITHELIAL CELL,UR RARE /HPF; WBC,URINE RARE /HPF
[2016-08-12] MEDS: PIPERACILLIN SODIUM/TAZOBACTAM 4.5 GM in NORMAL SALINE (BAXTER MINI) 100 ML IV SCH (15:10)
[2016-08-12 16:00] VITALS: BP 118/61
--- NOTE | 2016-08-12 17:16 | Cardiology Progress Note ---
Subjective Subjective/Events-last exam Patient is sitting in a chair, reporting improvement, still having some dyspnea. Review of Systems General: No Chills, No Night Sweats, No Fatigue, No Malaise, No Appetite, No Other HEENT: No Head Aches, No Visual Changes, No Eye Pain, No Ear Pain, No Dysphasia , No Sinus Congestion, No Post Nasal Drip, No Sore Throat, No Other Pulmonary: DyspneaNo Cough, No Pleuritic Chest Pain, No Other Cardiovascular: No: Chest Pain, Edema, Lt Headedness, Orthopnea, Other, Palpitations, Paroxysmal Noc. Dyspnea Objective-Cardiology Exam Last Set of Vital Signs Vital Signs 08/12/16 08/12/16 12:00 14:43 Temp 97.0 Pulse 92 Resp 20 B/P 126/60 Pulse Ox 90 O2 Delivery Vapotherm O2 Flow Rate 20.00 FiO2 60 Capillary Refill : Greater Than 3 Seconds I&O Intake and Output 08/12/16 00:00 Intake Total 1162 ml Output Total 2025 ml Balance -863 ml Intake Oral 1162 ml Output Urine Total 2025 ml # Bowel Movements 1 General: Alert, Oriented X3 HEENT: Atraumatic, PERRLA Lungs: Other (diminished breath sounds) Heart: Other (irregularly irregular) Abdomen: Soft, No Tenderness, No Hepatosplenomegaly Extremities: No Clubbing, Normal Pulses, Other (trace edema BLE) Skin: No Rashes, No Breakdown Neuro: Normal Speech, Cranial Nerves 3-12 NL Psych/Mental Status: Mental Status NL, Mood NL Results Lab Laboratory Tests 08/12/16 05:21 A/P-Cardiology Admission Diagnosis AE COPD Pneumonia Chronic afib Diastolic dysfunction Assessment/Plan Pneumonia/AE COPD- managed by Dr. Verduzco. Continue antibiotics Acute on chronic diastolic CHF. Strict input and output, 1 L fluid restriction.Most recent 2-D echocardiogram in December 2014 revealed EF of 50 percent , diastolic dysfunction. Continue to diurese. Permanent atrial fibrillation, HR better controlled today. Continue Cardizem and Toprol XL and continue to monitor. [id number] score is 5. Is on stroke prophylaxis with oral warfarin. INR therapeutic. Continue to monitor. Coronary artery disease, history of 2.5x18 mm [place] stent to the circumflex artery, 2 stents to the right coronary artery using Promus stent 3.0x15 mm and 3.5x15 mm done in 2010. Had a cardiac catheterization on April 07, 2016 showing moderate coronary artery disease, moderate in-stent restenosis in the circumflex artery, mild to moderate disease in the right coronary artery, treated conservatively. Peripheral arterial disease, successful PCI to chronic total occlusion of the L SFA on 04/07/16. Carotid artery stenosis-left moderate ICA stenosis, 40-59 percent, right mild ICA stenosis less than 40 percent per most recent carotid duplex done in March 2016 Chronic tobacco use - he quit 8 weeks ago. Encouraged continuation of smoking cessation. COPD managed by PCP Hypertension, well controlled on the current medications, continue to monitor blood pressure Hyperlipidemia- continue to monitor. Diabetes mellitus, managed by PCP Pulmonary hypertension secondary to COPD Hypothyroidism, followed and managed by PCP Clinical Quality Measures DVT/VTE Risk/Contraindication: Risk Factor Score Per Nursin RFS Level Per Nursing on Admit: 4+=Very High JAVI WALTER MD Aug 12, 2016 17:16
[2016-08-12 19:15] VITALS: BP 109/60
[2016-08-12] MEDS: PRAMIPEXOLE 0.5 MG TAB (MIRAPEX) PO SCH (20:38)
[2016-08-12] MEDS: meTOproloL SUCCINATE 50 MG (TOPROL XL) TAB PO SCH (20:38)
[2016-08-12] MEDS: GLIMEPIRIDE 4 MG (AMARYL) TAB PO SCH (20:39)
[2016-08-12] MEDS: LEVOTHYROXINE 150 MCG (LEVOTHROID) TAB PO SCH (20:39)
[2016-08-12] MEDS: sitaGLIPtin 50 MG (JANUVIA) TAB PO SCH (20:39)
[2016-08-12] MEDS: ALPRAZolam 0.5 MG (XANAX) TAB PO SCH (20:39)
[2016-08-12] MEDS: VANCOMYCIN 1250 MG/NS 250 ML IVPB IV SCH ×2 (22:32)
[2016-08-13] VITALS: BP 110/59
[2016-08-13] MEDS: PIPERACILLIN SODIUM/TAZOBACTAM 4.5 GM in NORMAL SALINE (BAXTER MINI) 100 ML IV SCH ×3 (00:04→15:54)
[2016-08-13] MEDS: RT-ALBUTEROL/IPRATROPIUM 3 ML (DUONEB) VIAL INH SCH ×6 (02:28→21:36)
[2016-08-13 04:00] VITALS: BP 121/76
[2016-08-13 06:40] LABS: BASOPHILS % (AUTO) 0 % (0-10); EOSINOPHILS # (AUTO) 0.1 10^3/uL (0.0-0.3); EOSINOPHILS % (AUTO) 1 % (0-10); LYMPHOCYTES # (AUTO) 0.5 X 10^3 (1.0-4.0); LYMPHOCYTES % (AUTO) 5 % (12-44); MEAN CORPUSCULAR HEMOGLOBIN 28 PG (25-34); MEAN CORPUSCULAR HGB CONC 30 G/DL (32-36); MEAN CORPUSCULAR VOLUME 92 FL (80-99); MEAN PLATELET VOLUME 10.3 FL (7.4-10.4); MONOCYTES # (AUTO) 0.9 X 10^3 (0.0-1.0); MONOCYTES % (AUTO) 9 % (0-12); NEUTROPHILS # (AUTO) 8.9 X 10^3 (1.8-7.8); NEUTROPHILS % (AUTO) 85 % (42-75); PLATELET COUNT 271 10^3/uL (130-400); RED BLOOD COUNT 3.35 10^6/uL (4.35-5.85); RED CELL DISTRIBUTION WIDTH 19.3 % (10.0-14.5); WHITE BLOOD COUNT 10.5 10^3/uL (4.3-11.0)
[2016-08-13 06:47] LABS: INR 3.2 (0.8-1.4); PROTHROMBIN TIME PATIENT 32.4 SEC (12.2-14.7)
[2016-08-13] MEDS: inSUlin (REGULAR) HUMAN 1 UNIT/0.01 ML (CHARGE PER UNIT) SC SCH ×4 (06:47→21:26)
[2016-08-13] MEDS: metFORMIN XR 500 MG (GLUCOPHAGE XR) TAB PO SCH ×2 (06:47→16:15)
[2016-08-13] MEDS: CATHETER FLUSH 10 ML SYR IV SCH ×3 (06:47→21:38)
[2016-08-13 06:54] LABS: ANION GAP 9 MMOL/L (5-14); BLOOD UREA NITROGEN 18 MG/DL (7-18); BUN/CREATININE RATIO 16; CALCIUM 8.2 MG/DL (8.5-10.1); CARBON DIOXIDE 29 MMOL/L (21-32); CHLORIDE 102 MMOL/L (98-107); CREATININE SERUM 1.15 MG/DL (0.60-1.30); GFR ESTIMATED > 60; GLUCOSE 140 MG/DL (70-105); MAGNESIUM 1.9 MG/DL (1.8-2.4); SODIUM 140 MMOL/L (135-145)
[2016-08-13] MEDS: RT-ADVAIR HFA 115/21 MCG PER PUFF IH SCH ×2 (06:54→18:30)
[2016-08-13 08:00] VITALS: BP 119/55
[2016-08-13] MEDS ORDERED: TROUGH ORDER-PHARMACY XX NR (09:30)
--- NOTE | 2016-08-13 09:35 | Cardiology Progress Note ---
Subjective Subjective/Events-last exam Patient is in a chair, still having some cough and dyspnea, no chest pain Review of Systems General: No Chills, No Night Sweats, No Fatigue, No Malaise, No Appetite, No Other HEENT: No Head Aches, No Visual Changes, No Eye Pain, No Ear Pain, No Dysphasia , No Sinus Congestion, No Post Nasal Drip, No Sore Throat, No Other Pulmonary: Dyspnea CoughNo Pleuritic Chest Pain, No Other Cardiovascular: No: Chest Pain, Edema, Lt Headedness, Orthopnea, Other, Palpitations, Paroxysmal Noc. Dyspnea Objective-Cardiology Exam Last Set of Vital Signs Vital Signs 08/13/16 08/13/16 04:00 06:55 Temp 97.8 Pulse 90 Resp 32 B/P 121/76 Pulse Ox 96 O2 Delivery High Flow N/C O2 Flow Rate 20.00 FiO2 60 Capillary Refill : Greater Than 3 Seconds I&O Intake and Output 08/13/16 00:00 Intake Total 1837.5 ml Output Total 2975 ml Balance -1137.5 ml Intake Oral 1120 ml IV Total 717.5 ml Output Urine Total 2975 ml General: Alert, Oriented X3 HEENT: Atraumatic, PERRLA Lungs: Clear to Auscultation, Normal Air Movement Heart: Normal S1, Normal S2, Other (irregularly irregular) Abdomen: Soft, No Tenderness, No Hepatosplenomegaly Extremities: No Clubbing, Normal Pulses, Other (trace edema BLE) Skin: No Rashes, No Breakdown Neuro: Normal Speech, Cranial Nerves 3-12 NL Psych/Mental Status: Mental Status NL, Mood NL Results Lab Laboratory Tests 08/13/16 06:14 A/P-Cardiology Admission Diagnosis AE COPD Pneumonia Chronic afib Diastolic dysfunction Assessment/Plan Pneumonia/AE COPD, improving managed by primary care physician Acute on chronic diastolic CHF, better at this time, continue to monitor, add low dose lisinopril, monitor BP Permanent atrial fibrillation, HR better controlled today. Continue Cardizem and Toprol XL and continue to monitor. [id number] score is 5. Is on stroke prophylaxis with oral warfarin. INR therapeutic. Continue to monitor. Coronary artery disease, history of 2.5x18 mm [place] stent to the circumflex artery, 2 stents to the right coronary artery using Promus stent 3.0x15 mm and 3.5x15 mm done in 2010. Had a cardiac catheterization on April 07, 2016 showing moderate coronary artery disease, moderate in-stent restenosis in the circumflex artery, mild to moderate disease in the right coronary artery, treated conservatively. Peripheral arterial disease, successful PCI to chronic total occlusion of the L SFA on 04/07/16. Carotid artery stenosis-left moderate ICA stenosis, 40-59 percent, right mild ICA stenosis less than 40 percent per most recent carotid duplex done in March 2016 Chronic tobacco use - he quit 8 weeks ago. Encouraged continuation of smoking cessation. COPD managed by PCP Hypertension, well controlled on the current medications, continue to monitor blood pressure Hyperlipidemia- continue to monitor. Diabetes mellitus, managed by PCP Pulmonary hypertension secondary to COPD Hypothyroidism, followed and managed by PCP Clinical Quality Measures DVT/VTE Risk/Contraindication: Risk Factor Score Per Nursin RFS Level Per Nursing on Admit: 4+=Very High JAVI WALTER MD Aug 13, 2016 09:35
[2016-08-13] MEDS ORDERED: lisINopril 5 MG (PRINIVIL) TABLET PO NR (09:42)
[2016-08-13] MEDS: LACTULOSE SYRUP 10GM/15ML (ENULOSE) 30ML UDC PO SCH ×2 (09:50→21:26)
[2016-08-13] MEDS: SENNA W/DOCUSATE (SENOKOT S) TABLET PO SCH ×2 (09:50→21:27)
[2016-08-13] MEDS: HYDROcodone/APAP 10 MG/325 MG (LORTAB) TAB PO PRN (09:51)
[2016-08-13] MEDS: FUROSEMIDE 40 MG/4 ML INJ (LASIX) IVP SCH ×2 (09:51→21:26)
[2016-08-13] MEDS: DILTIAZEM 240 MG (CARDIZEM CD) CAP PO SCH (09:51)
[2016-08-13] MEDS: warFARin 3 MG (COUMADIN) TAB PO SCH (10:13)
--- NOTE | 2016-08-13 10:27 | Discharge Summary-Hospitalist ---
Diagnosis/Chief Complaint Date of Admission Aug 04, 2016 at 20:31 Date of Discharge Discharge Date: Admission Diagnosis Patient did have a bowel movement so that issue is resolved now at the bedside Patient really wants to go home but is still requiring high flow oxygen of which at home the only have the capability of 4 L so will hold discharge since we cannot arrange that on a Tuesday and a . I was required to have an in-depth end-of-life conversation with the patient and his together and then outside the room because of his overall decline status and poor and low functioning ability prior to admission and having multiple admissions the last couple of months each resulting in a major decline in status. Although professional I had to be very clear with the outside the room when it appeared that he was in such a declined status that I was unsure that he would be able to comprehend any significant details I had state about his end-of-life status. The was very against hospice and informed me that they will be taking him home but she is very debilitated herself and requires a wheelchair so I'm unclear how that is actually going to be arranged upon discharge anyway. He slept in a chair last night and undoubtably experiencing CO2 retention in the position he was with his head down and he continues to be a DO NOT INTUBATE but full resuscitation which on my assessment today patient is no doubt hospice candidate and only has a few months may be less to live. I tried to be as supportive and empathetic as possible in talking to her and the patient but it appears that they have significant denial even after I stated that we likely would not be able to make anything better of his medical conditions she still stated that she didn't wanting to go home yet because if that was arranged today he would just be right back and admitted again but I don't think that that is beneficial for the patient to be readmitted over and over again like recently since he is end-of- life care in my medical opinion. I talked to the nurse who stated that he refused to take his Cardizem and his heart rate was elevated at that time so she encouraged him to rethink that but he reluctantly took his Coumadin and Lasix. I have no doubt that he is so debilitated that if I removed all supportive care and placed him on morphine for comfort care and kept him comfortable that he would undoubtedly pass quickly so I'm very concerned that he will be somewhat resuscitated which is not in his best interest but and able to explain this to his in any type of manner. No fever vitals stable, \oriented 3, chronically ill, sitting in chair, drowsy irregular rhythm, clear to auscultation bilaterally but distant breath sounds Chronic lower extremity edema noted Laboratory Tests 08/08/16 04:12 Assessment: 1. Acute COPD exacerbation with cor pulmonale. 2. Acute on chronic diastolic heart failure secondary #1 and history of ischemic heart disease without evidence for acute coronary syndrome continue diuretic therapy 3. Type II diabetes mellitus aggravated by steroids. 4. Atrial fibrillation with rapid ventricular response requiring ICU admission transfer to floor yesterday 5. Constipation 6. Chronic renal insufficiency 7. Anemia of chronic disease and kidney disease 8. end-of-life status in my medical opinion supportive care but prognosis is getting more poor as the days progress Palliative care consultation as needed We'll attempt to counseled the patient and his regarding end-of-life status more tomorrow but I believe that he will declined further as the hours progress Poor prognosis Reason Hospital Visit/Course Kristal was found sleeping upright in his chair somnolent this morning. 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 When he sits up with his feet on the floor symptoms improved.. . No chest tightness or discomfort was reported. Notes from 08/13/16: FÉLIX Review: Pt's daughter is supposed to meet with Cori this afternoon at 3pm, but FÉLIX will attempt to speed this process up. FÉLIX has asked Dr. Verduzco to contact Cori. Scribed by Diego Odom under the direct supervision of Dr. Nicole. Please see discharge summary per Dr. Garcia the patient's primary care provider that this was an extensive lengthy hospital course that ultimately has left the patient deemed end-stage and a hospice in [place] and supporting him in the last stages of his life and everything that we can do for the patient has been done and will step back into the supportive role because prognosis is so very poor. Discharge Summary Discharge Physical Examination Allergies: Coded Allergies: No Known Drug Allergies (Unverified , 07/05/16) Vitals & I&Os Vital Signs Date Time Temp Pulse Resp B/P Pulse Ox O2 Delivery O2 Flow Rate FiO2 08/13/16 10:35 93 High Flow N/C 20.00 60 08/13/16 08:00 97.1 110 28 119/55 Hospital Course Labs (last 24 hrs) Laboratory Tests 08/12/16 14:55: Glucometer 214H 08/12/16 19:59: Glucometer 265H 08/13/16 06:14: Anion Gap 9, BUN/Creatinine Ratio 16, Basophils # (Auto) 0.0, Basophils (%) ( Auto) 0, Blood Urea Nitrogen 18, Calcium Level 8.2L, Carbon Dioxide Level 29, Chloride Level 102, Creatinine 1.15, Eosinophils # (Auto) 0.1, Eosinophils (%) ( Auto) 1, Estimat Glomerular Filtration Rate > 60, Glucose Level 140H, Hematocrit 31L, Hemoglobin 9.3L, INR Comment 3.2H, Lymphocytes # (Auto) 0.5L, Lymphocytes (%) (Auto) 5L, Magnesium Level 1.9, Mean Corpuscular Hemoglobin 28, Mean Corpuscular Hemoglobin Concent 30L, Mean Corpuscular Volume 92, Mean Platelet Volume 10.3, Monocytes # (Auto) 0.9, Monocytes (%) (Auto) 9, Neutrophils # (Auto) 8.9H, Neutrophils (%) (Auto) 85H, Phosphorus Level 3.5, Platelet Count 271, Potassium Level 4.0, Prothrombin Time 32.4H, Red Blood Count 3.35L, Red Cell Distribution Width 19.3H, Sodium Level 140, White Blood Count 10.5 08/13/16 06:38: Glucometer 140H 08/13/16 09:25: Vancomycin Level Trough 16.7 08/13/16 10:20: Glucometer 273H Microbiology 08/04/16 Blood Culture - Final, Complete No growth 08/04/16 MRSA Screen - Final, Complete MRSA not isolated Pending Labs Laboratory Tests 08/13/16 06:14: Anion Gap 9, BUN/Creatinine Ratio 16, Basophils # (Auto) 0.0, Basophils (%) ( Auto) 0, Blood Urea Nitrogen 18, Calcium Level 8.2, Carbon Dioxide Level 29, Chloride Level 102, Creatinine 1.15, Eosinophils # (Auto) 0.1, Eosinophils (%) ( Auto) 1, Estimat Glomerular Filtration Rate > 60, Glucose Level 140, Hematocrit 31, Hemoglobin 9.3, INR Comment 3.2, Lymphocytes # (Auto) 0.5, Lymphocytes (%) ( Auto) 5, Magnesium Level 1.9, Mean Corpuscular Hemoglobin 28, Mean Corpuscular Hemoglobin Concent 30, Mean Corpuscular Volume 92, Mean Platelet Volume 10.3, Monocytes # (Auto) 0.9, Monocytes (%) (Auto) 9, Neutrophils # (Auto) 8.9, Neutrophils (%) (Auto) 85, Phosphorus Level 3.5, Platelet Count 271, Potassium Level 4.0, Prothrombin Time 32.4, Red Blood Count 3.35, Red Cell Distribution Width 19.3, Sodium Level 140, White Blood Count 10.5 08/13/16 06:38: Glucometer 140 08/13/16 09:25: Vancomycin Level Trough 16.7 08/13/16 10:20: Glucometer 273 Discharge Home Medications: Active Scripts Active Lorazepam Intensol (Lorazepam) 2 Mg/1 Ml Oral.conc 2 Mg PO Q4H Morphine Sulfate Concentrate 20mg/ml (Morphine Sulfate) 100 Mg/5 Ml Solution 5 Mg PO Q2H PRN Reported Afrin (Oxymetazoline HCl) 15 Ml Mist 1 [place] NS DAILY PRN PRN Saline Nasal Mist (Sodium Chloride) 126 Ml Mist 1 [place] NS DAILY PRN PRN Diltiazem 24Hr ER (Diltiazem HCl) 180 Mg Cap.er.24h 180 Mg PO DAILY Metformin HCl ER (Metformin HCl) 500 Mg Tab.er.24h 500 Mg PO BID Warfarin Sodium 3 Mg Tablet 3 Mg PO DAILY Trazodone HCl 50 Mg Tablet 50 Mg PO HS PRN Hydrocodon-Acetaminophn 10-325 (Hydrocodone/Acetaminophen) 1 Each Tablet 1 Tab PO Q6H PRN Atorvastatin Calcium 80 Mg Tablet 40 Mg PO HS TAKES 1/2 OF A (80 MG) TABLET Klor-Con M20 (Potassium Chloride) 20 Meq Tab.er.prt 20 Meq PO BID Levothyroxine Sodium 150 Mcg Tablet 150 Mcg PO HS Pramipexole Dihydrochloride (Pramipexole Di-HCl) 1.5 Mg Tablet 1.5 Mg PO HS Furosemide 40 Mg Tablet 80 Mg PO DAILY TAKES 2 (40 MG) TABLETS Pantoprazole Sodium 40 Mg Tablet.dr 40 Mg PO HS Fish Oil 1,200 mg Softgel ([place]-3 Fatty Acids/Fish Oil) 1 Each Capsule 1,200 Mg PO BID Glimepiride 4 Mg Tablet 4 Mg PO HS Metoprolol Succinate 50 Mg Tab.er.24h 50 Mg PO HS Lisinopril 20 Mg Tablet 20 Mg PO DAILY LAST FILLED 05/10/16 #30 Januvia (Sitagliptin Phosphate) 100 Mg Tablet 100 Mg PO HS Calcium 600 + Vit D Tablet (Calcium Carbonate/Vitamin D3) 1 Each Tablet 1 Tab PO BID Instructions to patient/family Please see electonic discharge instructions given to patient. Clinical Quality Measures DVT/VTE Risk/Contraindication: Risk Factor Score Per Nursin RFS Level Per Nursing on Admit: 4+=Very High CHARLA NICOLE DO Aug 13, 2016 10:27 CHARLA NICOLE DO Aug 13, 2016 10:27
[2016-08-13] MEDS: VANCOMYCIN 1250 MG/NS 250 ML IVPB IV SCH ×4 (11:22→22:53)
[2016-08-13] MEDS ORDERED: MORP100S3 PO (11:23)
[2016-08-13] MEDS ORDERED: LORA2ORA PO (11:23)
--- NOTE | 2016-08-13 12:03 | Discharge Summary-Hospitalist ---
Diagnosis/Chief Complaint Date of Admission Aug 04, 2016 at 20:31 Date of Discharge Discharge Date: Admission Diagnosis Patient did have a bowel movement so that issue is resolved now at the bedside Patient really wants to go home but is still requiring high flow oxygen of which at home the only have the capability of 4 L so will hold discharge since we cannot arrange that on a Tuesday and a . I was required to have an in-depth end-of-life conversation with the patient and his together and then outside the room because of his overall decline status and poor and low functioning ability prior to admission and having multiple admissions the last couple of months each resulting in a major decline in status. Although professional I had to be very clear with the outside the room when it appeared that he was in such a declined status that I was unsure that he would be able to comprehend any significant details I had state about his end-of-life status. The was very against hospice and informed me that they will be taking him home but she is very debilitated herself and requires a wheelchair so I'm unclear how that is actually going to be arranged upon discharge anyway. He slept in a chair last night and undoubtably experiencing CO2 retention in the position he was with his head down and he continues to be a DO NOT INTUBATE but full resuscitation which on my assessment today patient is no doubt hospice candidate and only has a few months may be less to live. I tried to be as supportive and empathetic as possible in talking to her and the patient but it appears that they have significant denial even after I stated that we likely would not be able to make anything better of his medical conditions she still stated that she didn't wanting to go home yet because if that was arranged today he would just be right back and admitted again but I don't think that that is beneficial for the patient to be readmitted over and over again like recently since he is end-of- life care in my medical opinion. I talked to the nurse who stated that he refused to take his Cardizem and his heart rate was elevated at that time so she encouraged him to rethink that but he reluctantly took his Coumadin and Lasix. I have no doubt that he is so debilitated that if I removed all supportive care and placed him on morphine for comfort care and kept him comfortable that he would undoubtedly pass quickly so I'm very concerned that he will be somewhat resuscitated which is not in his best interest but and able to explain this to his in any type of manner. No fever vitals stable, \oriented 3, chronically ill, sitting in chair, drowsy irregular rhythm, clear to auscultation bilaterally but distant breath sounds Chronic lower extremity edema noted Laboratory Tests 08/08/16 04:12 Assessment: 1. Acute COPD exacerbation with cor pulmonale. 2. Acute on chronic diastolic heart failure secondary #1 and history of ischemic heart disease without evidence for acute coronary syndrome continue diuretic therapy 3. Type II diabetes mellitus aggravated by steroids. 4. Atrial fibrillation with rapid ventricular response requiring ICU admission transfer to floor yesterday 5. Constipation 6. Chronic renal insufficiency 7. Anemia of chronic disease and kidney disease 8. end-of-life status in my medical opinion supportive care but prognosis is getting more poor as the days progress Palliative care consultation as needed We'll attempt to counseled the patient and his regarding end-of-life status more tomorrow but I believe that he will declined further as the hours progress Poor prognosis Discharge Diagnosis 1. Acute COPD exacerbation with cor pulmonale. 2. Acute on chronic diastolic heart failure secondary to number 1 and history of ischemic heart disease without evidence for acute coronary syndrome continue diuretic therapy 3. Type II diabetes mellitus aggravated by steroids. 4. Likely sleep apnea aggravating number [address] Verduzco and staff he has been bumped up tubes obtain sleep study in the lab on Tuesday. We will likely need to keep him here hospitalized discharge him to the sleep lab as he represents high likelihood of early readmission especially if he has suspected significant sleep apnea before we can get him set up for home CPAP. Discussed the importance of using BiPAP at night 5. Nocturnal myoclonus will give 0.5 mg Mirapex tonight the patient has utilized this in the past without reported side effect. We'll plan discharge tomorrow evening with readmission to sleep lab. Discussed with RT attempting to decrease O2 levels to maintain saturations greater than 88 percent. 6. Right lower lobe pneumonia also exacerbating COPD with cor pulmonale. 7. Acute on chronic respiratory failure secondary to number 6 and number 2 Reason Hospital Visit/Course Lorna is a frail 70-year-old white male with multiple medical comorbidities including COPD with cor pulmonale and chronic fibrillation. The discharge 30 days ago after admission for shortness of breath failure to thrive and 8 fibrillation with RVR. He became progressively more short of breath presented emergency room where was again noted that he was in A. fib with RVR with diffuse congestion. This A. fib and RVR us felt to be due to respiratory distress with aggravating factors including acute on chronic diastolic heart failure. He did have a right lower lobe small infiltrate without purulent sputum production raising the possibility of atypical pneumonia. Dr. Verduzco was consult did broad-spectrum antibiotics were initiated as well as IV diuretic therapy and intensification of rate control therapy in form of diltiazem and metoprolol per Dr. Hoang. His condition improved little over his hospital stay likely due to progressing cor pulmonale. Had a long discussion with his on multiple occasions as well as the patient about the fact that major problem was his underlying severe COPD with cor pulmonale progressing. Because the class action lawsuit that his former place of employment has been involved in they were concerned about mesothelioma. He has no x-ray findings to suggest this however he remain too critically ill to undergo even bronchoscopy with alone open lung biopsy. Discussed the fact that a diagnosis like this is unlikely underlying malignancy such as bronchoalveolar carcinoma was no differential as well but he is past the point of any blood tolerate any form of treatment which would not be curative. Ultimately they did agree on hospice services. The patient was strongly in favor of this and a tick family members little longer to get on board. He just wants to go home so that he can be with his dogs with emphasis on comfort care. Hospice will be talking with him later today with a goal of discharge after that. I went through his medication list simplify things he will also require reduction in Coumadin and I discussed stopping it when he loses his appetite. His INR was 3.2 so we will for now decrease him to 3 mg daily from 4 mg. His hospital course was complicated by significant nocturnal myoclonus the did respond Mirapex which she will continue at home. Discharge Summary Discharge Physical Examination Allergies: Coded Allergies: No Known Drug Allergies (Unverified , 07/05/16) Vitals & I&Os Vital Signs Date Time Temp Pulse Resp B/P Pulse Ox O2 Delivery O2 Flow Rate FiO2 08/13/16 10:35 93 High Flow N/C 20.00 60 08/13/16 08:00 97.1 110 28 119/55 Hospital Course Labs (last 24 hrs) Laboratory Tests 08/12/16 14:55: Glucometer 214H 08/12/16 19:59: Glucometer 265H 08/13/16 06:14: Anion Gap 9, BUN/Creatinine Ratio 16, Basophils # (Auto) 0.0, Basophils (%) ( Auto) 0, Blood Urea Nitrogen 18, Calcium Level 8.2L, Carbon Dioxide Level 29, Chloride Level 102, Creatinine 1.15, Eosinophils # (Auto) 0.1, Eosinophils (%) ( Auto) 1, Estimat Glomerular Filtration Rate > 60, Glucose Level 140H, Hematocrit 31L, Hemoglobin 9.3L, INR Comment 3.2H, Lymphocytes # (Auto) 0.5L, Lymphocytes (%) (Auto) 5L, Magnesium Level 1.9, Mean Corpuscular Hemoglobin 28, Mean Corpuscular Hemoglobin Concent 30L, Mean Corpuscular Volume 92, Mean Platelet Volume 10.3, Monocytes # (Auto) 0.9, Monocytes (%) (Auto) 9, Neutrophils # (Auto) 8.9H, Neutrophils (%) (Auto) 85H, Phosphorus Level 3.5, Platelet Count 271, Potassium Level 4.0, Prothrombin Time 32.4H, Red Blood Count 3.35L, Red Cell Distribution Width 19.3H, Sodium Level 140, White Blood Count 10.5 08/13/16 06:38: Glucometer 140H 08/13/16 09:25: Vancomycin Level Trough 16.7 08/13/16 10:20: Glucometer 273H Microbiology 08/04/16 Blood Culture - Final, Complete No growth 08/04/16 MRSA Screen - Final, Complete MRSA not isolated Pending Labs Laboratory Tests 08/13/16 06:14: Anion Gap 9, BUN/Creatinine Ratio 16, Basophils # (Auto) 0.0, Basophils (%) ( Auto) 0, Blood Urea Nitrogen 18, Calcium Level 8.2, Carbon Dioxide Level 29, Chloride Level 102, Creatinine 1.15, Eosinophils # (Auto) 0.1, Eosinophils (%) ( Auto) 1, Estimat Glomerular Filtration Rate > 60, Glucose Level 140, Hematocrit 31, Hemoglobin 9.3, INR Comment 3.2, Lymphocytes # (Auto) 0.5, Lymphocytes (%) ( Auto) 5, Magnesium Level 1.9, Mean Corpuscular Hemoglobin 28, Mean Corpuscular Hemoglobin Concent 30, Mean Corpuscular Volume 92, Mean Platelet Volume 10.3, Monocytes # (Auto) 0.9, Monocytes (%) (Auto) 9, Neutrophils # (Auto) 8.9, Neutrophils (%) (Auto) 85, Phosphorus Level 3.5, Platelet Count 271, Potassium Level 4.0, Prothrombin Time 32.4, Red Blood Count 3.35, Red Cell Distribution Width 19.3, Sodium Level 140, White Blood Count 10.5 08/13/16 06:38: Glucometer 140 08/13/16 09:25: Vancomycin Level Trough 16.7 08/13/16 10:20: Glucometer 273 Discharge Home Medications: Active Scripts Active Lorazepam Intensol (Lorazepam) 2 Mg/1 Ml Oral.conc 2 Mg PO Q4H Morphine Sulfate Concentrate 20mg/ml (Morphine Sulfate) 100 Mg/5 Ml Solution 5 Mg PO Q2H PRN Reported Afrin (Oxymetazoline HCl) 15 Ml Mist 1 [place] NS DAILY PRN PRN Saline Nasal Mist (Sodium Chloride) 126 Ml Mist 1 [place] NS DAILY PRN PRN Diltiazem 24Hr ER (Diltiazem HCl) 180 Mg Cap.er.24h 180 Mg PO DAILY Metformin HCl ER (Metformin HCl) 500 Mg Tab.er.24h 500 Mg PO BID Warfarin Sodium 3 Mg Tablet 3 Mg PO DAILY Trazodone HCl 50 Mg Tablet 50 Mg PO HS PRN Hydrocodon-Acetaminophn 10-325 (Hydrocodone/Acetaminophen) 1 Each Tablet 1 Tab PO Q6H PRN Atorvastatin Calcium 80 Mg Tablet 40 Mg PO HS TAKES 1/2 OF A (80 MG) TABLET Klor-Con M20 (Potassium Chloride) 20 Meq Tab.er.prt 20 Meq PO BID Levothyroxine Sodium 150 Mcg Tablet 150 Mcg PO HS Pramipexole Dihydrochloride (Pramipexole Di-HCl) 1.5 Mg Tablet 1.5 Mg PO HS Furosemide 40 Mg Tablet 80 Mg PO DAILY TAKES 2 (40 MG) TABLETS Pantoprazole Sodium 40 Mg Tablet.dr 40 Mg PO HS Fish Oil 1,200 mg Softgel ([place]-3 Fatty Acids/Fish Oil) 1 Each Capsule 1,200 Mg PO BID Glimepiride 4 Mg Tablet 4 Mg PO HS Metoprolol Succinate 50 Mg Tab.er.24h 50 Mg PO HS Lisinopril 20 Mg Tablet 20 Mg PO DAILY LAST FILLED 05/10/16 #30 Januvia (Sitagliptin Phosphate) 100 Mg Tablet 100 Mg PO HS Calcium 600 + Vit D Tablet (Calcium Carbonate/Vitamin D3) 1 Each Tablet 1 Tab PO BID Instructions to patient/family Please see electonic discharge instructions given to patient. Clinical Quality Measures DVT/VTE Risk/Contraindication: Risk Factor Score Per Nursin RFS Level Per Nursing on Admit: 4+=Very High Copy Copies To 1: DEYA DENNEY MD, MARK D MD Aug 13, 2016 12:03
[2016-08-13 12:45] VITALS: BP 138/66
[2016-08-13 16:00] VITALS: BP 122/60
[2016-08-13] MEDS ORDERED: WARF3TAB6 PO (16:19)
[2016-08-13 20:00] VITALS: BP_SYST 122; BP_SYST 138; BP_DIAS 67; BP_DIAS 79
[2016-08-13] MEDS: ALPRAZolam 0.5 MG (XANAX) TAB PO SCH (21:27)
[2016-08-13] MEDS: meTOproloL SUCCINATE 50 MG (TOPROL XL) TAB PO SCH (21:27)
[2016-08-13] MEDS: sitaGLIPtin 50 MG (JANUVIA) TAB PO SCH (21:27)
[2016-08-13] MEDS: LEVOTHYROXINE 150 MCG (LEVOTHROID) TAB PO SCH (21:27)
[2016-08-13] MEDS: GLIMEPIRIDE 4 MG (AMARYL) TAB PO SCH (21:27)
[2016-08-13] MEDS: PRAMIPEXOLE 0.5 MG TAB (MIRAPEX) PO SCH (21:36)
[2016-08-14] VITALS: BP 137/90
[2016-08-14] MEDS: PIPERACILLIN SODIUM/TAZOBACTAM 4.5 GM in NORMAL SALINE (BAXTER MINI) 100 ML IV SCH ×3 (00:42→17:28)
[2016-08-14] MEDS: RT-ALBUTEROL/IPRATROPIUM 3 ML (DUONEB) VIAL INH SCH ×5 (02:05→18:37)
[2016-08-14 04:00] VITALS: BP 102/50
[2016-08-14 05:49] LABS: BASOPHILS % (AUTO) 0 % (0-10); EOSINOPHILS # (AUTO) 0.1 10^3/uL (0.0-0.3); EOSINOPHILS % (AUTO) 1 % (0-10); LYMPHOCYTES # (AUTO) 0.6 X 10^3 (1.0-4.0); LYMPHOCYTES % (AUTO) 7 % (12-44); MEAN CORPUSCULAR HEMOGLOBIN 28 PG (25-34); MEAN CORPUSCULAR HGB CONC 30 G/DL (32-36); MEAN CORPUSCULAR VOLUME 93 FL (80-99); MEAN PLATELET VOLUME 9.7 FL (7.4-10.4); MONOCYTES # (AUTO) 0.8 X 10^3 (0.0-1.0); MONOCYTES % (AUTO) 10 % (0-12); NEUTROPHILS # (AUTO) 7.3 X 10^3 (1.8-7.8); NEUTROPHILS % (AUTO) 82 % (42-75); PLATELET COUNT 252 10^3/uL (130-400); RED BLOOD COUNT 3.36 10^6/uL (4.35-5.85); RED CELL DISTRIBUTION WIDTH 19.1 % (10.0-14.5); WHITE BLOOD COUNT 8.8 10^3/uL (4.3-11.0)
[2016-08-14 06:04] LABS: CALCIUM 8.4 MG/DL (8.5-10.1); CREATININE SERUM 1.35 MG/DL (0.60-1.30); POTASSIUM 4.1 MMOL/L (3.6-5.0)
[2016-08-14] MEDS: CATHETER FLUSH 10 ML SYR IV SCH ×2 (06:08→09:37)
[2016-08-14] MEDS: inSUlin (REGULAR) HUMAN 1 UNIT/0.01 ML (CHARGE PER UNIT) SC SCH ×3 (06:08→15:30)
[2016-08-14] MEDS: metFORMIN XR 500 MG (GLUCOPHAGE XR) TAB PO SCH ×2 (06:08→16:36)
[2016-08-14] MEDS: RT-ADVAIR HFA 115/21 MCG PER PUFF IH SCH ×2 (06:33→18:37)
[2016-08-14 08:00] VITALS: BP 166/97
[2016-08-14] MEDS ORDERED: lisINopril 5 MG (PRINIVIL) TABLET PO SCH (09:00)
[2016-08-14] MEDS: FUROSEMIDE 40 MG/4 ML INJ (LASIX) IVP SCH (09:37)
[2016-08-14] MEDS: LACTULOSE SYRUP 10GM/15ML (ENULOSE) 30ML UDC PO SCH (09:37)
[2016-08-14] MEDS: SENNA W/DOCUSATE (SENOKOT S) TABLET PO SCH (09:37)
[2016-08-14] MEDS: warFARin 3 MG (COUMADIN) TAB PO SCH (09:38)
[2016-08-14] MEDS: DILTIAZEM 240 MG (CARDIZEM CD) CAP PO SCH (09:38)
--- NOTE | 2016-08-14 11:03 | Cardiology Progress Note ---
Subjective Subjective/Events-last exam patient is sitting in a chair, feeling better, mild dyspnea, no chest pain. Review of Systems General: No Chills, No Night Sweats, No Fatigue, No Malaise, No Appetite, No Other HEENT: No Head Aches, No Visual Changes, No Eye Pain, No Ear Pain, No Dysphasia , No Sinus Congestion, No Post Nasal Drip, No Sore Throat, No Other Pulmonary: DyspneaNo Cough, No Pleuritic Chest Pain, No Other Cardiovascular: No: Chest Pain, Edema, Lt Headedness, Orthopnea, Other, Palpitations, Paroxysmal Noc. Dyspnea Objective-Cardiology Exam Last Set of Vital Signs Vital Signs 08/13/16 08/14/16 15:10 10:38 Pulse Ox 95 O2 Delivery High Flow N/C O2 Flow Rate 8.00 FiO2 60 Capillary Refill : Greater Than 3 Seconds I&O Intake and Output 08/14/16 00:00 Intake Total 1987.5 ml Output Total 2125 ml Balance -137.5 ml Intake Oral 900 ml IV Total 1087.5 ml Output Urine Total 2125 ml # Bowel Movements 1 General: Alert, Oriented X3 HEENT: Atraumatic, PERRLA Lungs: Clear to Auscultation, Normal Air Movement Heart: Normal S1, Normal S2, Other (irregularly irregular) Abdomen: Soft, No Tenderness, No Hepatosplenomegaly Extremities: No Clubbing, Normal Pulses, Other (trace edema BLE) Skin: No Rashes, No Breakdown Neuro: Normal Speech, Cranial Nerves 3-12 NL Psych/Mental Status: Mental Status NL, Mood NL Results Lab Laboratory Tests 08/14/16 05:28 A/P-Cardiology Admission Diagnosis AE COPD Pneumonia Chronic afib Diastolic dysfunction Assessment/Plan Pneumonia/AE COPD, improving managed by primary care physician, having difficulty with delayed chung, awaiting lift chair at home. Acute on chronic diastolic CHF, better at this time, continue to monitor, add low dose lisinopril, monitor BP Permanent atrial fibrillation, HR better controlled today. Continue Cardizem and Toprol XL and continue to monitor. [id number] score is 5. Is on stroke prophylaxis with oral warfarin. INR therapeutic. Continue to monitor. Coronary artery disease, history of 2.5x18 mm [place] stent to the circumflex artery, 2 stents to the right coronary artery using Promus stent 3.0x15 mm and 3.5x15 mm done in 2010. Had a cardiac catheterization on April 07, 2016 showing moderate coronary artery disease, moderate in-stent restenosis in the circumflex artery, mild to moderate disease in the right coronary artery, treated conservatively. Peripheral arterial disease, successful PCI to chronic total occlusion of the L SFA on 04/07/16. Carotid artery stenosis-left moderate ICA stenosis, 40-59 percent, right mild ICA stenosis less than 40 percent per most recent carotid duplex done in March 2016 Chronic tobacco use - he quit 8 weeks ago. Encouraged continuation of smoking cessation. COPD managed by PCP Hypertension, well controlled on the current medications, continue to monitor blood pressure Hyperlipidemia- continue to monitor. Diabetes mellitus, managed by PCP Pulmonary hypertension secondary to COPD Hypothyroidism, followed and managed by PCP Clinical Quality Measures DVT/VTE Risk/Contraindication: Risk Factor Score Per Nursin RFS Level Per Nursing on Admit: 4+=Very High JAVI WALTER MD Aug 14, 2016 11:03
[2016-08-14 12:00] VITALS: BP 142/84
[2016-08-14] MEDS: VANCOMYCIN 1250 MG/NS 250 ML IVPB IV SCH ×2 (12:12)
[2016-08-14 16:00] VITALS: BP 110/60
[2016-08-14 19:23] VITALS: BP 110/60
== END 2016-08-14 19:23 | disposition hospice, home (50) | DRG 189 ==
LOC: EDUNIT# 18:03 → ER 18:04 → ICU 20:31 → 4TH 08-06 14:35
PROVIDERS: ADMIT Internal Medicine; ATTEND Internal Medicine
DX: J96.21 Acute and chronic respiratory failure with hypoxia (principal); J44.0 Chronic obstructive pulmonary disease with (acute) lower respiratory infection; J18.9 Pneumonia, unspecified organism; J44.1 Chronic obstructive pulmonary disease with (acute) exacerbation; I13.0 Hypertensive heart and chronic kidney disease with heart failure and stage 1 through stage 4 chronic kidney disease, or unspecified chronic kidney disease; I50.33 Acute on chronic diastolic (congestive) heart failure; N18.9 Chronic kidney disease, unspecified; D63.1 Anemia in chronic kidney disease; I27.81 Cor pulmonale (chronic); I48.2 Chronic atrial fibrillation; I25.10 Atherosclerotic heart disease of native coronary artery without angina pectoris; E78.00 Pure hypercholesterolemia, unspecified; E11.65 Type 2 diabetes mellitus with hyperglycemia; E03.9 Hypothyroidism, unspecified; G47.33 Obstructive sleep apnea (adult) (pediatric); I27.2 Other secondary pulmonary hypertension; G25.81 Restless legs syndrome; F03.90 Unspecified dementia, unspecified severity, without behavioral disturbance, psychotic disturbance, mood disturbance, and anxiety; K59.00 Constipation, unspecified; I65.23 Occlusion and stenosis of bilateral carotid arteries; Z87.891 Personal history of nicotine dependence; Z95.5 Presence of coronary angioplasty implant and graft; Z79.84 Long term (current) use of oral hypoglycemic drugs; Z95.1 Presence of aortocoronary bypass graft; G25.3 Myoclonus
CPT/HCPCS: 36415; 71010; 80048; 80053; 80202; 81000; 82962; 83605; 83735; 83880; 84100; 84439; 84443; 85007; 85025; 85027; 85610; 85730; 86141; 87040; 87070; 87081; 87205; 93005; 93306; 94640; 94660; 94664; 94760; 96365; 96366; 96367; 96375

== ENCOUNTER 2017-01-20 09:01 | Emergency (ER) | payer MEDICARE, OTHER ==
[~2017-01-20] VITALS: Ht 188 cm; Wt 110.0 kg
[~2017-01-20 09:01] MED LIST changes: +DILT180C PO; +LORA2ORA PO; +MORP100S3 PO; +OXYM15MI4 NS; +SODI126M NS; +UMEC1BLS IH
[2017-01-20 09:24] LABS: BASOPHILS % (AUTO) 0 % (0-10); EOSINOPHILS % (AUTO) 0 % (0-10); LYMPHOCYTES # (AUTO) 0.6 X 10^3 (1.0-4.0); LYMPHOCYTES % (AUTO) 5 % (12-44); MEAN CORPUSCULAR HEMOGLOBIN 23 PG (25-34); MEAN CORPUSCULAR HGB CONC 30 G/DL (32-36); MEAN CORPUSCULAR VOLUME 76 FL (80-99); MEAN PLATELET VOLUME 10.7 FL (7.4-10.4); MONOCYTES # (AUTO) 0.7 X 10^3 (0.0-1.0); MONOCYTES % (AUTO) 6 % (0-12); NEUTROPHILS # (AUTO) 9.8 X 10^3 (1.8-7.8); NEUTROPHILS % (AUTO) 89 % (42-75); PLATELET COUNT 191 10^3/uL (130-400); RED BLOOD COUNT 3.55 10^6/uL (4.35-5.85); RED CELL DISTRIBUTION WIDTH 21.7 % (10.0-14.5); WHITE BLOOD COUNT 11.1 10^3/uL (4.3-11.0)
[2017-01-20 09:42] LABS: ALBUMIN 2.7 GM/DL (3.2-4.5); BILIRUBIN,TOTAL 2.2 MG/DL (0.1-1.0); CALCIUM 7.7 MG/DL (8.5-10.1); CREATININE SERUM 1.95 MG/DL (0.60-1.30); ICTERUS 1.6 (0-1.9); POTASSIUM 5.4 MMOL/L (3.6-5.0); TOTAL PROTEIN 5.8 GM/DL (6.4-8.2)
[2017-01-20 10:16] LABS: LYMPHOCYTES % (MANUAL) 1 %; NEUTROPHILS % (MANUAL) 93 %
[2017-01-20 10:17] LABS: ANISOCYTOSIS MODERATE; HYPOCHROMASIA MODERATE; MICROCYTOSIS MODERATE; POIKILOCYTOSIS MODERATE; POLYCHROMASIA SLIGHT; SCHISTOCYTES SLIGHT; TARGET CELLS SLIGHT
[2017-01-20 10:40] LABS: INR 12.8 (0.8-1.4)
--- NOTE | 2017-01-20 11:08 | ED General ---
General Chief Complaint: Abdominal/GI Problems Stated Complaint: VOMITING BLOOD Nursing Triage Note: PT BROUGHT IN BY [facility] WITH C/O N/V AND ABD PAIN. PT IS HOSPICE PT. IT IS REPORTED BY HOSPICE NURSE THAT PT HAS HAD COFFEE GROUND EMESIS SINCE YESTERDAY. PT ABD IS DISTENDED AT THIS TIME. Nursing Sepsis Screen: No Definite Risk Source of Information: Patient Exam Limitations: No Limitations History of Present Illness Time Seen by Provider: 10:35 Initial Comments The patient is a 71-year-old white male known to me. He is on hospice status and home. He was observed to vomit blood this morning. He denies abdominal pain. He has known liver disease. He is on hospice relative to his lung disease and other comorbidities. He had been taking warfarin for stroke prophylaxis with atrial fibrillation. I discussed this with Dr. Garcia and he reported that the patient had an INR greater than 7 in mid December. The warfarin was held for a week and on 12/31 his INR was 2.1. It was then elected because of his liver disease that the anticoagulation was a greater threat to him than the stroke risk and the warfarin was ordered discontinued. He had been taking a 1 mg dose daily at that time. In questioning this morning after the return of the first pro time at greater than 100, it was determined that the 1 mg dose had been discontinued however a family member reported that an old bottle of what she remembered to be 2.5 mg warfarin was now missing and may have been substituted. Timing/Duration: 4-6 Hours Allergies and Home Medications Allergies Coded Allergies: No Known Drug Allergies (Unverified , 07/05/16) Home Medications Diltiazem HCl 180 Mg Cap.er.24h, 180 MG PO DAILY, (Reported) Furosemide 40 Mg Tablet, 80 MG PO DAILY, (Reported) TAKES 2 (40 MG) TABLETS Glimepiride 4 Mg Tablet, 4 MG PO HS, (Reported) Hydrocodone/Acetaminophen 1 Each Tablet, 1 TAB PO Q6H PRN for PAIN, (Reported) Levothyroxine Sodium 150 Mcg Tablet, 150 MCG PO HS, (Reported) Lorazepam 2 Mg/1 Ml Oral.conc, 2 MG PO Q4H, #30 Prescribed by: CHARLA NICOLE on 08/13/16 1123 Metformin HCl 500 Mg Tab.er.24h, 500 MG PO BID, (Reported) Metoprolol Succinate 50 Mg Tab.er.24h, 50 MG PO HS, (Reported) Morphine Sulfate 100 Mg/5 Ml Solution, 5 MG PO Q2H PRN for PAIN, #30 Prescribed by: CHARLA NICOLE on 08/13/16 1123 Oxymetazoline HCl 15 Ml Mist, 1 SPRAY NS DAILY PRN PRN for CONGESTION, (Reported ) Pantoprazole Sodium 40 Mg Tablet.dr, 40 MG PO HS, (Reported) Potassium Chloride 20 Meq Tab.er.prt, 20 MEQ PO BID, (Reported) Pramipexole Di-HCl 1.5 Mg Tablet, 1.5 MG PO HS, (Reported) Sitagliptin Phosphate 100 Mg Tablet, 100 MG PO HS, (Reported) Sodium Chloride 126 Ml Mist, 1 SPRAY NS DAILY PRN PRN for CONGESTION, (Reported) Trazodone HCl 50 Mg Tablet, 50 MG PO HS PRN for SLEEP, (Reported) Warfarin Sodium 3 Mg Tablet, 3 MG PO DAILY, #30 GIVE 1/2 TAB DAILY. (CUT 3 MG TAB INTO. IF PROBLEMS CUTTING THE PILLS IN HALF , CALL DR. GARCIA'S OFFICE FOR NEW RX. Prescribed by: HODA NICOLE on 08/13/16 1619 Constitutional: see HPI EENTM: no symptoms reported Respiratory: cough, dyspnea on exertion, short of breath Cardiovascular: no symptoms reported Gastrointestinal: hematemesis Genitourinary: no symptoms reported Musculoskeletal: muscle weakness Skin: other Psychiatric/Neurological: Depressed, Other (sleeps at long intervals) Hematologic/Lymphatic: See HPI Immunological/Allergic: no symptoms reported Past Erjaejw-Ubjomu-Apwnrn Hx Patient Social History Alcohol Use: Occasionally Uses Recreational Drug Use: No Smoking Status: Former Smoker Type Used: Cigars 2nd Hand Smoke Exposure: No Recent Foreign Travel: No Contact w/Someone Who Travel: No Recent Infectious Disease Expo: No Recent Hopitalizations: No Immunizations Up To Date Tetanus Booster (TDap): Unknown PED Vaccines UTD: No Date of Pneumonia Vaccine: Jul 22, 2013 Date of Influenza Vaccine: Jun 01, 2016 Seasonal Allergies Seasonal Allergies: No Surgeries HX Surgeries: Yes (HEART STENTS, LEG STENTS ) Surgeries: Cardiac, Coronary Stent, Vascular Surgery Respiratory Hx Respiratory Disorders: Yes Respiratory Disorders: COPD Cardiovascular Hx Cardiac Disorders: Yes (STENTS) Cardiac Disorders: Atrial Fibrillation, Chronic Edema/Swelling, Coronary Artery Disease, High Cholesterol, Hypertension, Peripheral Vascular Neurological Hx Neurological Disorders: Yes Neurological Disorders: Dementia Reproductive System Hx Reproductive Disorders: No Sexually Transmitted Disease: No HIV/AIDS: No Genitourinary Hx Genitourinary Disorders: No Gastrointestinal Hx Gastrointestinal Disorders: No Musculoskeletal Hx Musculoskeletal Disorders: Yes (RESTLESS LEG SYNDROME) Endocrine Hx Endocrine Disorders: Yes Endocrine Disorders: Hypothyroidsim, Diabetes, Non-Insulin dep HEENT HX ENT Disorders: Yes (WEARS GLASSES TO READ) Hearing Impairment: Denies Cancer Hx Cancer: No Psychosocial Hx Psychiatric Problems: No Integumentary HX Skin/Integumentary Disorder: No Blood Transfusions Hx Blood Disorders: No Adverse Reaction to a Blood Tr: No Family Medical History Significant Family History: Heart Disease, Diabetes, Hypertension Family Medial History: Congestive heart failure 03 FATHER Family history: Arthritis 03 FATHER 03 MOTHER 09 BROTHER 09 SISTER Family history: Hypertension 03 FATHER History of - respiratory disease 03 FATHER 03 MOTHER 09 SISTER No Family History of: Abdominal aortic aneurysm Alcoholism Cancer Family history: Alzheimer's disease Family history: Asthma Family history: Breast disease Family history: Cardiovascular disease Family history: Diabetes mellitus Family history: Gastrointestinal disease Family history: Thyroid disorder Heart disease Kidney disease Myocardial infarction Parkinson's disease Psychotic disorder Seizure disorder Physical Exam Vital Signs Vital Sign - Last 12Hours 01/20/17 09:19 Temp 99.2 Pulse 155 Resp 22 B/P (MAP) 115/90 Pulse Ox 98 O2 Delivery OxyMask Capillary Refill : Less Than 3 Seconds General Appearance: Other (terminally ill appearing and disheveled) Eyes: Bilateral Eye Normal Inspection HEENT: Normal ENT Inspection Neck: Normal Inspection Respiratory: Rales, Rhonci, Other (hypopnea) Cardiovascular: Irregularly Irregular Gastrointestinal: Other (abdomen is huge and with a fluid wave) Extremity: Other (minimum swelling. Bilateral dressings over the distal tibial distribution. Some fresh blood is noted noted at and hands by his anticoagulation) Neurologic/Psychiatric: Other (poorly alert) Progress/Results/Core Measures Results/Orders Lab Results Laboratory Tests Test 01/20/17 09:12 01/20/17 09:53 Range/Units White Blood Count 11.1 H 4.3-11.0 10^3/uL Red Blood Count 3.55 L 4.35-5.85 10^6/uL Hemoglobin 8.1 L 13.3-17.7 G/DL Hematocrit 27 L 40-54 % Mean Corpuscular Volume 76 L 80-99 FL Mean Corpuscular Hemoglobin 23 L 25-34 PG Mean Corpuscular Hemoglobin Concent 30 L 32-36 G/DL Red Cell Distribution Width 21.7 H 10.0-14.5 % Platelet Count 191 130-400 10^3/uL Mean Platelet Volume 10.7 H 7.4-10.4 FL Neutrophils (%) (Auto) 89 H 42-75 % Lymphocytes (%) (Auto) 5 L 12-44 % Monocytes (%) (Auto) 6 0-12 % Eosinophils (%) (Auto) 0 0-10 % Basophils (%) (Auto) 0 0-10 % Neutrophils # (Auto) 9.8 H 1.8-7.8 X 10^3 Lymphocytes # (Auto) 0.6 L 1.0-4.0 X 10^3 Monocytes # (Auto) 0.7 0.0-1.0 X 10^3 Eosinophils # (Auto) 0.0 0.0-0.3 10^3/uL Basophils # (Auto) 0.0 0.0-0.1 10^3/uL Neutrophils % (Manual) 93 % Lymphocytes % (Manual) 1 % Monocytes % (Manual) 6 % Nucleated Red Blood Cells 1 Polychromasia SLIGHT Hypochromasia MODERATE Poikilocytosis MODERATE Anisocytosis MODERATE Microcytosis MODERATE Target Cells SLIGHT Helmet Cells SLIGHT Elliptocytes SLIGHT Schistocytes SLIGHT Sodium Level 135 135-145 MMOL/L Potassium Level 5.4 H 3.6-5.0 MMOL/L Chloride Level 105 98-107 MMOL/L Carbon Dioxide Level 19 L 21-32 MMOL/L Anion Gap 11 5-14 MMOL/L Blood Urea Nitrogen 74 H 7-18 MG/DL Creatinine 1.95 H 0.60-1.30 MG/DL Estimat Glomerular Filtration Rate 34 BUN/Creatinine Ratio 38 H 0-20 Glucose Level 160 H 70-105 MG/DL Calcium Level 7.7 L 8.5-10.1 MG/DL Total Bilirubin 2.2 H 0.1-1.0 MG/DL Aspartate Amino Transf (AST/SGOT) 61 H 5-34 U/L Alanine Aminotransferase (ALT/SGPT) 37 0-55 U/L Alkaline Phosphatase 78 40-136 U/L Total Protein 5.8 L 6.4-8.2 GM/DL Albumin 2.7 L 3.2-4.5 GM/DL Prothrombin Time 99.0 *H 12.2-14.7 SEC INR Comment 12.8 *H 0.8-1.4 My Orders Orders - PIERCE MURRIETA MD Cbc With Automated Diff (01/20/17 09:18) Comprehensive Metabolic Panel (01/20/17 09:18) Protime With Inr (01/20/17 09:18) Ua Culture If Indicated (01/20/17 09:18) Manual Differential (01/20/17 09:12) Human Prothrombin Complx(Pcc) (Kcentra K (01/20/17 11:15) Phytonadione (Adult) Injection (Aquameph (01/20/17 11:15) Medications Given in ED Current Medications Medications Dose Ordered Sig/Rina Route Start Time Stop Time Status Last Admin Dose Admin Phytonadione 10 mg/Sodium Chloride 51 ml @ 102 mls/hr ONCE ONCE IV 01/20/17 11:15 01/20/17 11:44 DC 01/20/17 11:30 102 MLS/HR Prothrombin Complex Concent (Human) 2,000 unit ONCE ONCE IV 01/20/17 11:15 01/20/17 11:16 DC 01/20/17 11:17 2,000 UNIT Vital Signs/I&O Vital Sign - Last 12Hours 01/20/17 09:19 Temp 99.2 Pulse 155 Resp 22 B/P (MAP) 115/90 Pulse Ox 98 O2 Delivery OxyMask Blood Pressure Mean: 98 Departure Communication Progress Notes [address] Garcia. We will proceed with at least partial reversal of his anticoagulation. I then discussed with Diego Magaña clinical senior storage administrator and he will be given K Centra and vitamin K IV and returned to his previous home hospice status Impression Impression: Primary Impression: hyper anticoagulation Additional Impression: Liver failure Disposition: HOME, SELF-CARE Condition: Unchanged Departure-Patient Inst. Decision time for Depature: 11:20 Referrals: DEYA GARCIA MD (PCP/Family) Primary Care Physician Patient Instructions: No Instuctions Given Add. Discharge Instructions: All discharge instructions reviewed with patient and/or family. Voiced understanding. Continue cleaning and dressing the wounds on the lower extremities. Called Dr. Garcia's office if any further problems. PIERCE MURRIETA MD Jan 20, 2017 11:08
[2017-01-20] MEDS ORDERED: HUMAN PROTHROMBIN COMPLX(PCC) 500 UNIT (KCENTRA) IV ONE (11:15)
[2017-01-20] MEDS ORDERED: PHYTONADIONE (ADULT) INJECTION 10 MG in NS (IVPB) 50 ML IV ONE (11:15)
[2017-01-20 14:46] VITALS: BP 115/90
== END 2017-01-20 14:46 | disposition home or self-care (01) ==
LOC: EDUNIT# 09:01 → ER 09:02
DX: K72.90 Hepatic failure, unspecified without coma (principal); D68.8 Other specified coagulation defects; I48.91 Unspecified atrial fibrillation; J44.9 Chronic obstructive pulmonary disease, unspecified; I10 Essential (primary) hypertension; I25.10 Atherosclerotic heart disease of native coronary artery without angina pectoris; E78.00 Pure hypercholesterolemia, unspecified; E03.9 Hypothyroidism, unspecified; E11.9 Type 2 diabetes mellitus without complications; Z79.84 Long term (current) use of oral hypoglycemic drugs; Z95.5 Presence of coronary angioplasty implant and graft; Z86.73 Personal history of transient ischemic attack (TIA), and cerebral infarction without residual deficits; Z79.01 Long term (current) use of anticoagulants; Z87.891 Personal history of nicotine dependence
CPT/HCPCS: 36415; 80053; 85007; 85027; 85610; 87040; 87077; 87186; 96365; 96375